=== PATIENT | female | born 1960 | race Caucasian/White ===

== ENCOUNTER 2017-04-25 08:30 | Outpatient (RCR) | payer MEDICARE, SELFPAY | END 2017-05-04 | LOC: PT 08:30 | PROVIDERS: PCP Internal Medicine Adolescent Medicine; Visit Provider Internal Medicine Adolescent Medicine | DX: M54.5 Low back pain (principal); M25.551 Pain in right hip; M25.552 Pain in left hip | CPT/HCPCS: G8978; G8979; G8980; 97010; 97014; 97110; 97163; G0283 ==

== ENCOUNTER → 2018-09-19 15:04 | Outpatient (CLI) | payer MEDICARE, SELFPAY ==
[2018-09-19 18:10] LABS: Alanine Aminotransferase 18 U/L (12-78); Albumin Level 4.1 gm/dL (3.4-5.0); Albumin/Globulin Ratio 1.2 (1.1-1.8); Alkaline Phosphatase 105 U/L (46-116); Anion Gap 14.2 mEq/L (5-15); Aspartate Amino Transferase 15 U/L (15-37); Bilirubin,Total 0.4 mg/dL (0.2-1.0); Blood Urea Nitrogen 10 mg/dL (7-18); Calcium 9.2 mg/dL (8.5-10.1); Carbon Dioxide 32 mmol/L (21.0-32.0); Chloride 101 mmol/L (98-107); Chol/HDL Ratio 3.6 (1-3.5); Cholesterol 171 mg/dL (140-200); Creatinine,Serum 0.82 mg/dL (0.55-1.02); Estimated Glomerular Filt Rate 71 ml/min (>60); GFR (African American) 86 ML/MIN (>60); Globulin 3.4 gm/dl (1.3-3.2); Glucose 85 mg/dL (74-106); HDL Cholesterol 48 mg/dL (29-89); LDL Cholesterol 101 mg/dL (0-130); Potassium 3.2 mmoL/L (3.5-5.1); Sodium 144 mmol/L (136-145); Total Protein,Serum 7.5 gm/dL (6.4-8.2); Triglycerides 109 mg/dL (30-200); VLDL Cholesterol 22 mg/dL (0-40)
[2018-09-21 18:07] LABS: Vitamin D 25 Hydroxy 40.7 ng/mL (30.0-100.0)
== END ==
PROVIDERS: Visit Provider Nurse Practitioner Family
DX: Z00.00 Encounter for general adult medical examination without abnormal findings; E55.9 Vitamin D deficiency, unspecified; I50.30 Unspecified diastolic (congestive) heart failure; Z72.0 Tobacco use
CPT/HCPCS: 36415; 80053; 80061; 82652

== ENCOUNTER → 2019-06-20 17:08 | Outpatient (CLI) | payer MEDICARE, SELFPAY ==
[2019-06-20 17:48] LABS: Basophils % 0.4 % (0.1-2.0); Eosinophils # 0.2 K/mm3 (0.0-0.4); Eosinophils % 1.9 % (0.1-12.0); Hematocrit 48.9 % (37.0-47.0); Hemoglobin 15.6 g/dL (12.2-16.2); Lymphocytes # 3.8 K/mm3 (0.7-4.5); Lymphocytes % 35.9 % (10-50); Mean Corpuscular HGB Conc 31.9 g/dL (31.8-35.4); Mean Corpuscular Hemoglobin 32.3 pg (27.0-31.2); Mean Corpuscular Volume 101.2 fl (81-99); Mean Platelet Volume 7.8 fl (7.4-10.4); Monocytes # 0.5 K/mm3 (0.1-1.0); Monocytes % 4.3 % (1.7-9.3); Neutrophils # 6.2 K/mm3 (1.8-7.8); Neutrophils % 57.5 % (37.0-80.0); Platelet Count 324 K/mm3 (142-424); Red Blood Count 4.83 M/mm3 (4.20-5.40); Red Cell Distribution Width 12.5 % (11.5-17.5); White Blood Count 10.7 K/mm3 (4.8-10.8)
[2019-06-20 18:47] LABS: Alanine Aminotransferase 15 U/L (9-52); Albumin Level 4.1 g/dL (3.4-5.0); Albumin/Globulin Ratio 1.3 (1.1-1.8); Alkaline Phosphatase 147 U/L (46-116); Anion Gap 13.7 mEq/L (5-15); Aspartate Amino Transferase 15 U/L (15-37); Bilirubin,Total 0.4 mg/dL (0.2-1.0); Blood Urea Nitrogen 11 mg/dL (7-18); Calcium 9.1 mg/dL (8.5-10.1); Carbon Dioxide 30 mmol/L (21.0-32.0); Chloride 105 mmol/L (98-107); Creatinine,Serum 0.78 mg/dL (0.55-1.02); Estimated Glomerular Filt Rate 75 ml/min (>60); GFR (African American) 91 ML/MIN (>60); Globulin 3.2 gm/dl (1.3-3.2); Glucose 69 mg/dL (74-106); Magnesium 1.9 mg/dL (1.4-2.2); Potassium 3.7 mmoL/L (3.5-5.1); Sodium 145 mmol/L (137-145); T4 (Thyroxine) 5.8 ug/dl (4.7-13.3); Thyroid Stimulating Hormone 2.34 uIU/ml (0.358-3.740); Total Protein,Serum 7.3 g/dL (6.4-8.2); Triiodothryronine (T3) Uptake 34 % (31-39)
[2019-06-23 20:59] LABS: Vitamin B12 704 pg/mL (232-1245)
[2019-06-23 21:00] LABS: Vitamin D 25 Hydroxy 49.8 ng/mL (30.0-100.0)
[2019-06-27 07:42] LABS: Lamotrigine (Lamictal) 8.8 ug/mL (2.0-20.0)
== END ==
PROVIDERS: Visit Provider Internal Medicine Adolescent Medicine
DX: R56.9 Unspecified convulsions (principal); E55.9 Vitamin D deficiency, unspecified; Z79.899 Other long term (current) drug therapy
CPT/HCPCS: 36415; 80053; 80168; 82607; 82652; 83735; 84436; 84443; 84479; 85025

== ENCOUNTER → 2019-07-17 16:08 | Outpatient (CLI) | payer MEDICARE, SELFPAY ==
--- NOTE | 2019-07-17 16:14 | XR_ITS ---
PROCEDURE: XR CHEST 2V CLINICAL HISTORY: EMPHYSEMA,COUGH,LT SIDED CHEST WALL PAIN COMPARISON: CXR1 CHEST-PORTABLE from 01/07/2013 CXR CHEST(2 VIEWS-NOT PORTABLE) from 08/21/2016 FINDINGS: The cardiomediastinal silhouette and pulmonary vascularity are within normal limits. Minimal atelectatic changes are present in the right lung base laterally. The remaining lungs are clear. No acute bony abnormalities. IMPRESSION: Minimal right basilar atelectasis Dictated by: Anshu Durant MD 07/17/2019 16:27 Electronically signed by Anshu Durant MD in [place] 07/17/2019 16:27
[2019-07-17 16:51] LABS: Basophils # 0.1 K/mm3 (0-0.2); Basophils % 0.4 % (0.1-2.0); Eosinophils # 0.2 K/mm3 (0.0-0.4); Hematocrit 45.3 % (37.0-47.0); Hemoglobin 14.3 g/dL (12.2-16.2); Lymphocytes # 3.9 K/mm3 (0.7-4.5); Lymphocytes % 33.7 % (10-50); Mean Corpuscular HGB Conc 31.6 g/dL (31.8-35.4); Mean Corpuscular Hemoglobin 32.7 pg (27.0-31.2); Mean Corpuscular Volume 103.5 fl (81-99); Mean Platelet Volume 7.8 fl (7.4-10.4); Monocytes # 0.5 K/mm3 (0.1-1.0); Monocytes % 4.3 % (1.7-9.3); Neutrophils # 6.9 K/mm3 (1.8-7.8); Neutrophils % 59.6 % (37.0-80.0); Platelet Count 321 K/mm3 (142-424); Red Blood Count 4.38 M/mm3 (4.20-5.40); Red Cell Distribution Width 12.6 % (11.5-17.5); White Blood Count 11.6 K/mm3 (4.8-10.8)
[2019-07-17 18:05] LABS: Anion Gap 13.2 mEq/L (5-15); Blood Urea Nitrogen 11 mg/dl (7-17); Calcium 9.8 mg/dl (8.4-10.2); Carbon Dioxide 27 mmol/L (22.0-30.0); Chloride 105 mmol/L (98-107); Estimated Glomerular Filt Rate 73 ml/min (>60); GFR (African American) 88 ML/MIN (>60); Glucose 77 mg/dl (74-100); Potassium 4.2 mmoL/L (3.5-5.1); Sodium 141 mmol/L (136-145)
== END ==
PROVIDERS: Visit Provider Nurse Practitioner Family
DX: R05 Cough (principal); R07.89 Other chest pain; J43.1 Panlobular emphysema
CPT/HCPCS: 36415; 71046; 80048; 85025

== ENCOUNTER 2019-11-11 19:46 | Emergency (ER) | payer MEDICARE, SELFPAY ==
[2019-11-11 20:06] VITALS: BP 110/75; PULSE 69; RESP 19; TEMP 36.7; O2SAT 99; BMI 23.4
[2019-11-11 20:19] VITALS: BP 110/75; PULSE 69; RESP 19; TEMP 36.7; O2SAT 99; BMI 23.4
--- NOTE | 2019-11-11 20:38 | HMH.EDUTC ---
[facility] [place] Impression: Oral hang Shingles rash Qualifiers: Herpes zoster complications: without complications Qualified Code(s): B02.9 - Zoster without complications Disposition: Home, Self-Care Condition on Discharge: Good Instructions: DI for Thrush, Thrush-Adult, Shingles, DI for Shingles Additional Instructions: Take medication as prescribed Follow up with family doctor if no improvement or any worsening of symptoms Return if needed Straight to ER if any worsening of symptoms Keep area clean and dry Use Nystatin as prescribed swish and spit Prescriptions: Acyclovir [Acyclovir 800mg tab] 800 mg PO 5XDAY 7 Days #35 tab Prescription Printed Nystatin [Nystatin Susp 500,000 Units/5mL Udc] 4 ml PO QID 10 Days #160 udc Prescription Printed Referrals: Reinier Bai MD [Primary Care Provider] - As needed Time of Disposition: 21:10 Medical Decision Making - Roosevelt Inquiry Pt receiving controlled substance: No Roosevelt was queried for this patient: No Vital Signs: 11/11/19 20:06 11/11/19 20:19 Temperature 98.0 F 98.0 F Temperature Source Oral Oral Pulse Rate [Right Brachial] 69 69 Respiratory Rate 19 19 Blood Pressure [Right Arm] 110/75 110/75 Blood Pressure [Right Radial Artery] 110/75 Blood Pressure Mean [Right Arm] 86 86 Blood Pressure Mean [Right Radial Artery] 86 Blood Pressure Source [Right Arm] Automatic Cuff Automatic Cuff Blood Pressure Source [Right Radial Artery] Automatic Cuff Blood Pressure Position [Right Arm] Sitting Sitting Blood Pressure Position [Right Radial Artery] Sitting 02 Sat by Pulse Oximetry 99 99 Oxygen Delivery Method Room Air Room Air [facility] [place] - General Stated complaint: Rash Time Seen by Provider: 11/11/19 20:38 Mode of Arrival: Ambulatory Source of Information: Patient Limitations: No Limitations Description of Symptoms (Recalled from Triage Doc. by RN): PATIENT C/O RASH TO NECK HEENT Symptoms (Recalled from RN notes): No Resp Symptoms (Recalled from RN notes): No Skin Symptoms (Recalled from RN notes): Yes MS Symptoms (Recalled from RN notes): No Functional Status (Recalled from RN notes): WNL - History of Present Illness Provider Complaint: Patient states that she has a history of shingles States that she has been having a rash on her neck that stared yesterday and it is burning and feeling prickly States that she noticed it looked like it was going up her throat and spreading to her face. States that also she thinks she may have a yeast infection in her mouth - Related Data Previous Rx's Medication Instructions Recorded Acyclovir [Acyclovir 800mg tab] 800 mg PO 5XDAY 7 Days #35 tab 11/11/19 Nystatin [Nystatin Susp 500,000 4 ml PO QID 10 Days #160 udc 11/11/19 Units/5mL Udc] Allergies Allergy/AdvReac Type Severity Reaction Status Date / Time No Known Allergies Allergy Unverified 04/24/17 14:29 - Worker's Comp Is this a Worker's Comp case?: No [facility] History - Hepatitis A Screen Drug use history?: No High risk sexual behaviors?: No History of sexually transmitted infection?: No Currently employed?: No Childcare worker?: No Do you have indoor plumbing?: Yes Do you have electricity?: Yes Attestation statement:: This patient has been screened for Hepatitis A risk factors. I have reviewed the patient's past medical history: Yes Fractures: Yes (RIB) - Social History Alcohol Intake: never Occupational Status: other ROS Obtained: Yes All systems reviewed & no additional complaints, Yes Systems reviewed as appropriate & no additional complaints - Constitutional Constitutional: Reports system reviewed and no additional complaints, except as docu - Eyes Eyes: Reports system reviewed and no additional complaints, except as docu - ENT Ears, Nose, Mouth, and Throat: Reports other (white patches in roof of mouth) - Respiratory Respiratory: Yes system reviewed and no additional complaints, except as docu
[2019-11-11 21:15] VITALS: BP 110/75; PULSE 69; RESP 19; TEMP 36.7; O2SAT 99
== END 2019-11-11 21:20 | disposition home or self-care (01) ==
PROVIDERS: Emergency Provider Nurse Practitioner; PCP Internal Medicine Adolescent Medicine
DX: B02.9 Zoster without complications (principal); B37.0 Candidal stomatitis
CPT/HCPCS: 99201

== ENCOUNTER → 2020-08-18 14:22 | Outpatient (CLI) | payer MEDICARE, SELFPAY ==
--- NOTE | 2020-08-18 14:30 | XR_ITS ---
PROCEDURE: XR SHOULDER LT MIN 2V CLINICAL INDICATION: LT SHOULDER PAIN COMPARISON: No exams were available for comparison FINDINGS: No fracture or dislocation. No lytic or blastic change. There is normal mineralization. There are mild osteoarthritic changes of the glenohumeral joint. No significant subacromial stenosis. A small well-circumscribed cystic areas present in the humeral head and may be due to small geode. This measures approximately 6 mm. Other findings:None. IMPRESSION: Mild osteoarthritic change of the glenohumeral joint Dictated by: Anshu Durant MD 08/18/2020 15:50 Anshu Durant MD in [place] 08/18/2020 15:50
== END ==
PROVIDERS: PCP Internal Medicine Adolescent Medicine; Visit Provider Physician Assistant Medical
DX: M25.512 Pain in left shoulder (principal)
CPT/HCPCS: 73030

== ENCOUNTER → 2020-10-12 12:12 | Outpatient (CLI) | payer MEDICARE, SELFPAY ==
[2020-10-12 13:15] LABS: Basophils # 0.1 K/mm3 (0-0.2); Basophils % 0.7 % (0.1-2.0); Eosinophils # 0.2 K/mm3 (0.0-0.4); Eosinophils % 2.3 % (0.1-12.0); Hematocrit 43.8 % (37.0-47.0); Hemoglobin 14.7 g/dL (12.2-16.2); Lymphocytes # 3.1 K/mm3 (0.7-4.5); Lymphocytes % 36.5 % (10-50); Mean Corpuscular HGB Conc 33.5 g/dL (31.8-35.4); Mean Corpuscular Hemoglobin 33.8 pg (27.0-31.2); Mean Corpuscular Volume 100.8 fl (81-99); Mean Platelet Volume 8.2 fl (7.4-10.4); Monocytes # 0.4 K/mm3 (0.1-1.0); Monocytes % 4.9 % (1.7-9.3); Neutrophils # 4.7 K/mm3 (1.8-7.8); Neutrophils % 55.7 % (37.0-80.0); Platelet Count 302 K/mm3 (142-424); Red Blood Count 4.35 M/mm3 (4.20-5.40); White Blood Count 8.4 K/mm3 (4.8-10.8)
[2020-10-12 14:14] LABS: Carbon Dioxide 34 mmol/L (22.0-30.0); Chloride 101 mmol/L (98-107); Potassium 3.8 mmoL/L (3.5-5.1); Sodium 141 mmol/L (136-145)
[2020-10-12 14:15] LABS: Alanine Aminotransferase 11 U/L (12-78); Albumin Level 4.5 g/dl (3.5-5.0); Albumin/Globulin Ratio 1.8 (1.1-1.8); Alkaline Phosphatase 117 U/L (38-126); Anion Gap 9.8 mEq/L (5-15); Aspartate Amino Transferase 29 U/L (14-36); Bilirubin,Total 0.5 mg/dl (0.2-1.3); Blood Urea Nitrogen 12 mg/dl (7-17); Calcium 9.2 mg/dl (8.4-10.2); Chol/HDL Ratio 3.1 (1-3.5); Cholesterol 155 mg/dl (140-200); Estimated Glomerular Filt Rate 73 ml/min (>60); GFR (African American) 88 ML/MIN (>60); Globulin 2.5 g/dL (1.3-3.2); Glucose 76 mg/dl (74-100); HDL Cholesterol 50 mg/dl (40-60); Triglycerides 102 mg/dl (30-150); VLDL Cholesterol 20 mg/dL (0-40)
[2020-10-12 14:26] LABS: Direct LDL Cholesterol 79.54 mg/dL (100-129)
[2020-10-12 14:32] LABS: 25-OH Vitamin D, Total 43.4 ng/mL (30-100)
[2020-10-12 14:44] LABS: Thyroid Stimulating Hormone 4.73 uIU/mL (0.465-4.68)
[2020-10-12 15:04] LABS: Vitamin B12 539 pg/mL (239-931)
== END ==
PROVIDERS: Visit Provider Nurse Practitioner Family
DX: Z00.00 Encounter for general adult medical examination without abnormal findings (principal); I50.30 Unspecified diastolic (congestive) heart failure; I11.0 Hypertensive heart disease with heart failure; R30.0 Dysuria; R53.83 Other fatigue
CPT/HCPCS: 36415; 80053; 80061; 82306; 82607; 84443; 85025; 87086; 87088; 87186

== ENCOUNTER → 2020-10-12 13:28 | Outpatient (CLI) | payer MEDICARE, SELFPAY | PROVIDERS: Visit Provider Nurse Practitioner Family | DX: R30.0 Dysuria (principal) | CPT/HCPCS: 87086; 87088; 87186 ==

== ENCOUNTER → 2020-10-26 15:03 | Outpatient (CLI) | payer MEDICARE, SELFPAY ==
--- NOTE | 2020-10-26 15:07 | CT_ITS ---
PROCEDURE: CT LUNG SCREENING CLINICAL INDICATION: H/O NICOTINE DEPENDENCE Current smoker 50 pack year smoking history copd Emphysema No prior COMPARISON: No exams were available for comparison TECHNIQUE: The exam was performed on a GE Light Speed [address] scanner using 2.90 mGy CTDI. A low dose helical CT CHEST was performed on a multi-detector scanner. All CT scans at the facility use one or more dose reduction, viz: automated exposure control, ma/kV adjustment per patient size (including targeted exams where dose is matched to indication, i.e. head), or iterative reconstruction technique. The LDCT was performed in a facility that meets the criteria for the screening program. Data regarding this exam was submitted to ACR which is an approved registry. The order for this exam indicates that it came as a result of a lung cancer screening counseling shard decision-making visit that included all the elements required of such a visit including smoking cessation. The radiologist interpreting this exam meets the CMS criteria for the LDCT lung cancer screening program. The exam is reported using the Lung-RADS classification scale and reported to the ACR registry. NOTE: This study was performed for the specific purposes of lung cancer screening and is not an alternative to diagnostic chest CT. RADIATION DOSE: CTDI vol(CT dose Index-volume) = 2.90mG DLP (Dose Length Product) = 102.38 mGcm FINDINGS: COPD with centrilobular emphysema with scattered areas of scarring. There is a spiculated 8x 8 x 10 mm nodule within the right apex medially which is suspicious. This nodule is noncalcified. There is mild bronchial thickening. On image 23 there is a subpleural nodule in the right upper lobe at 3 mm and a 4 mm nodule in the right upper lobe medially there are few small hyperdense nodules suggestive small granulomas. No mediastinal or hilar adenopathy apparent. OTHER FINDINGS: Coronary artery calcifications. The right adrenal gland is enlarged at 2 cm with an average density of -5 Hounsfield units consistent with an adenoma. The left adrenal gland is also enlarged at 2.2 cm with an average density of -17 Hounsfield units consistent with an adenoma. On the most inferior image there is an isodense nodule lying along the left renal vein at 2 [address] in[address] imaged. Abdomen CT without and with IV contrast and oral contrast may provide further evaluation. There are old bilateral rib fractures. IMPRESSION: Lung-RADS Category 4A Suspicious. Spiculated nodule in the right apex. This could represent an area of scarring or early neoplasm. Follow-up: Suggest PET-CT for further evaluation. Bilateral adrenal nodules. Indeterminate 2 cm soft tissue density lies anterior to the left renal vein. This is incompletely imaged. Suggest abdomen CT without and with contrast with 3 phase imaging and with oral contrast Dictated by: Anshu Durant MD 11/02/2020 08:32 Anshu Durant MD in [place] 11/02/2020 08:32
--- NOTE | 2020-10-26 15:07 | MM_ITS ---
PROCEDURE INFORMATION: Exam: Screening 3D Mammography Exam date and time: 10/26/2020 3:07 PM Age: 60 years old Clinical indication: Encounter for screening mammogram for malignant neoplasm of breast TECHNIQUE: Imaging protocol: Screening tomosynthesis and 2D mammography including computer-aided detection (CAD) when performed. Patient difficult to position. Patient kept shaking during the examination. COMPARISON: [facility] DIG MAMM-SCREEN KERRI 03/02/2016 10:13 AM FINDINGS: MAMMOGRAPHY: Breast composition: The breast tissue is composed of scattered areas of fibroglandular density. Mass: None. Architectural distortion: None. Calcifications: No suspicious calcifications. Asymmetric density: None. Skin thickening: None. Axillary adenopathy: None. Other findings: There is limited evaluation of the pectoralis muscles and inframammary folds bilaterally. Patient unable to tolerate the exam. IMPRESSION: Limited exam. No mammographic evidence of malignancy. Annual screening is recommended unless otherwise clinically indicated. ASSESSMENT: BI-RADS Category 1: Negative
== END ==
PROVIDERS: PCP Internal Medicine Adolescent Medicine; Visit Provider Nurse Practitioner Family
DX: Z12.31 Encounter for screening mammogram for malignant neoplasm of breast (principal); Z87.891 Personal history of nicotine dependence; Z12.2 Encounter for screening for malignant neoplasm of respiratory organs
CPT/HCPCS: 71271; 77063; 77067

== ENCOUNTER → 2021-03-14 07:55 | Outpatient (CLI) | payer MEDICARE, SELFPAY ==
--- NOTE | 2021-03-14 08:10 | CT_ITS ---
PROCEDURE: CT CHEST WO CON CLINICAL INDICATION: lung nodule COMPARISON: CT CT LUNG SCREENING from 10/26/2020 TECHNIQUE: Axial images obtained with sagittal and coronal reformats. All CT scans at the facility use one or more dose reduction, viz: automated exposure control, ma/kV adjustment per patient size (including targeted exams where dose is matched to indication, i.e. head), or iterative reconstruction technique. FINDINGS: HEART AND MEDIASTINAL STRUCTURES: Coronary artery calcifications. No mediastinal or hilar mass or adenopathy. There is a small exophytic right thyroid nodule projecting off the anterior medial aspect of the right thyroid gland measuring approximately 1 cm. LUNGS AND PLEURAL SPACES: COPD with centrilobular emphysema. The spiculated right apical nodule is once again noted but appears slightly smaller measuring 5 x 5 mm previously 10 x 8 mm. Small linear opacity in the right apex medially image 19 series 3 with nodular component superiorly at 3 mm is noted not readily apparent previously possibly due to an area of atelectatic change. A new subpleural opacity is present in the left upper lobe laterally image 22 series 3 also somewhat linear in nature and may be due to an area of subpleural atelectatic change. A new 5 mm Patrizia fissural nodule is present in the superior segment of the left lower lobe. 3 mm nodule right upper lobe medially image 25 series 3 unchanged. Subpleural opacity right upper lobe at 3 mm unchanged. New 5 x 2 mm opacity left upper lobe image 17 series 3. No effusions or infiltrates. BONY STRUCTURES: No acute bony abnormalities apparent.Old left-sided rib fractures. UPPER ABDOMEN: Bilateral hypodense adrenal nodules consistent with adenomas. I so density anterior to the left renal vein once again noted and may be related to inferior extension of the left adrenal adenoma. CT abdomen with and without contrast with adrenal washout images may provide further evaluation ADDITIONAL FINDINGS: No other significant abnormalities. IMPRESSION: Spiculated right apical nodule appears slightly smaller. There are other stable nodules present as well as new small subpleural and parenchymal opacities as described above. Differential diagnosis would include inflammatory/infectious etiology versus neoplasm such as metastatic disease. Continued follow-up is suggested. New small right thyroid nodule at approximately 1 cm. Adenomatous involvement of the adrenal glands. Low-density nodule anterior to the left renal vein may represent extension of the left adrenal adenoma and may be confirmed with CT abdomen without and with contrast with adrenal washout images Dictated by: Asnhu Durant MD 03/15/2021 09:57 Anshu Durant MD in [place] 03/15/2021 09:57
== END ==
PROVIDERS: PCP Internal Medicine Adolescent Medicine; Visit Provider Internal Medicine Pulmonary Disease
DX: R91.8 Other nonspecific abnormal finding of lung field (principal)
CPT/HCPCS: 71250

== ENCOUNTER → 2021-04-13 14:23 | Outpatient (CLI) | payer MEDICARE, SELFPAY ==
--- NOTE | 2021-04-13 14:23 | US_ITS ---
PROCEDURE: US THYROID CLINICAL INDICATION: Thyroid nodule COMPARISON: US THY US THYROID from 12/02/[address] CHEST WO CON from 03/14/2021 FINDINGS: Right lobe: 3.4 x 1.5 x 1.3 cm. Diffuse heterogeneous echogenicity. Mostly cystic nodule in the upper pole at 5 mm. Hypoechoic nodule upper pole anteriorly at 2 mm. Left lobe: 3.9 x 1.6 x 1.3 cm. 3 mm hypoechoic nodule upper pole. Diffuse heterogeneous echogenicity. Isthmus: The isthmus has an unremarkable appearance. There was a questionable isthmus nodule on the CT scan which was probably due to partial volume averaging artifact from the right lobe and not a true nodule. Additional findings: IMPRESSION: Bilateral heterogeneous echogenicity of the thyroid gland with benign-appearing nodules. Dictated by: Anshu Durant MD 04/13/2021 16:44 Anshu Durant MD in [place] 04/13/2021 16:44
== END ==
PROVIDERS: PCP Internal Medicine Adolescent Medicine; Visit Provider Internal Medicine Pulmonary Disease
DX: E04.1 Nontoxic single thyroid nodule (principal)
CPT/HCPCS: 76536

== ENCOUNTER → 2021-06-16 14:56 | Outpatient (CLI) | payer MEDICARE, SELFPAY ==
--- NOTE | 2021-06-16 14:56 | CT_ITS ---
FINAL REPORT TECHNIQUE: Axial CT images were performed from the lung apices through the upper abdomen. Coronal reformats were submitted. This study was performed with techniques to keep radiation doses as low as reasonably achievable (ALARA). Individualized dose reduction techniques using automated exposure control or adjustment of mA and/or kV according to the patient's size were employed. CLINICAL HISTORY: 3-month follow-up, nodule COMPARISON: 03/14/2021 FINDINGS: There is no axillary adenopathy. There is no hilar or mediastinal mass or adenopathy. Heart size is normal. There is no pericardial or pleural effusion. There is mild scarring and moderate emphysema. There is a right apical nodule measuring 5 mm, previously measured 5 mm. This is well-seen on image #14. Multiple other smaller nodules are seen bilaterally. These are all stable in size and appearance. There are several calcified granulomas. There is bilateral adrenal gland enlargement, likely adenomas. This is stable since the prior. IMPRESSION: Multiple small nodules, stable since prior. Consider additional follow-up CT in 6-12 months. Reviewed, Interpreted and Dictated by Fab Jhaveri III, MD Transcribed by Consuelo Myers Authenticated by Fab Jhaveri III, MD on 06/16/2021 04:27:[address] [facility]
== END ==
PROVIDERS: PCP Internal Medicine Adolescent Medicine; Visit Provider Internal Medicine Pulmonary Disease
DX: R91.8 Other nonspecific abnormal finding of lung field (principal)
CPT/HCPCS: 71250

== ENCOUNTER → 2021-09-08 11:37 | Outpatient (CLI) | payer MEDICARE, SELFPAY | PROVIDERS: PCP Internal Medicine Adolescent Medicine; Visit Provider Internal Medicine Pulmonary Disease | DX: R06.00 Dyspnea, unspecified (principal) | CPT/HCPCS: 94060; 94618; 94726; 94729 ==

== ENCOUNTER 2023-11-07 14:35 | Outpatient (CLI) | payer MEDICARE, SELFPAY ==
--- NOTE | 2023-11-07 14:47 | XR_ITS ---
FINAL REPORT CLINICAL HISTORY: spondylosis, neck and back pain COMPARISON: None FINDINGS: CERVICAL SPINE 5 views were obtained. There is no acute fracture or malalignment. There is mild and moderate degenerative change of the lower cervical spine. Mild kyphosis is centered at C5. There is mild right C3-4 and left C3-4 and C5-6 neural foraminal narrowing. IMPRESSION: Mild and moderate degenerative changes with levels of mild neural foraminal narrowing as above. LUMBOSACRAL SPINE 6 views of the lumbar spine were obtained including flexion and extension views. There is no acute fracture or malalignment. There is rightward curvature of the lumbar spine. Mild degenerative changes are noted. There are vascular calcifications. No abnormal movement is noted on flexion or extension views. IMPRESSION: Mild degenerative changes. No abnormal movement on flexion or extension. Reviewed, Interpreted and Dictated by Fab Jhaveri III, MD Transcribed by Abeba Mccrary Authenticated and [facility]
== END 2023-11-07 23:59 | disposition home or self-care (01) ==
LOC: RAD 14:39
PROVIDERS: PCP Physician Assistant Medical; Visit Provider Physician Assistant Medical
DX: M47.812 Spondylosis without myelopathy or radiculopathy, cervical region (principal); M47.816 Spondylosis without myelopathy or radiculopathy, lumbar region
CPT/HCPCS: 72084

== ENCOUNTER 2023-12-25 19:07 | Inpatient (IN) | payer MEDICARE, SELFPAY ==
[2023-12-25] VITALS (11 sets, daily range): BP systolic 141–150; BP diastolic 71–89; PULSE 80–129; RESP 20–26; TEMP 36.9–37.1; O2SAT 92–99; BMI 15.7
--- NOTE | 2023-12-25 19:26 | XR_ITS ---
PROCEDURE INFORMATION: Exam: XR Chest Exam date and time: 12/25/2023 7:57 PM Age: 63 years old Clinical indication: Cough and shortness of breath; Additional info: Cough, SOA TECHNIQUE: Imaging protocol: Radiologic exam of the chest. Views: 1 view. COMPARISON: CT CHEST WO CON 06/16/2021 3:05 PM FINDINGS: Lungs: Hyperinflated lungs consistent with emphysema. Mild ill-defined ground-glass opacities at both lung bases. Pleural spaces: Normal. No pleural effusion. No pneumothorax. Heart/Mediastinum: Normal. No cardiomegaly. Vasculature: Atherosclerotic thoracic aorta. Bones/joints: Old left posterior 8th rib fracture. IMPRESSION: 1. Emphysema. 2. Mild ill-defined ground-glass opacities at both lung bases could be due to atypical pneumonia.
--- NOTE | 2023-12-25 19:29 | ED_ITS ---
Discharge Plan Disposition Patient Disposition: Admitted Condition: Critical Clinical Impressions Clinical Impression: Acute on chronic respiratory failure with hypoxia and hypercapnia, Acute respiratory distress, Pneumonia, Acute exacerbation of chronic obstructive pulmonary disease Discharge ED Provider: Marah Live HPI General Chief Complaint: Shortness of Breath/Dyspnea Stated Complaint: Difficulty breathing Time Seen by Provider: 12/25/23 19:17 Mode of Arrival: Wheelchair Source of Information: Patient Limitations: No Limitations Description of Symptoms (Recalled from ER Triage Doc. by RN): Patient presents to ED with SOB and cough that started two days ago. Patient usually wears 2L O2 at bedtime and PRN, past two days patient has been wearing O2 cont. Patient denies N/V/D and fever. Patient is currentyl on 4L O2 with sats 94%. History of Present Illness HPI narrative: This patient is a 63-year-old female with a history of COPD intermittently on home oxygen as needed, tobacco dependence, multiple pulmonary nodules, and unintentional weight loss presenting to the emergency department for evaluation with concern for shortness of breath. Patient states that she developed shortness of breath and cough 2 to 3 days ago and has had very thick sputum that she is having difficulty getting up. She states she feels like she cannot get her breath. She notes pressure in her chest as a result of this. No other acute concerning abnormalities at this time. Related Data Home Medications ?Medication ?Instructions ?Recorded ?Confirmed atorvastatin 40 mg tablet 40 mg PO HS 03/09/21 12/26/23 furosemide 40 mg tablet 40 mg PO BID 03/09/21 12/26/23 lamotrigine 300 mg tablet,extended 300 mg PO DAILY 03/09/21 12/26/23 release 24 hr mirtazapine 30 mg tablet 30 mg PO HS 03/09/21 12/26/23 oxycodone-acetaminophen 7.5 mg-325 1 tab PO BID 03/09/21 12/26/23 mg tablet potassium chloride 20 mEq 20 meq PO DAILY 03/09/21 12/26/23 tablet,extended release(part/cryst) sertraline 100 mg tablet 200 mg PO DAILY 03/09/21 12/26/23 spironolactone 50 mg tablet 50 mg PO BID 03/09/21 12/26/23 trazodone 150 mg tablet 150 mg PO HS 03/09/21 12/26/23 albuterol sulfate 90 mcg/actuation 1 inh inhalation BIDP PRN 12/26/23 12/26/23 aerosol inhaler shortness of breath or wheezing alendronate 70 mg tablet 70 mg PO WEEKLY 12/26/23 12/26/23 aspirin 81 mg tablet,delayed 81 mg PO DAILY 12/26/23 12/26/23 release glycopyrrolate 9 mcg-formoterol 2 puff inhalation BID 12/26/23 12/26/23 4.8 mcg HFA aerosol inhaler (Bevespi Aerosphere) Allergies Allergy/AdvReac Type Severity Reaction Status Date / Time No Known Allergies Allergy Verified 10/05/21 10:03 [facility] Disclaimer: The information contained in this section may have been updated after the patient was seen, as this information can be updated by other users. Medical History Tobacco abuse disorder Tobacco abuse counseling Multiple pulmonary nodules Smoking greater than 30 pack years Dyspnea on exertion Social History Smoking Status: Current every day smoker alcohol intake: never current occupational status: other Travel in the last 8 weeks: None ROS Obtained: Yes All systems reviewed & no additional complaints except as documented Physical Exam General General appearance: alert, in distress and cachectic Comment: In respiratory distress. Appears much older than stated age. Cachectic Head Head exam: atraumatic and normocephalic Eye Eye exam: Present normal appearance, PERRL and EOMI ENT ENT exam: Present normal exam, normal oropharynx, mucous membranes moist and normal external ear exam Neck Neck exam: Present normal inspection, full ROM and trachea midline; Absent tenderness Chest Chest inspection: Present normal inspection and symmetric chest wall rise; Absent tenderness Respiratory Respiratory exam: Present respiratory distress, accessory muscle use, prolonged expiratory phase and other (Respiratory distress with tachypnea, accessory muscle use, prolonged expiratory phase. Significantly diminished breath sounds bilaterally.) Cardiovascular Cardiovascular exam: Present normal rhythm and tachycardia Abdominal Exam Abdominal exam: Present soft; Absent distention, tenderness or guarding Extremities Exam Extremities exam: Present normal inspection, full ROM and normal capillary refill; Absent tenderness or edema Back Exam Back exam: Present normal inspection and full ROM; Absent tenderness Neurological Exam Neurological exam: Present alert, oriented X3, CN II-XII intact and normal gait; Absent motor sensory deficit Psychiatric Psychiatric exam: Present normal affect and normal mood Skin Skin exam: Present warm and dry HEART Score HEART Score HEART Score assessment performed?: Yes History (anamnesis): Slightly suspicious ECG: Non-specific disturbance Age: >65 years Risk factors: 3 or more risk factors Troponin: </= normal limit HEART Score: 5 Critical Care Critical Care Time Critical Care Time: Yes Attestation: On 12/25/23, the high probability of a clinically significant, sudden or life threatening deterioration of the following system(s) required my full and direct attention, intervention and personal management. The time I documented below is in addition to time spent performing reported procedures but includes the following listed in this critical care notation. Total Time Total Critical Care Time: 45 Medical Decision Making Medical Records Medical records reviewed: Yes I reviewed the patient's medical records. [place] Inquiry Pt receiving controlled substance: No Vital Signs Vital Signs: 12/25/23 19:09 12/25/23 19:32 12/25/23 19:32 Temperature 98.4 F Temperature Source Oral Pulse Rate 96 H Pulse Rate [Right Brachial] 104 H Respiratory Rate 20 Blood Pressure Blood Pressure [Right Arm] 150/89 H Blood Pressure Mean [Right Arm] 109 Blood Pressure Source Blood Pressure Source [Right Arm] Automatic Cuff Blood Pressure Position Blood Pressure Position [Right Arm] Supine 02 Sat by Pulse Oximetry 94 L 92 L Oxygen Delivery Method Nasal Cannula Nasal Cannula Oxygen Flow Rate (LPM) 4 4 12/25/23 20:05 12/25/23 20:33 12/25/23 20:58 Temperature Temperature Source Pulse Rate 129 H 116 H Pulse Rate [Right Brachial] Respiratory Rate Blood Pressure Blood Pressure [Right Arm] Blood Pressure Mean [Right Arm] Blood Pressure Source Blood Pressure Source [Right Arm] Blood Pressure Position Blood Pressure Position [Right Arm] 02 Sat by Pulse Oximetry 94 L Oxygen Delivery Method BiPAP Oxygen Flow Rate (LPM) 12/25/23 21:47 Temperature 98.8 F Temperature Source Axillary Pulse Rate 80 Pulse Rate [Right Brachial] Respiratory Rate 20 Blood Pressure 142/82 H Blood Pressure [Right Arm] Blood Pressure Mean [Right Arm] Blood Pressure Source Automatic Cuff Blood Pressure Source [Right Arm] Blood Pressure Position Supine Blood Pressure Position [Right Arm] 02 Sat by Pulse Oximetry Oxygen Delivery Method BiPAP Oxygen Flow Rate (LPM) Lab Data Labs: Lab Results 12/25/23 19:26: VBG pH 7.38, VBG pCO2 50.9, VBG pO2 46.5 H, VBG HCO3 29.3, VBG Total CO2 30.9 H, VBG O2 Saturation 84.3 H, VBG Base Excess 4.1 H, VBG Lactic Acid 1.6 12/25/23 19:30: WBC 9.7, RBC 4.42, Hgb 14.6, Hct 47.5 H, MCV 107.5 H, MCH 33.0 H , MCHC 30.7 L, RDW 13.1, Plt Count 298, MPV 8.0, Neut % (Auto) 81.8 H, Lymph % (Auto) 10.0, [place] % (Auto) 6.4, Eos % (Auto) 0.4, Baso % (Auto) 1.3, Neut # (Auto) 7.9 H, Lymph # (Auto) 1.0, [place] # (Auto) 0.6, Eos # (Auto) 0.0, Baso # (Auto) 0.1, D-Dimer 0.49, Sodium 140, Potassium 3.3 L, Chloride 102, Carbon Dioxide 31 H, Anion Gap 10.3, BUN 14, Creatinine 0.60, Estimated Creat Clear 33, Estimated GFR 100, Est GFR ( Amer) 121, Glucose 123 H, Lactate 1.2, C alcium 10.3 H, Magnesium 1.4 L, Total Bilirubin 0.3, AST 40 H, ALT 25, Alkaline Phosphatase 85, Troponin I < 0.01, C-Reactive Protein 85.7 H, NT-Pro-B Natriuret Pep 186 H 12/25/23 19:30: NT-Pro-B Natriuret Pep 189 H, Total Protein 7.4, Albumin 4.1, G lobulin 3.3 H, Albumin/Globulin Ratio 1.2, Procalcitonin 0.158 12/25/23 19:30: Procalcitonin 0.178 12/25/23 21:15: VBG pH 7.12 L, VBG pCO2 90.2 H, VBG pO2 106.9 H, VBG HCO3 28.6, VBG Total CO2 31.4 H, VBG O2 Saturation 96.5 H, VBG Base Excess -0.8, VBG Lactic Acid 1.5 12/25/23 19:30 12/25/23 19:30 Response Orders (Tests/Meds): ED MEDICATIONS Generic Name Dose Route Start Last Admin Trade Name Freq PRN Reason Stop Dose Admin Albuterol/Ipratropium 3 ml 12/26/23 14:00 Ipratropium/Albuterol 3 Ml [facility] 01/25/24 13:59 Q4RT KOJO Atorvastatin Calcium 40 mg 12/26/23 21:00 Atorvastatin 40mg Tablet PO 01/25/24 20:59 HS KOJO Budesonide 0.5 mg 12/26/23 18:00 Budesonide 0.5mg/2ml [facility] 01/25/24 17:59 BIDRT KOJO Enoxaparin Sodium 30 mg 12/26/23 09:00 12/26/23 08:55 Enoxaparin 30mg/0.3ml Syringe SQ 01/25/24 08:59 30 mg DAILY KOJO Administration Furosemide 40 mg 12/26/23 09:00 12/26/23 08:55 Furosemide 40 Mg Tablet PO 01/25/24 08:59 40 mg DAILY KOJO Administration Azithromycin 500 mg/ Sodium 250 mls @ 250 mls/hr 12/26/23 21:00 Chloride IV 01/05/24 20:59 2100 KOJO Ceftriaxone Sodium 1 gm/ 50 mls @ 100 mls/hr 12/26/23 09:00 12/26/23 08:55 Sodium Chloride IV 01/05/24 08:59 100 mls/hr 0900 KOJO Administration Lamotrigine 150 mg 12/26/23 21:00 Lamotrigine 100mg Tablet PO 01/25/24 20:59 BID KOJO Methylprednisolone Sodium Succinate 40 mg 12/25/23 21:15 12/26/23 06:15 Methylprednisolone Sod Succ 40mg Vial IV 01/24/24 21:14 40 mg Q8H KOJO Administration Mirtazapine 30 mg 12/26/23 21:00 Mirtazapine 15 Mg Tablet PO 01/25/24 20:59 HS KOJO Oxycodone/Acetaminophen 1 each 12/25/23 21:15 Oxycodone 7.5mg W/Apap 325mg Tablet PO 01/24/24 21:14 Q6HP PRN Moderate Pain (4-6) Ropinirole HCl 1 mg 12/26/23 21:00 Ropinirole 1mg Tablet PO 01/25/24 20:59 HS KOJO Sertraline HCl 200 mg 12/27/23 09:00 Sertraline 100mg Tablet PO 01/26/24 08:59 DAILY KOJO Sodium Chloride 3 ml 12/25/23 20:15 12/26/23 11:19 Sodium Chloride 3% 15ml [facility] 01/24/24 20:14 3 ml ONCE PRN Administration [employer] Sodium Chloride 10 ml 12/26/23 11:22 Sodium Chloride 0.9% 10ml Flush Syringe IV 01/25/24 11:21 NEEDED PRN Maintain IV Site Trazodone HCl 100 mg 12/26/23 21:00 Trazodone 50mg Tablet PO 01/25/24 20:59 HS KOJO Discontinued Medications Generic Name Dose Route Start Last Admin Trade Name Freq PRN Reason Stop Dose Admin Albuterol Sulfate 20 mg 12/25/23 20:04 12/25/23 20:33 Albuterol 0.083% 2.5 Mg/3 Ml [facility] 12/25/23 20:05 20 mg ONCE ONE Administration Albuterol/Ipratropium 9 ml 12/25/23 19:26 12/25/23 19:32 Ipratropium/Albuterol 3 Ml [facility] 12/25/23 19:27 9 ml ONCE ONE Administration Albuterol/Ipratropium 3 ml 12/26/23 12:00 12/26/23 11:19 Ipratropium/Albuterol 3 Ml [facility] 01/25/24 11:59 3 ml Q6RT KOJO Administration Magnesium Sulfate 2 gm in 50 mls @ 50 mls/hr 12/25/23 20:01 12/25/23 20:17 Magnesium Sulfate 2gm/50ml Premix IV 12/25/23 21:00 50 mls/hr ONCE ONE Administration Cefepime HCl 2 gm/ Sodium 100 mls @ 200 mls/hr 12/25/23 20:15 12/25/23 20:34 Chloride IV 12/25/23 20:44 200 mls/hr ONCE ONE Administration Azithromycin 500 mg/ Sodium 250 mls @ 250 mls/hr 12/25/23 20:15 12/25/23 20:36 Chloride IV 12/25/23 20:16 250 mls/hr ONCE ONE Administration Vancomycin HCl 1,000 mg/ 250 mls @ 125 mls/hr 12/25/23 20:30 12/25/23 21:37 Sodium Chloride IV 12/25/23 22:29 125 mls/hr ONCE ONE Administration Lactated Ringer's 1,000 mls @ 999 mls/hr 12/25/23 20:35 12/25/23 20:36 Lactated Ringer's 1000 Ml Bag IV 12/25/23 21:35 999 mls/hr .Q1H1M ONE Administration Lactated Ringer's 1,430 mls @ 715 mls/hr 12/25/23 20:56 12/25/23 22:15 Lactated Ringer's 1000 Ml Bag 30 ml/kg infuse over 2 hr (1430 ml) 12/25/23 22:55 715 mls/hr IV Administration .Q2H ONE Magnesium Sulfate 2 gm in 50 mls @ 50 mls/hr 12/26/23 05:39 12/26/23 07:51 Magnesium Sulfate 2gm/50ml Premix IV 12/26/23 06:38 Not Given ONCE ONE Lorazepam 0.5 mg 12/25/23 20:01 12/25/23 20:33 Lorazepam 2mg/Ml Vial IV 12/25/23 20:02 0.5 mg ONCE ONE Administration Lorazepam 0.25 mg 12/26/23 05:39 12/26/23 07:50 Lorazepam 2mg/Ml Vial IV 12/26/23 05:40 Not Given ONCE ONE Lorazepam 0.25 mg 12/26/23 05:40 12/26/23 07:51 Lorazepam 2mg/Ml Vial IV 12/26/23 05:41 Not Given ONCE ONE Methylprednisolone Sodium Succinate 125 mg 12/25/23 19:26 12/25/23 19:35 Methylprednisolone Sod Succ 125mg Vial IV 12/25/23 19:27 125 mg ONCE ONE Administration Miscellaneous 1 each 12/25/23 20:15 12/25/23 20:53 Vancomycin Consult Request NOTAPPLIC 01/24/24 20:14 1 each CONSULT PHARMACY KOJO Administration Sertraline HCl 100 mg 12/26/23 09:00 12/26/23 08:55 Sertraline 100mg Tablet PO 01/25/24 08:59 100 mg DAILY KOJO Administration Sodium Chloride 10 ml 12/25/23 20:01 Sodium Chloride 0.9% 10ml Vial IV 01/24/24 20:00 NEEDED PRN to Dilute Lorazepam inj Sodium Chloride 10 ml 12/26/23 05:39 Sodium Chloride 0.9% 10ml Vial IV 01/25/24 05:38 NEEDED PRN to Dilute Lorazepam inj ORDERS Category Date Time Status CXR --portable [XR chest portable] Stat Exams 12/25/23 19:26 Completed BNP [NT Pro Brain Natriuretic Pep.] Stat Lab 12/25/23 19:30 Completed BNP [NT Pro Brain Natriuretic Pep.] Stat Lab 12/25/23 19:30 Completed CRP [C-Reactive Protein] Stat Lab 12/25/23 19:30 Completed Complete Blood Count Auto Diff Stat Lab 12/25/23 19:30 Completed Comprehensive Metabolic Panel Stat Lab 12/25/23 19:30 Completed D-Dimer Stat Lab 12/25/23 19:30 Completed Full Resp Panel w/COVID ([facility]) Routine Lab 12/25/23 21:20 Ordered Lactic Acid Stat Lab 12/25/23 19:30 Completed MAG [Magnesium] Stat Lab 12/25/23 19:30 Completed Procalcitonin Stat Lab 12/25/23 19:30 Completed Procalcitonin Stat Lab 12/25/23 19:30 Completed Trop I [Troponin I] Stat Lab 12/25/23 19:30 Completed Troponin I Q3H Lab 12/25/23 22:30 Completed Troponin I Q3H Lab 12/26/23 01:30 Ordered Blood Culture Stat Micro 12/25/23 19:35 Received Sputum Culture & Gram Stain Stat Micro 12/25/23 20:15 Ordered VBG [Venous Blood Gas] Stat RT 12/25/23 19:26 Completed VBG [Venous Blood Gas] Stat RT 12/25/23 21:15 Completed ECG Data Tracing #1: Attestation: I reviewed this ECG and interpreted as documented below: ECG Narrative: Significant motion artifact which degrades study. Sinus tachycardia with a ventricular rate of 107 bpm. No obvious acute ST elevations concerning for ischemia. ECG initial impression date: 12/25/23 ECG initial impression time: 19:41 MDM Narrative Medical Decision Narrative: In summary, this patient is a 63-year-old female presenting to the Emergency Department for evaluation of 2 to 3 days of cough and shortness of breath. Differential diagnoses considered include but are not limited to COPD exacerbation, acute on chronic respiratory failure, pneumonia, viral syndrome, PE, malignancy, ACS, dysrhythmia. Ruling out the most morbid conditions drove assessment. It should be noted patient's history includes COPD with chronic respiratory failure which is not at goal therapy. This complicates all aspects of care by increasing patient's risk for morbidity. I reviewed patient's past medical records and noted previous evaluations by pulmonology in the past for other breathing issues. On exam, the patient is in acute respiratory distress with tachypnea, retractions, significantly diminished breath sounds. She is very cachectic and appears much older than stated age. workup included CBC, CMP, troponin, BNP, VBG, D-dimer, viral swab, chest x-ray, EKG. She was given DuoNebs x 3 as well as IV methylprednisolone. On close reassessment after administration of nebs, patient had increased breath sounds from prior diminished exam. She has diffuse inspiratory and expiratory wheezing with continued severe respiratory distress. She had what I suspect to be as V/Q mismatch after nebs, and she desaturated to the 80's. For her work of breathing, she was then placed on bipap and given continuous albuterol. She became very anxious, so she was given 0.25 mg of IV ativan to help calm her. I did have shared decision making with patient and family, telling her I was concerned she is very sick. She notes she is a full code and would want to be intubated if need be. She had improvement of work of breathing on BiPAP with continuous neb, and she remains alert and conversational. I independently interpreted XR prior to the radiologist read and noted concern for patchy pneumonia. Please see their read for final interpretation. Given how ill- appearing she is, she was started on vancomycin, cefepime, azithromycin and given a sepsis bolus. She was also given IV magnesium. Labs were obtained that demonstrated a surprisingly compensated respiratory acidosis, mild hypokalemia, hypomagnesemia. lactic and CBC normal, but she does have elevated CRP. Ultimately it was felt the patient had been stabilized on BiPAP and deemed to be appropriate for admission. I had an interactive discussion with the hospitalist who admitted the patient for continued monitoring of acute on chronic respiratory failure and pneumonia.
[2023-12-25] MEDS: IPRATROPIUM/ALBUTEROL 3 ML NEB 9 ML IH (19:32)
[2023-12-25] MEDS: METHYLPREDNISOLONE SOD SUCC 125MG VIAL 125 MG IV (19:35)
[2023-12-25 19:38] LABS: Lactate Venous 1.6 mmol/L (0.4-2.0); VBG Base Excess 4.1 mmol/L (-2.4-2.3); VBG HCO3 29.3 mmol/L (23-30); VBG Oxygen Saturation 84.3 % (50-70); VBG PH 7.38 mmol/L (7.31-7.41); VBG PO2 46.5 mmol/L (28-40); VBG Total CO2 30.9 mmol/L (23-27)
--- NOTE | 2023-12-25 19:40 | ECG_ITS ---
APPROVED REPORT Exam: Resting ECG HR:107 bpm ECG Measurements Heart Rate 107 AXES ID 147 P 85 QRSd 94 QRS 132 QT 337 T 77 QTc 400 Conclusion SINUS TACHYCARDIA RIGHT ATRIAL ENLARGEMENT [0.3mV P-WAVE] POSSIBLE LEFT ATRIAL ENLARGEMENT [-0.1mV P-WAVE IN V1/V2] MARKED ST ELEVATION, CONSIDER INFERIOR INJURY [MARKED ST ELEVATION W/O NORMALLY INFLECTED T-WAVE IN II/aVF] Significant gerardter, EKG nondiagnostic Electronically signed by : DAO CHANG, 12/28/2023 23:29:40
[2023-12-25 19:41] LABS: VBG PCO2 50.9 mmol/L (35-51)
--- NOTE | 2023-12-25 19:41 | PC.NURSE ---
critical VBG reuslts read to Michael. reported to Dr. Live
--- NOTE | 2023-12-25 19:44 | PC.NURSE ---
rad in room for chest x-ray
[2023-12-25 19:56] LABS: Basophils # 0.1 K/mm3 (0-0.2); Basophils % 1.3 % (0.1-2.0); Eosinophils % 0.4 % (0.1-12.0); Hematocrit 47.5 % (37.0-47.0); Hemoglobin 14.6 g/dL (12.2-16.2); Mean Corpuscular HGB Conc 30.7 g/dL (31.8-35.4); Mean Corpuscular Volume 107.5 fl (81-99); Monocytes # 0.6 K/mm3 (0.1-1.0); Monocytes % 6.4 % (1.7-9.3); Neutrophils # 7.9 K/mm3 (1.8-7.8); Neutrophils % 81.8 % (37.0-80.0); Platelet Count 298 K/mm3 (142-424); Red Blood Count 4.42 M/mm3 (4.20-5.40); Red Cell Distribution Width 13.1 % (11.5-17.5); White Blood Count 9.7 K/mm3 (4.8-10.8)
[2023-12-25 20:07] LABS: Alanine Aminotransferase 25 U/L (12-78); Albumin Level 4.1 g/dl (3.5-5.0); Albumin/Globulin Ratio 1.2 (1.1-1.8); Alkaline Phosphatase 85 U/L (38-126); Anion Gap 10.3 mEq/L (5-15); Aspartate Amino Transferase 40 U/L (14-36); Bilirubin,Total 0.3 mg/dl (0.2-1.3); Blood Urea Nitrogen 14 mg/dl (7-17); Calcium 10.3 mg/dl (8.4-10.2); Carbon Dioxide 31 mmol/L (22.0-30.0); Chloride 102 mmol/L (98-107); Creatinine Clearance Estimated 33 mL/min (50-200); Estimated Glomerular Filt Rate 100 ml/min (>60); GFR (African American) 121 ML/MIN (>60); Globulin 3.3 g/dL (1.3-3.2); Glucose 123 mg/dl (74-100); Potassium 3.3 mmoL/L (3.5-5.1); Sodium 140 mmol/L (136-145); Total Protein,Serum 7.4 g/dl (6.3-8.2)
[2023-12-25 20:12] LABS: C-Reactive Protein 85.7 mg/L (0-4)
[2023-12-25 20:13] LABS: D-Dimer 0.49 ug/mL (0.0-0.5)
[2023-12-25] MEDS: MAGNESIUM SULFATE IN WATER 2 GM/50 ML PIGGYBACK IV (20:17)
[2023-12-25 20:19] LABS: NT Pro Brain Natriuretic Pep. 186 pg/mL (0-125)
[2023-12-25 20:23] LABS: Lactic Acid 1.2 mmol/L (0.7-2.1); Magnesium 1.4 mg/dl (1.6-2.3); Procalcitonin 0.158 ng/mL (0.0-2.0)
[2023-12-25 20:30] LABS: Troponin I < 0.01 ng/ml (0.00-0.034)
[2023-12-25] MEDS: ALBUTEROL 0.083% 2.5 MG/3 ML NEB 20 MG IH (20:33)
[2023-12-25] MEDS: LORazepam 2MG/ML VIAL 0.5 MG IV (20:33)
[2023-12-25] MEDS: CEFEPIME HCL 2 GM in 0.9 % SODIUM CHLORIDE 100 ML IV (20:34)
[2023-12-25] MEDS: AZITHROMYCIN 500 MG in 0.9 % SODIUM CHLORIDE 250 ML 250 MG IV (20:36)
[2023-12-25] MEDS: LACTATED RINGERS 1000ML 1,000 ML 999 ML IV (20:36)
[2023-12-25] MEDS: VANCOMYCIN CONSULT REQUEST 1 EACH NOTAPPLIC (20:53)
[2023-12-25] MEDS: VANCOMYCIN HCL 1,000 MG in 0.9 % SODIUM CHLORIDE 250 ML 125 MG IV (21:37)
--- NOTE | 2023-12-25 21:39 | PC.NURSE ---
Attempted to give report, Nurse on second floor JIMBO Arteaga will call back.
--- NOTE | 2023-12-25 21:40 | P.HP_ITS ---
History of Present Illness *Admission Date: 12/25/23 *Reason for visit:: Acute respiratory failure *History of present illness: This is a 63-year-old very frail female with a past medical history of tobacco abuse, COPD, chronic respiratory failure on 3 L nasal cannula who presents to the emergency department in respiratory distress. Per ER providers report, she was very ill on arrival. States that she was not moving much air. She did undergo hour-long breathing treatment with improvement in air moving but did end up with hypoxia with oxygen saturations of 80% on 4 L requiring BiPAP. is at the bedside but is unable to provide much detailed history as he is hard of hearing and states that he does not deal with her day-to-day medical care. States that she is very stubborn and takes care of herself. He does state that she has had a rattly cough for several days. States that one of their grandkids had a viral illness this week. Further review of systems unable to be obtained. Patient is awake on BiPAP but appears somewhat tired. Will respond to questions but only endorses shortness of breath and cough Emergency department workup notable for compensated respiratory failure with a page of 7.38 and a pCO2 of 50. Elevated inflammatory markers with a CRP of 85. BNP of 186. Mag of 1.4. She is requiring BiPAP for maintenance of her respiratory drive. Per ED provider, she is now much improved than she was at baseline. Chest x-ray with groundglass opacities consistent with atypical pneumonia. She was covered with vancomycin, cefepime, azithromycin. Received hour-long DuoNeb, mag and Solu-Medrol and admitted to the hospitalist service. [facility] Disclaimer: The information contained in this section may have been updated after the patient was seen, as this information can be updated by other users. Medical History Tobacco abuse disorder Tobacco abuse counseling Multiple pulmonary nodules Smoking greater than 30 pack years Dyspnea on exertion Social History Smoking Status: Current every day smoker alcohol intake: never current occupational status: other Travel in the last 8 weeks: None Review of Systems Review of Systems Review of systems (narrative): Negative except for HPI Meds Home Medications and Allergies Home Medications ?Medication ?Instructions ?Recorded ?Confirmed ?Type atorvastatin 40 mg tablet 40 mg PO HS 03/09/21 12/26/23 History furosemide 40 mg tablet 40 mg PO BID 03/09/21 12/26/23 History lamotrigine 300 mg tablet,extended 300 mg PO DAILY 03/09/21 12/26/23 History release 24 hr mirtazapine 30 mg tablet 30 mg PO HS 03/09/21 12/26/23 History oxycodone-acetaminophen 7.5 mg-325 1 tab PO BID 03/09/21 12/26/23 History mg tablet potassium chloride 20 mEq 20 meq PO DAILY 03/09/21 12/26/23 History tablet,extended release(part/cryst) sertraline 100 mg tablet 200 mg PO DAILY 03/09/21 12/26/23 History spironolactone 50 mg tablet 50 mg PO BID 03/09/21 12/26/23 History trazodone 150 mg tablet 150 mg PO HS 03/09/21 12/26/23 History albuterol sulfate 90 mcg/actuation 1 inh inhalation BIDP PRN 12/26/23 12/26/23 History aerosol inhaler shortness of breath or wheezing alendronate 70 mg tablet 70 mg PO WEEKLY 12/26/23 12/26/23 History aspirin 81 mg tablet,delayed 81 mg PO DAILY 12/26/23 12/26/23 History release glycopyrrolate 9 mcg-formoterol 2 puff inhalation BID 12/26/23 12/26/23 History 4.8 mcg HFA aerosol inhaler ([employer]pi [employer]) New Prescriptions to Start Prescriptions: Allergies Allergy/AdvReac Type Severity Reaction Status Date / Time No Known Allergies Allergy Verified 10/05/21 10:03 Exam Data for Last 24 hours Vital signs and Labs for Last 24 Hours: Temp Pulse Resp BP Pulse Ox O2 Del Method O2 Flow Rate 98.4 F 116 H 20 150/89 H 94 L BiPAP 4 12/25/23 19:09 12/25/23 20:33 12/25/23 19:09 12/25/23 19:09 12/25/23 20:58 12/25/23 20:58 12/25/23 19:32 FiO2 40 12/25/23 20:58 Laboratory Results - last 24 hr 12/25/23 19:26: VBG pH 7.38, VBG pCO2 50.9, VBG pO2 46.5 H, VBG HCO3 29.3, VBG Total CO2 30.9 H, VBG O2 Saturation 84.3 H, VBG Base Excess 4.1 H, VBG Lactic Acid 1.6 12/25/23 19:30: WBC 9.7, RBC 4.42, Hgb 14.6, Hct 47.5 H, MCV 107.5 H, MCH 33.0 H , MCHC 30.7 L, RDW 13.1, Plt Count 298, MPV 8.0, Neut % (Auto) 81.8 H, Lymph % (Auto) 10.0, [place] % (Auto) 6.4, Eos % (Auto) 0.4, Baso % (Auto) 1.3, Neut # (Auto) 7.9 H, Lymph # (Auto) 1.0, [place] # (Auto) 0.6, Eos # (Auto) 0.0, Baso # (Auto) 0.1, D-Dimer 0.49, Sodium 140, Potassium 3.3 L, Chloride 102, Carbon Dioxide 31 H, Anion Gap 10.3, BUN 14, Creatinine 0.60, Estimated Creat Clear 33, Estimated GFR 100, Est GFR ( Amer) 121, Glucose 123 H, Lactate 1.2, Calcium 10.3 H, Magnesium 1.4 L, Total Bilirubin 0.3, AST 40 H, ALT 25, Alkaline Phosphatase 85, Troponin I < 0.01, C-Reactive Protein 85.7 H, NT-Pro-B Natriuret Pep 186 H, Total Protein 7.4, Albumin 4.1, Globulin 3.3 H, Albumin/Globulin Ratio 1.2, Procalcitonin 0.158 I & O for Last 24 hours: Intake & Output 12/22/23 12/23/23 12/24/23 12/25/23 23:59 23:59 23:59 23:59 Weight 37.648 kg Constitutional Constitutional: no acute distress *Routine HEENT Exam Head: Present normocephalic Eye: Present EOMI and PERRL ENT: Present mucous membranes moist *Routine Neck Exam Neck: Present supple; Absent lymphadenopathy *Routine Respiratory Exam Respiratory: Present prolonged expiratory phase, wheezes, crackles and able to speak in complete sentences *Routine Cardiovascular Exam Cardiovascular: Present RRR *Routine Abdominal Exam Abdominal: Present soft and normoactive bowel sounds; Absent tenderness *Routine Rectal Exam Rectal:: deferred *Routine Genitalia Exam Genitalia:: deferred *Routine Extremities Exam Extremities: Absent cyanosis, clubbing or edema *Routine Skin Exam Skin: Present warm; Absent rash *Routine Neurological Exam Neurological: Present alert and oriented X3 Assessment and Plan *Assessment and plan (1) Acute exacerbation of chronic obstructive pulmonary disease: Status: Acute Category: Medical Code(s): J44.1 - Chronic obstructive pulmonary disease with (acute) exacerbation (2) Pneumonia: Status: Acute Category: Medical Code(s): J18.9 - Pneumonia, unspecified organism (3) Acute on chronic respiratory failure with hypoxia and hypercapnia: Status: Acute Category: Medical Code(s): J96.21 - Acute and chronic respiratory failure with hypoxia; J96.22 - Acute and chronic respiratory failure with hypercapnia (4) Tobacco abuse disorder: Status: Chronic Category: Medical Code(s): Z72.0 - Tobacco use (5) Sepsis: Status: Acute Category: Medical Code(s): A41.9 - Sepsis, unspecified organism Plan #SEPSIS Meets Criteria for tachypnea and tachycardia Likely secondary to COPD exacerbation although pneumonia noted on chest x-ray Received 30ml/kg fluid administration Lactic acid negative Continue broad spectrum abx with azithromycin and Rocephin. Patient initially was given vancomycin and cefepime, will scale back to Rocephin and azithromycin. Procalcitonin pending Monitor inflammatory markers elevated #Acute respiratory failure with hypoxia and hypercapnia #COPD exacerbation Continue BiPAP for respiratory management at this time VBG shows compensated respiratory effort Does not have a history of following with a lung specialist. Will consult Dr. Scanlon this admission Continue bronchodilators Continue steroids 40 mg IV twice daily reports 60 pound weight loss over the course of the last 2 years. Does have known pulmonary nodules on imaging. #Tobacco use disorder Complicating respiratory system at this time Nicotine patch #Cachexia #Severe protein calorie malnutrition Has been reports approximately 60 pound weight loss over the last couple years Initiate high-protein diet with boost supplementation DVT PPx Lovenox, reduced dose given cachexia
[2023-12-25 21:42] LABS: NT Pro Brain Natriuretic Pep. 189 pg/mL (0-125)
[2023-12-25] MEDS: IPRATROPIUM/ALBUTEROL 3 ML NEB IH (22:05)
[2023-12-25] MEDS: LACTATED RINGERS 1000ML 1,430 ML 715 ML IV (22:15)
[2023-12-25] MEDS: METHYLPREDNISOLONE SOD SUCC 40MG VIAL 40 MG IV (22:15)
[2023-12-26] VITALS (27 sets, daily range): BP systolic 87–142; BP diastolic 54–93; PULSE 76–128; RESP 20–28; TEMP 36.6–37.6; O2SAT 91–100; BMI 15.6
[2023-12-26] MEDS: IPRATROPIUM/ALBUTEROL 3 ML NEB IH ×6 (01:35→22:41)
[2023-12-26 03:34] LABS: Troponin I < 0.01 ng/ml (0.00-0.034)
--- NOTE | 2023-12-26 04:00 | XR_ITS ---
PROCEDURE INFORMATION: Exam: XR Chest Exam date and time: 12/26/2023 4:18 AM Age: 63 years old Clinical indication: Shortness of breath; Additional info: Increased SOB TECHNIQUE: Imaging protocol: Radiologic exam of the chest. Views: 1 view. COMPARISON: No relevant prior studies available. FINDINGS: Lungs: Chronic interstitial changes and hyperinflation. No focal infiltrates identified. Pleural spaces: Unremarkable. No pleural effusion. No pneumothorax. Heart/Mediastinum: Unremarkable. No cardiomegaly. Bones/joints: Unremarkable. IMPRESSION: No acute process noted. Underlying COPD.
[2023-12-26 04:23] LABS: Procalcitonin 0.178 ng/mL (0.0-2.0)
--- NOTE | 2023-12-26 05:12 | EXP.EVENT.NO ---
Let this note serve as an update since admission given EHR downtime. At the time of admission patient had worsening ABG result from admission. Patient initially had stable pH with CO2 of 50. Upon admission she was noted to have a CO2 of 90 with a pH of 7.12. Adjustments made on BiPAP with improvement of ABG with reduction of CO2 to 70 and then 65. Pt did have episode this am of severe anxiety causing distress with self removal of Bipap. She was able to be calmed with IV ativan and placed back on Bipap with imrpovement in respiratory effort. Have spoken at length with the and the sister. Sister seems to have a firm grasp on the significance of her respiratory illness and COPD but has been having a difficult time with education and understanding from the . He has asked many questions regarding how long the BiPAP will be on, if she is going to be on it forever and what the prognosis is. I did speak with him at length about her work of breathing and her ability to her carbon oxide at a reasonable level. I was at the bedside most of the evening addressing questions and reassuring family that her numbers were improving and that we will be speaking with pulmonology this morning about further recommendations. I have addressed questions and answered them as best as I can to help the family understand course of treatment. They have decided for the patient to be DNR but are still speaking whether she would want ventilator. Sister does state that the patient is terrified to feel like she cannot breathe and would likely agree to anything in the moment if she was in distress. Currently at this time this morning she is resting on BiPAP with improvement in respiratory effort. Awaiting morning ABG.
--- NOTE | 2023-12-26 05:53 | PC.NURSE ---
Event at 0400: Patient awoke in distress and began pulling her BiPAP mask off stating she couldn't breathe. STUNNER ANIMAL and DIRECTOR ADVANCED to bedside with documenting RN. Patient placed on 3L/NC. Breathing tx started by DIRECTOR ADVANCED. Verbal roders for 0.25mg IVP Ativan q5 PRN x2 doses, 2g Magnesium IV over 1 hour, STAT CXR. Interventions completed and patient began to rest for comfortably by 0430 and by 0500 patient back asleep with her BiPAP on and tolerating well.
--- NOTE | 2023-12-26 06:04 | PC.NURSE ---
End of shift summary: After admission patient's spouse and GLASS VIAL FILLER has had several conversations at bedside regarding the plan of care of his spouse. At current time, GLASS VIAL FILLER is at bedside speaking to spouse and family. Patient had an episode of anxiety and began removing her BiPAP-- see previous event note and verbal orders carried out. Patient has been resting comfortably since that event. She remains on the BiPAP 18/8, RR 26, FiO2 35%.
[2023-12-26] MEDS: METHYLPREDNISOLONE SOD SUCC 40MG VIAL 40 MG IV ×3 (06:15→22:29)
[2023-12-26 06:32] LABS: Allen's Test ACCEPTABLE; Oxygen 40% %; Source L RADIAL; Tidal Volume 18/8
[2023-12-26 06:33] LABS: ABG PCO2 62.6 mmhg (35.0-45.0); ABG PH 7.28 mmol/L (7.35-7.45); ABG PO2 117.8 mmhg (80-100)
[2023-12-26 06:34] LABS: ABG Base Excess 2.2 mmol/L (-2.4-2.3); ABG HCO3 28.9 mmhg (22.0-26.0); ABG Oxygen Saturation 98 % (90-100); ABG TCO2 30.8 mmhg (23-27)
[2023-12-26 07:02] LABS: VBG PH 7.12 mmol/L (7.31-7.41)
[2023-12-26 07:03] LABS: Lactate Venous 1.5 mmol/L (0.4-2.0); VBG Base Excess -0.8 mmol/L (-2.4-2.3); VBG HCO3 28.6 mmol/L (23-30); VBG Oxygen Saturation 96.5 % (50-70); VBG PCO2 90.2 mmol/L (35-51); VBG PO2 106.9 mmol/L (28-40); VBG Total CO2 31.4 mmol/L (23-27)
[2023-12-26 07:08] LABS: ABG PCO2 75.5 mmhg (35.0-45.0); ABG PH 7.17 mmol/L (7.35-7.45)
[2023-12-26 07:09] LABS: ABG Base Excess -1.5 mmol/L (-2.4-2.3); ABG Oxygen Saturation 98 % (90-100); ABG PO2 121.9 mmhg (80-100); ABG TCO2 29.3 mmhg (23-27)
[2023-12-26 07:10] LABS: Oxygen 40 %
[2023-12-26 07:11] LABS: Allen's Test ACCEPTABLE; Source L RADIAL; Tidal Volume 18/8; Vent Rate 24
[2023-12-26 07:15] LABS: Lactate Venous 1.4 mmol/L (0.4-2.0); VBG Base Excess 0.5 mmol/L (-2.4-2.3); VBG HCO3 27.9 mmol/L (23-30); VBG PH 7.24 mmol/L (7.31-7.41); VBG PO2 46.8 mmol/L (28-40)
[2023-12-26] MEDS: FUROSEMIDE 40 MG TABLET PO (08:55)
[2023-12-26] MEDS: CEFTRIAXONE SODIUM 1 GM in 0.9 % SODIUM CHLORIDE 50 ML IV (08:55)
[2023-12-26] MEDS: SERTRALINE 100MG TABLET 100 MG PO (08:55)
[2023-12-26] MEDS: ENOXAPARIN 30MG/0.3ML SYRINGE 30 MG SQ (08:55)
--- NOTE | 2023-12-26 09:33 | P.CONS_ITS ---
History of Present Illness History of present illness: Ms. Mccrary is a 63-year-old female current smoker greater than [id number] smoking history last seen in pulmonary clinic in October 2021, very severe COPD FEV1 at 26% predicted with significant reversibility, multiple pulmonary nodules presented to ER with worsening respiratory distress admitted for COPD exacerbation hypercarbic respiratory failure needing noninvasive ventilator therapy and pulmonary was called for further evaluation and management. [facility] Disclaimer: The information contained in this section may have been updated after the patient was seen, as this information can be updated by other users. Medical History Tobacco abuse disorder Tobacco abuse counseling Multiple pulmonary nodules Smoking greater than 30 pack years Dyspnea on exertion Social History Smoking Status: Current every day smoker alcohol intake: never current occupational status: other Travel in the last 8 weeks: None Review of Systems Review of Systems Review of systems:: unable to obtain Review of systems (narrative): Patient obtunded only responding to painful stimuli Pulmonology Exam Inpatient Vital signs and Labs for Last 24 Hours: Temp Pulse Resp BP Pulse Ox O2 Del Method O2 Flow Rate 99.7 F H 104 H 24 100/65 L 98 Room Air 3 12/26/23 08:00 12/26/23 08:00 12/26/23 08:00 12/26/23 08:00 12/26/23 08:00 12/26/23 08:09 12/26/23 04:00 FiO2 40 12/26/23 06:22 Laboratory Results - last 24 hr 12/25/23 19:26: VBG pH 7.38, VBG pCO2 50.9, VBG pO2 46.5 H, VBG HCO3 29.3, VBG Total CO2 30.9 H, VBG O2 Saturation 84.3 H, VBG Base Excess 4.1 H, VBG Lactic Acid 1.6 12/25/23 19:30: WBC 9.7, RBC 4.42, Hgb 14.6, Hct 47.5 H, MCV 107.5 H, MCH 33.0 H , MCHC 30.7 L, RDW 13.1, Plt Count 298, MPV 8.0, Neut % (Auto) 81.8 H, Lymph % (Auto) 10.0, [place] % (Auto) 6.4, Eos % (Auto) 0.4, Baso % (Auto) 1.3, Neut # (Auto) 7.9 H, Lymph # (Auto) 1.0, [place] # (Auto) 0.6, Eos # (Auto) 0.0, Baso # (Auto) 0.1, D-Dimer 0.49, Sodium 140, Potassium 3.3 L, Chloride 102, Carbon Dioxide 31 H, Anion Gap 10.3, BUN 14, Creatinine 0.60, Estimated Creat Clear 33, Estimated GFR 100, Est GFR ( Amer) 121, Glucose 123 H, Lactate 1.2, C alcium 10.3 H, Magnesium 1.4 L, Total Bilirubin 0.3, AST 40 H, ALT 25, Alkaline Phosphatase 85, Troponin I < 0.01, C-Reactive Protein 85.7 H, NT-Pro-B Natriuret Pep 186 H 12/25/23 19:30: NT-Pro-B Natriuret Pep 189 H, Total Protein 7.4, Albumin 4.1, G lobulin 3.3 H, Albumin/Globulin Ratio 1.2, Procalcitonin 0.158 12/25/23 19:30: Procalcitonin 0.178 12/25/23 21:15: VBG pH 7.12 L, VBG pCO2 90.2 H, VBG pO2 106.9 H, VBG HCO3 28.6, VBG Total CO2 31.4 H, VBG O2 Saturation 96.5 H, VBG Base Excess -0.8, VBG Lactic Acid 1.5 12/25/23 22:30: Troponin I < 0.01 12/25/23 23:00: Specimen Source L radial, O2 % 40, ABG pH 7.17 L*, ABG pCO2 75.5 H, ABG pO2 121.9 H, ABG HCO3 27.0 H, ABG Total CO2 29.3 H, ABG O2 Saturation 98, ABG Base Excess -1.5, Anshu Test Acceptable, Vent Rate 24, Tidal Volume 18/8 12/26/23 01:00: VBG pH 7.24 L, VBG pCO2 67.0 H, VBG pO2 46.8 H, VBG HCO3 27.9, V BG Total CO2 30.0 H, VBG O2 Saturation 82.0 H, VBG Base Excess 0.5, VBG Lactic Acid 1.4 12/26/23 06:27: Specimen Source L radial, O2 % 40%, ABG pH 7.28 L, ABG pCO2 62.6 H, ABG pO2 117.8 H, ABG HCO3 28.9 H, ABG Total CO2 30.8 H, ABG O2 Saturation 98, ABG Base Excess 2.2, Anshu Test Acceptable, Tidal Volume 18/8 I & O for Labs for Last 24 Hours: Intake & Output 12/23/23 12/24/23 12/25/23 12/26/23 23:59 23:59 23:59 23:59 Intake Total 3080 / 3080 Output Total 200 / 200 Balance 2880 / 2880 Weight 83 lb 82 lb 15.994 oz Constitutional: Present severe distress Head: Present normocephalic and atraumatic ENT: Present normal exam, normal oropharynx and mucous membranes moist Neck: Present normal inspection and full ROM Respiratory: Present respiratory distress, wheezes and diminished air movement; Absent able to speak in complete sentences Cardiac: Present S1/S2, Tachycardia and radial pulses present GI: Present soft and distention; Absent tenderness or guarding Rectal (female): Present deferred (female): Present deferred Skin: Present intact; Absent cyanosis or jaundice Neuro: Absent alert, awake or oriented x 3 Extremities: Present normal inspection; Absent clubbing or cyanosis Meds Home Medications and Allergies Home Medications ?Medication ?Instructions ?Recorded ?Confirmed ?Type atorvastatin 40 mg tablet 40 mg PO HS 03/09/21 12/26/23 History furosemide 40 mg tablet 40 mg PO BID 03/09/21 12/26/23 History lamotrigine 300 mg tablet,extended 300 mg PO DAILY 03/09/21 12/26/23 History release 24 hr mirtazapine 30 mg tablet 30 mg PO HS 03/09/21 12/26/23 History oxycodone-acetaminophen 7.5 mg-325 1 tab PO BID 03/09/21 12/26/23 History mg tablet potassium chloride 20 mEq 20 meq PO DAILY 03/09/21 12/26/23 History tablet,extended release(part/cryst) sertraline 100 mg tablet 200 mg PO DAILY 03/09/21 12/26/23 History spironolactone 50 mg tablet 50 mg PO BID 03/09/21 12/26/23 History trazodone 150 mg tablet 150 mg PO HS 03/09/21 12/26/23 History albuterol sulfate 90 mcg/actuation 1 inh inhalation BIDP PRN 12/26/23 12/26/23 History aerosol inhaler shortness of breath or wheezing alendronate 70 mg tablet 70 mg PO WEEKLY 12/26/23 12/26/23 History aspirin 81 mg tablet,delayed 81 mg PO DAILY 12/26/23 12/26/23 History release glycopyrrolate 9 mcg-formoterol 2 puff inhalation BID 12/26/23 12/26/23 History 4.8 mcg HFA aerosol inhaler ([employer]) New Prescriptions to Start Prescriptions: Allergies Allergy/AdvReac Type Severity Reaction Status Date / Time No Known Allergies Allergy Verified 10/05/21 10:03 Results Laboratory Findings 12/25/23 19:30 12/25/23 19:30 ABG ABG pH 7.28 mmol/L (7.35-7.45) L 12/26/23 06:27 ABG pCO2 62.6 mmhg (35.0-45.0) H 12/26/23 06:27 ABG pO2 117.8 mmhg (80-100) H 12/26/23 06:27 ABG O2 Saturation 98 % (90-100) 12/26/23 06:27 PT/INR, D-dimer D-Dimer 0.49 ug/mL (0.0-0.5) 12/25/23 19:30 Abnormal lab findings: Abnormal Labs 12/25/23 12/25/23 12/25/23 19:26 19:30 19:30 Hct 47.5 H MCV 107.5 H MCH 33.0 H MCHC 30.7 L Neut % (Auto) 81.8 H Neut # (Auto) 7.9 H ABG pH ABG pCO2 ABG pO2 ABG HCO3 ABG Total CO2 VBG pH VBG pCO2 VBG pO2 46.5 H VBG Total CO2 30.9 H VBG O2 Saturation 84.3 H VBG Base Excess 4.1 H Potassium 3.3 L Carbon Dioxide 31 H Glucose 123 H Calcium 10.3 H Magnesium 1.4 L AST 40 H C-Reactive Protein 85.7 H NT-Pro-B Natriuret Pep 186 H 189 H Globulin 3.3 H 12/25/23 12/25/23 12/26/23 21:15 23:00 01:00 Hct MCV MCH MCHC Neut % (Auto) Neut # (Auto) ABG pH 7.17 L* ABG pCO2 75.5 H ABG pO2 121.9 H ABG HCO3 27.0 H ABG Total CO2 29.3 H VBG pH 7.12 L 7.24 L VBG pCO2 90.2 H 67.0 H VBG pO2 106.9 H 46.8 H VBG Total CO2 31.4 H 30.0 H VBG O2 Saturation 96.5 H 82.0 H VBG Base Excess Potassium Carbon Dioxide Glucose Calcium Magnesium AST C-Reactive Protein NT-Pro-B Natriuret Pep Globulin 12/26/23 06:27 Hct MCV MCH MCHC Neut % (Auto) Neut # (Auto) ABG pH 7.28 L ABG pCO2 62.6 H ABG pO2 117.8 H ABG HCO3 28.9 H ABG Total CO2 30.8 H VBG pH VBG pCO2 VBG pO2 VBG Total CO2 VBG O2 Saturation VBG Base Excess Potassium Carbon Dioxide Glucose Calcium Magnesium AST C-Reactive Protein NT-Pro-B Natriuret Pep Globulin Assessment and Plan *Assessment and plan (1) Acute exacerbation of chronic obstructive pulmonary disease: Status: Acute Category: Medical Code(s): J44.1 - Chronic obstructive pulmonary disease with (acute) exacerbation (2) Sepsis: Status: Acute Category: Medical Code(s): A41.9 - Sepsis, unspecified organism (3) Acute on chronic respiratory failure with hypoxia and hypercapnia: Status: Acute Category: Medical Code(s): J96.21 - Acute and chronic respiratory failure with hypoxia; J96.22 - Acute and chronic respiratory failure with hypercapnia (4) Pneumonia: Status: Acute Category: Medical Code(s): J18.9 - Pneumonia, unspecified organism Plan Ms. Mccrary is a 63-year-old female current smoker greater than [id number] smoking history last seen in pulmonary clinic in October 2021, very severe COPD FEV1 at 26% predicted with significant reversibility, multiple pulmonary nodules presented to ER with worsening respiratory distress admitted for COPD exacerbation hypercarbic respiratory failure needing noninvasive ventilator therapy and pulmonary was called for further evaluation and management. Patient also due for 9-month follow-up CT chest on her last clinic visit, lost to follow-up. Labs on admission reviewed, no evidence of significant leukocytosis. Hypercarbic respiratory failure with a pH of 7.17 with a pCO2 of 75.5. Slightly improved from this morning at a pH of 7.27 with a pCO2 of 62.6. Chest x-ray from this morning no acute airspace disease/consolidation is noted. Hyperinflated lungs noted. No acute change compared to chest x-ray from admission. Currently receiving nebulization therapies azithromycin and methylprednisolone. On examination patient obtunded responding to painful stimuli. As per the family, patient continued to smoke. Using inhalers. Do not have access to nebulization therapies. Continued worsening respiratory status for the last 3 to 4 weeks progressively getting worse. Plan: Continue current BiPAP therapy, on 12/22 with a rate of 22 and FiO2 of 30%. Will follow with VBG in 1 hour. Continue ceftriaxone azithromycin pending culture results. DuoNebs every 4 hours along with Pulmicort Q12 scheduled. Continue methylprednisolone 40 every 8 hours Respiratory viral PCR panel Echocardiogram. # Thank you for involving pulmonary in this patient care. Will continue to follow.
--- NOTE | 2023-12-26 10:08 | HMH.PHAINT1 ---
Pharmacy Intervention Comments: home medication list verifed using list from outpatient pharmacy due to lack of pts ability to recall
[2023-12-26] MEDS: SODIUM CHLORIDE 3% 15ML NEB 3 ML IH (11:19)
--- NOTE | 2023-12-26 11:20 | CA_ITS ---
APPROVED REPORT EXAM: Comprehensive 2D, Doppler, and color-flow Echocardiogram [employer]: Karol Gardner CRT Ht: 5 ft 1 in Wt: 82lbs BSA: 1.29 BP: 100/65 mmHg Indications: COPD, Shortness of Breath, smoker, home o2, pt on bipap TDE due to body habitus. Limited windows, pt up in bed 2D Dimensions Left Atrium 2.24 cm LA Volume 9.70 mL LVOT 1.85 cm (M/F) 1.5-2.5 LA Volume Index 7.50 mL/m2 (M/F) 16-34 EF AP4 65.00 % GL Strain -20.4 % M-Mode Dimensions RVDd 2.12 cm (0.9-2.6) LVDd 2.75 cm (3.5-5.7) Ao Diam 3.76 cm (2.0-3.7) LVDs 2.00 cm (3.5-5.7) IVSd 1.16 cm (0.6-1.1) PWd 1.01 cm (0.6-1.1) EF (Teich) 55.10% FS 27.30% EDV (Teich) 28.30 mL TAPSE 0.99 (<1.7) ESV (Teich) 12.70 mL LV Diastology E Decel Time 92 (160-240 msec) E/A Ratio 0.96 MED E' 4.7 (>= 7 cm/sec) MED A' 8.10 cm/s E'/MED E' Ratio 13.21 (<= 14) LAT E' 5.2 (>= 10 cm/sec) LAT A' 10.20 cm/s E/LAT E' Ratio 11.94 (<= 14) Aortic Valve AoV Peak Ryan. 121.0 (50-130 cm/s) AO Peak GR. 5.90 mmHg Mitral Valve MV E Max Ryan. 62.0 (40-130 cm/s) MV A Velocity 65.0 (40-130 cm/s) E/A Ratio 0.96 MV Decel. Time 92 (160-240 ms) Tricuspid Valve TR P. Velocity 200.00 cm/s RAP Estimate 10.00 mmHg RVSP 26.00 mmHg Left Ventricle The left ventricle is normal size. The left ventricular systolic function is normal. The left ventricular ejection fraction is within the normal range. There is increaed LV wall thickness. There is normal LV segmental wall motion. Transmitral Doppler flow pattern suggests impaired LV relaxation. LVEF is 55%. Right Ventricle Right ventricle is moderately dilated. Right ventricle is mildly to moderately hypokinetic. Atria Left atrium is mildly dilated. Right atrium is mildly dilated. There is no Doppler evidence of interatrial shunt. Aortic Valve The aortic valve is mildly thickened. There is no aortic valvular stenosis. Trace aortic regurgitation. Mitral Valve The mitral valve is normal in structure. No evidence of mitral valve stenosis. Trace mitral regurgitation. Tricuspid Valve The tricuspid valve leaflets are thin and pliable. Trace tricuspid regurgitation. There is insufficient TR jet to estimate RVSP. Pulmonic Valve The pulmonary valve is normal in structure. Trace pulmonic regurgitation. Great Vessels The aortic root is normal in size. The ascending aorta is normal in size. IVC is normal in size and collapses >50% with inspiration. Pericardium Small, anterior pericardial effusion. Largest pocket measures 0.5 cm in diastole. No echo indications of tamponade. Other Information Study Quality: Fair Conclusion Normal LV systolic function. Moderate RV dilation with mild to moderate reduction in RV function. Mild biatrial dilation. No significant valvular stenosis or regurgitation. Small, anterior pericardial effusion. Largest pocket measures 0.5 cm in diastole. No echo indications of tamponade. Electronically signed by : Lisa Alvarenga MD 12/27/2023 16:23:12
[2023-12-26 11:43] LABS: Lactate Venous 1.2 mmol/L (0.4-2.0); VBG Base Excess 3.6 mmol/L (-2.4-2.3); VBG HCO3 29.2 mmol/L (23-30); VBG Oxygen Saturation 99.1 % (50-70); VBG PH 7.35 mmol/L (7.31-7.41); VBG PO2 158.5 mmol/L (28-40); VBG Total CO2 30.8 mmol/L (23-27)
[2023-12-26 11:44] LABS: VBG PCO2 53.6 mmol/L (35-51)
[2023-12-26 14:39] LABS: Troponin I 0.04 ng/ml (0.00-0.034)
--- NOTE | 2023-12-26 15:58 | PC.NURSE ---
PT IS RESTING IN BED WITH FAMILY AT BEDSIDE. ALERT AND ORIENTED X3. PT HAS ONLY BEEN ABLE TO TOLERATE BIPAP BEING REMOVED FOR ORAL CARE AND A FEW SIPS OF WATER. PT DESATS WITHIN SECONDS AND BECOMES VERY ANXIOUS. LUNG SOUNDS DIMINISHED WITH SCATTERED RHONCHI. ABDOMEN SOFT/NON TENDER WITH ACTIVE BOWEL SOUNDS. TURNED AND REPOSITIONED IN BED. WILL CONTINUE TO MONITOR.
[2023-12-26 18:19] LABS: Adenovirus,PCR Not Detected (NotDetected); Bordetella Pertussis Not Detected (NotDetected); Chlamydophila Pneumoniae, PCR Not Detected (NotDetected); Coronavirus 19, PCR Not Detected (NotDetected); Coronavirus 229E Not Detected (NotDetected); Coronavirus NL63 Not Detected (NotDetected); Coronavirus OC43 Not Detected (NotDetected); Coronovirus HKU1,PCR Not Detected (NotDetected); Human Metapneumovirus Not Detected (NotDetected); Influenza A, PCR Not Detected (NotDetected); Influenza AH1, 2009 Not Detected (NotDetected); Influenza AH1, PCR Not Detected (NotDetected); Influenza AH3,PCR Not Detected (NotDetected); Influenza B, PCR Not Detected (NotDetected); Mycoplasma Pneumoniae, PCR Not Detected (NotDetected); Parainfluenza 1, PCR Not Detected (NotDetected); Parainfluenza 2, PCR Not Detected (NotDetected); Parainfluenza 3, PCR Not Detected (NotDetected); Respiratory Syncytial Virus Not Detected (NotDetected); Rhinovirus/Enterovirus Not Detected (NotDetected)
[2023-12-26] MEDS: BUDESONIDE 0.5MG/2ML NEB 0.5 MG IH (18:37)
--- NOTE | 2023-12-26 18:39 | P.PN_ITS ---
Subjective *Date: 12/26/23 *Time: 18:39 Interval history: Patient still on BiPAP. Spoke with patient, patient's and family today at bedside. No fevers or chills overnight. Medical Exam Vital signs and Labs for Last 24 Hours: Vital Signs Temp Pulse Pulse Resp BP BP Pulse Ox 12/26/23 17:55 12/26/23 17:00 12/26/23 16:00 98 F 12/26/23 16:00 12/26/23 16:00 80 12/26/23 16:00 78 24 98/61 L 98 12/26/23 15:00 12/26/23 14:00 12/26/23 14:00 95 H 26 H 97/66 L 97 12/26/23 13:49 85 12/26/23 13:49 87 12/26/23 13:00 12/26/23 12:00 100 H 12/26/23 12:00 103 H 24 113/71 98 12/26/23 12:00 98.4 F 12/26/23 11:19 80 22 12/26/23 11:19 84 12/26/23 11:19 84 12/26/23 11:19 12/26/23 10:57 12/26/23 10:00 12/26/23 10:00 91 H 24 87/60 L 98 12/26/23 09:30 12/26/23 08:09 12/26/23 08:00 110 H 12/26/23 08:00 12/26/23 08:00 99.7 F H 104 H 24 100/65 L 98 12/26/23 06:22 79 12/26/23 06:22 80 12/26/23 06:22 12/26/23 06:00 106 H 23 108/73 L 98 12/26/23 05:10 112 H 23 111/80 99 12/26/23 04:09 128 H 26 H 141/93 H 97 12/26/23 04:05 116 H 12/26/23 04:05 120 H 12/26/23 04:00 98 F 116 H 21 135/78 93 L 12/26/23 04:00 99.7 F H 12/26/23 04:00 114 H 12/26/23 03:56 112 H 26 H 130/84 96 12/26/23 03:54 114 H 20 142/83 H 96 12/26/23 02:00 102 H 20 91/62 L 95 12/26/23 01:35 100 H 12/26/23 01:35 103 H 12/26/23 01:35 12/26/23 00:00 98 H 22 113/54 L 96 12/26/23 00:00 105 H 12/25/23 23:15 12/25/23 23:00 105 H 22 141/71 H 99 12/25/23 22:21 115 H 12/25/23 22:05 116 H 12/25/23 22:05 120 H 12/25/23 22:00 12/25/23 21:47 98.8 F 80 20 142/82 H 12/25/23 20:58 94 L 12/25/23 20:33 116 H 12/25/23 20:10 12/25/23 20:05 129 H 12/25/23 19:32 96 H 12/25/23 19:32 92 L 12/25/23 19:09 98.4 F 104 H 20 150/89 H 94 L O2 Del Method O2 Flow Rate FiO2 12/26/23 17:55 30 12/26/23 17:00 BiPAP 12/26/23 16:00 12/26/23 16:00 BiPAP 12/26/23 16:00 12/26/23 16:00 BiPAP 30 12/26/23 15:00 BiPAP 12/26/23 14:00 30 12/26/23 14:00 BiPAP 30 12/26/23 13:49 12/26/23 13:49 12/26/23 13:00 BiPAP 12/26/23 12:00 12/26/23 12:00 BiPAP 12/26/23 12:00 12/26/23 11:19 12/26/23 11:19 12/26/23 11:19 12/26/23 11:19 30 12/26/23 10:57 BiPAP 30 12/26/23 10:00 30 12/26/23 10:00 BiPAP 12/26/23 09:30 30 12/26/23 08:09 Room Air 12/26/23 08:00 12/26/23 08:00 BiPAP 12/26/23 08:00 BiPAP 12/26/23 06:22 12/26/23 06:22 12/26/23 06:22 40 12/26/23 06:00 BiPAP 12/26/23 05:10 BiPAP 12/26/23 04:09 BiPAP 12/26/23 04:05 12/26/23 04:05 12/26/23 04:00 Nasal Cannula 3 12/26/23 04:00 12/26/23 04:00 12/26/23 03:56 BiPAP 12/26/23 03:54 BiPAP 12/26/23 02:00 BiPAP 12/26/23 01:35 12/26/23 01:35 12/26/23 01:35 40 12/26/23 00:00 BiPAP 12/26/23 00:00 12/25/23 23:15 35 12/25/23 23:00 BiPAP 12/25/23 22:21 12/25/23 22:05 12/25/23 22:05 12/25/23 22:00 40 12/25/23 21:47 BiPAP 12/25/23 20:58 BiPAP 40 12/25/23 20:33 12/25/23 20:10 40 12/25/23 20:05 12/25/23 19:32 12/25/23 19:32 Nasal Cannula 4 12/25/23 19:09 Nasal Cannula 4 Intake and Output 12/26/23 12/26/23 12/26/23 07:59 15:59 23:59 Intake Total 3080 / 3130 50 / 3130 Output Total 200 / 200 0 / 200 Balance 2880 / 2930 50 / 2930 0 / 2930 Intake: Intake, Oral Amount 0 / 0 Intake, Total IV Amount 3080 / 3130 50 / 3130 Azithromycin 500 mg In 0.9 % 250 / 250 Sodium Chloride 250 ml @ 250 mls/hr IV ONCE ONE Rx#:[id number] Cefepime HCl 2 gm In 0.9 % 100 / 100 Sodium Chloride 100 ml @ 200 mls/hr IV ONCE ONE Rx#:[id number] Ceftriaxone Sodium 1 gm In 0.9 50 / 50 % Sodium Chloride 50 ml @ 100 mls/hr IV 0900 KOJO Rx#:[id number] Lactated Ringers 1000ML 1,000 1000 / 1000 ml @ 999 mls/hr IV .Q1H1M ONE Rx#:[id number] Lactated Ringers 1000ML 1,430 1430 / 1430 ml @ 715 mls/hr IV .Q2H ONE Rx# :[id number] Magnesium Sulfate in Water 2 gm 50 / 50 In 50 ml @ 50 mls/hr IV ONCE ONE Rx#:[id number] Vancomycin HCl 1,000 mg In 0.9 250 / 250 % Sodium Chloride 250 ml @ 125 mls/hr IV ONCE ONE Rx#:[id number] Output: Output, Urine Amount 200 / 200 0 / 200 Other: Number of Unmeasured Voids 1 Weight 37.648 kg 37.64 kg Patient Weight 12/26/23 23:59 Weight 37.64 kg Laboratory Results - last 24 hr 12/25/23 19:26: VBG pH 7.38, VBG pCO2 50.9, VBG pO2 46.5 H, VBG HCO3 29.3, VBG Total CO2 30.9 H, VBG O2 Saturation 84.3 H, VBG Base Excess 4.1 H, VBG Lactic Acid 1.6 12/25/23 19:30: WBC 9.7, RBC 4.42, Hgb 14.6, Hct 47.5 H, MCV 107.5 H, MCH 33.0 H , MCHC 30.7 L, RDW 13.1, Plt Count 298, MPV 8.0, Neut % (Auto) 81.8 H, Lymph % (Auto) 10.0, [place] % (Auto) 6.4, Eos % (Auto) 0.4, Baso % (Auto) 1.3, Neut # (Auto) 7.9 H, Lymph # (Auto) 1.0, [place] # (Auto) 0.6, Eos # (Auto) 0.0, Baso # (Auto) 0.1, D-Dimer 0.49, Sodium 140, Potassium 3.3 L, Chloride 102, Carbon Dioxide 31 H, Anion Gap 10.3, BUN 14, Creatinine 0.60, Estimated Creat Clear 33, Estimated GFR 100, Est GFR ( Amer) 121, Glucose 123 H, Lactate 1.2, Calcium 10.3 H, Magnesium 1.4 L, Total Bilirubin 0.3, AST 40 H, ALT 25, Alkaline Phosphatase 85, Troponin I < 0.01, C-Reactive Protein 85.7 H, NT-Pro-B Natriuret Pep 186 H 12/25/23 19:30: NT-Pro-B Natriuret Pep 189 H, Total Protein 7.4, Albumin 4.1, Globulin 3.3 H, Albumin/Globulin Ratio 1.2, Procalcitonin 0.158 12/25/23 19:30: Procalcitonin 0.178 12/25/23 21:15: VBG pH 7.12 L, VBG pCO2 90.2 H, VBG pO2 106.9 H, VBG HCO3 28.6, VBG Total CO2 31.4 H, VBG O2 Saturation 96.5 H, VBG Base Excess -0.8, VBG Lactic Acid 1.5 12/25/23 22:30: Troponin I < 0.01 12/25/23 23:00: Specimen Source L radial, O2 % 40, ABG pH 7.17 L*, ABG pCO2 75.5 H, ABG pO2 121.9 H, ABG HCO3 27.0 H, ABG Total CO2 29.3 H, ABG O2 Saturation 98, ABG Base Excess -1.5, Anshu Test Acceptable, Vent Rate 24, Tidal Volume 22/1212/26/23 01:00: VBG pH 7.24 L, VBG pCO2 67.0 H, VBG pO2 46.8 H, VBG HCO3 27.9, VBG Total CO2 30.0 H, VBG O2 Saturation 82.0 H, VBG Base Excess 0.5, VBG Lactic Acid 1.4 12/26/23 06:27: Specimen Source L radial, O2 % 40%, ABG pH 7.28 L, ABG pCO2 62.6 H, ABG pO2 117.8 H, ABG HCO3 28.9 H, ABG Total CO2 30.8 H, ABG O2 Saturation 98, ABG Base Excess 2.2, Anshu Test Acceptable, Tidal Volume 1812/26/23 11:30: VBG pH 7.35, VBG pCO2 53.6 H, VBG pO2 158.5 H, VBG HCO3 29.2, VBG Total CO2 30.8 H, VBG O2 Saturation 99.1 H, VBG Base Excess 3.6 H, VBG Lactic Acid 1.2 12/26/23 11:36: Troponin I 0.04 H I & O for Labs for Last 24 Hours: Intake & Output 08/18/24 08/19/24 08/20/24 08/21/24 23:59 23:59 23:59 23:59 Intake Total 3130 / 3130 Output Total 200 / 200 Balance 2930 / 2930 Weight 37.648 kg 37.64 kg Head: Present normocephalic ENT: Present normal exam Neck: Present normal inspection and full ROM Respiratory: Present prolonged expiratory phase and diminished air movement Cardiac: Present Irregularly Regular and Tachycardia GI: Present soft and normal bowel sounds Extremities: Present normal inspection and full ROM Skin: Present intact Assessment and Plan *Assessment and plan (1) Sepsis: Status: Acute Category: Medical Code(s): A41.9 - Sepsis, unspecified organism (2) Acute exacerbation of chronic obstructive pulmonary disease: Status: Acute Category: Medical Code(s): J44.1 - Chronic obstructive pulmonary disease with (acute) exacerbation (3) Pneumonia: Status: Acute Category: Medical Code(s): J18.9 - Pneumonia, unspecified organism (4) Acute respiratory distress: Status: Acute Category: Medical Code(s): R06.03 - Acute respiratory distress (5) Tobacco abuse disorder: Status: Chronic Category: Medical Code(s): Z72.0 - Tobacco use Plan 63-year-old COPD patient who still smokes who presented with respiratory failure. Patient currently being treated for respiratory distress secondary to sepsis causing COPD exacerbation. Patient also suffers from chronic weight loss. #SEPSIS worsening COPD exacerbation Meets Criteria for tachypnea and tachycardia Likely secondary to COPD exacerbation although pneumonia noted on chest x-ray Received 30ml/kg fluid administration Lactic acid negative Continue broad spectrum abx with azithromycin and Rocephin. Patient initially was given vancomycin and cefepime, will scale back to Rocephin and azithromycin. Procalcitonin pending Monitor inflammatory markers elevated #Acute respiratory failure with hypoxia and hypercapnia ?12/25 continue nebulization treatments, glucocorticoids, wean from BiPAP as tolerated, appreciate pulmonology assistance! Continue antibiotics. Spent over 15 minutes at bedside explaining to both patient and patient's that patient should stop smoking. #Tobacco use disorder Complicating respiratory system at this time Nicotine patch #Cachexia #Severe protein calorie malnutrition ?12/25 would recommend GI outpatient follow-up for chronic weight loss issue. Has been reports approximately 60 pound weight loss over the last couple years Initiate high-protein diet with boost supplementation DVT PPx Lovenox, reduced dose given cachexia Disposition: ? Patient will remain in stepdown until weaned from BiPAP. Patient currently not appropriate for hospital disposition. 35 minutes of critical care time spent with patient by Dr. Ash 12/26/2023
--- NOTE | 2023-12-26 19:10 | PC.NURSE ---
Upon entry to room for bedside report patient was sitting up in bed in tripod position, tachypneic in 40's, tachycardic around 130's, with O2 sats maintaining around 88-90%. Patient appears to be gasping for air, unable to catch breath. Lungs diminished to auscultation bilaterally. Shayy Don APRN notified of patient condition, and new orders received. See 1929 After medication administration, patient appears to be recovering well with respirations at 24, heart rate one teens, and o2 sats >92%. Patient appears to be resting with eyes closed, without complaint at this time. Family at bedside for support.
[2023-12-26] MEDS: LORazepam 2MG/ML VIAL 0.25 MG IV (19:15)
[2023-12-26 19:56] LABS: Parainfluenza 4, PCR Detected (NotDetected)
[2023-12-26] MEDS: AZITHROMYCIN 500 MG in 0.9 % SODIUM CHLORIDE 250 ML 250 MG IV (22:26)
[2023-12-26] MEDS: MIRTAZAPINE 15 MG TABLET 30 MG PO (22:29)
[2023-12-26] MEDS: TRAZODONE 50MG TABLET 100 MG PO (22:29)
[2023-12-26] MEDS: ATORVASTATIN 40MG TABLET 40 MG PO (22:29)
[2023-12-26] MEDS: ROPINIROLE 1MG TABLET 1 MG PO (22:29)
[2023-12-26] MEDS: lamoTRIgine 100MG TABLET 150 MG PO (22:29)
[2023-12-27] VITALS (19 sets, daily range): BP systolic 103–155; BP diastolic 53–90; PULSE 60–120; RESP 18–28; TEMP 36.4–37.2; O2SAT 90–100; BMI 16.4
[2023-12-27] MEDS: IPRATROPIUM/ALBUTEROL 3 ML NEB IH ×4 (01:42→15:07)
[2023-12-27] MEDS: METHYLPREDNISOLONE SOD SUCC 40MG VIAL 40 MG IV ×3 (06:08→22:44)
[2023-12-27] MEDS: BUDESONIDE 0.5MG/2ML NEB 0.5 MG IH ×2 (06:11→18:53)
[2023-12-27 06:33] LABS: Basophils % 0.2 % (0.1-2.0); Hematocrit 40.3 % (37.0-47.0); Hemoglobin 12.3 g/dL (12.2-16.2); Lymphocytes # 0.8 K/mm3 (0.7-4.5); Mean Corpuscular HGB Conc 30.6 g/dL (31.8-35.4); Mean Corpuscular Hemoglobin 33.7 pg (27.0-31.2); Mean Corpuscular Volume 110.2 fl (81-99); Mean Platelet Volume 7.8 fl (7.4-10.4); Monocytes # 0.3 K/mm3 (0.1-1.0); Monocytes % 5.1 % (1.7-9.3); Neutrophils % 81.7 % (37.0-80.0); Platelet Count 258 K/mm3 (142-424); Red Blood Count 3.66 M/mm3 (4.20-5.40); Red Cell Distribution Width 13.1 % (11.5-17.5); White Blood Count 6.1 K/mm3 (4.8-10.8)
[2023-12-27 06:39] LABS: Chloride 108 mmol/L (98-107)
[2023-12-27 06:40] LABS: Potassium 3.1 mmoL/L (3.5-5.1); Sodium 145 mmol/L (136-145)
[2023-12-27 06:42] LABS: Blood Urea Nitrogen 23 mg/dl (7-17); Creatinine Clearance Estimated 35 mL/min (50-200); Estimated Glomerular Filt Rate 84 ml/min (>60); GFR (African American) 102 ML/MIN (>60)
[2023-12-27 06:43] LABS: Anion Gap 4.1 mEq/L (5-15); Calcium 8.8 mg/dl (8.4-10.2); Carbon Dioxide 36 mmol/L (22.0-30.0); Glucose 101 mg/dl (74-100); Magnesium 2.2 mg/dl (1.6-2.3)
[2023-12-27 06:48] LABS: C-Reactive Protein 56.6 mg/L (0-4)
[2023-12-27 08:08] LABS: Procalcitonin 0.648 ng/mL (0.0-2.0)
[2023-12-27] MEDS: CEFTRIAXONE SODIUM 1 GM in 0.9 % SODIUM CHLORIDE 50 ML IV (08:31)
[2023-12-27] MEDS: ENOXAPARIN 30MG/0.3ML SYRINGE 30 MG SQ (08:31)
[2023-12-27] MEDS: SERTRALINE 100MG TABLET 200 MG PO (08:32)
[2023-12-27] MEDS: lamoTRIgine 100MG TABLET 150 MG PO ×2 (08:32→20:23)
[2023-12-27] MEDS: FUROSEMIDE 40 MG TABLET PO (08:32)
--- NOTE | 2023-12-27 09:54 | P.PN_ITS ---
Subjective *Date: 12/27/23 *Time: 11:26 Interval history: No acute respiratory vents overnight. Weaned to nasal cannula. Patient admits improving respiratory distress. Intermittent panic attacks. Pulmonology Exam Inpatient Vital signs and Labs for Last 24 Hours: Temp Pulse Resp BP Pulse Ox O2 Del Method O2 Flow Rate 97.8 F 64 18 133/68 94 L BiPAP 30 12/27/23 08:00 12/27/23 08:00 12/27/23 08:00 12/27/23 08:00 12/27/23 08:00 12/27/23 08:00 12/26/23 10:57 FiO2 30 12/27/23 06:11 Laboratory Results - last 24 hr 12/26/23 11:30: VBG pH 7.35, VBG pCO2 53.6 H, VBG pO2 158.5 H, VBG HCO3 29.2, VBG Total CO2 30.8 H, VBG O2 Saturation 99.1 H, VBG Base Excess 3.6 H, VBG Lactic Acid 1.2 12/26/23 11:36: Troponin I 0.04 H 12/26/23 18:00: Chlamy pneumoniae PCR Not detected, Adenovirus (PCR) Not detected, B. pertussis DNA (PCR) Not detected, Coronavirus OC43 (PCR) Not detected, Coronavirus HKU1 (PCR) Not detected, Coronavirus 229E (PCR) Not detected, SARS-CoV-2 (PCR) Not detected, Coronavirus NL63 (PCR) Not detected, Human Metapneumovir PCR Not detected, Influenza A (H1) PCR Not detected, Influ A (H1N1/09) PCR Not detected, Influenza A (H3) PCR Not detected, Influenza Type A (PCR) Not detected, Influenza Type B (PCR) Not detected, M. pneumoniae (PCR) Not detected, Parainfluenza 1 (PCR) Not detected, Parainfluenza 2 (PCR) Not detected, Parainfluenza 3 (PCR) Not detected, Parainfluenza 4 (PCR) Detected A, RSV (PCR) Not detected, Entero/Rhino (PCR) Not detected 12/27/23 05:35: WBC 6.1 D, RBC 3.66 L, Hgb 12.3, Hct 40.3, MCV 110.2 H, MCH 33.7 H, MCHC 30.6 L, RDW 13.1, Plt Count 258, MPV 7.8, Neut % (Auto) 81.7 H, Lymph % (Auto) 13.0, [place] % (Auto) 5.1, Eos % (Auto) 0.0 L, Baso % (Auto) 0.2, Neut # (Auto) 5.0, Lymph # (Auto) 0.8, [place] # (Auto) 0.3, Eos # (Auto) 0.0, Baso # (Auto) 0.0, Sodium 145, Potassium 3.1 L, Chloride 108 H, Carbon Dioxide 36 H, Anion Gap 4.1 L, BUN 23 H D, Creatinine 0.70, Estimated Creat Clear 35, Estimated GFR 84, Est GFR ( Amer) 102, Glucose 101 H, Calcium 8.8, Magnesium 2.2 D, C-Reactive Protein 56.6 H D, Procalcitonin 0.648 Temp Pulse Resp BP Pulse Ox O2 Del Method O2 Flow Rate 99.7 F H 104 H 24 100/65 L 98 Room Air 3 12/26/23 08:00 12/26/23 08:00 12/26/23 08:00 12/26/23 08:00 12/26/23 08:00 12/26/23 08:09 12/26/23 04:00 FiO2 40 12/26/23 06:22 Laboratory Results - last 24 hr 12/25/23 19:26: VBG pH 7.38, VBG pCO2 50.9, VBG pO2 46.5 H, VBG HCO3 29.3, VBG Total CO2 30.9 H, VBG O2 Saturation 84.3 H, VBG Base Excess 4.1 H, VBG Lactic Acid 1.6 12/25/23 19:30: WBC 9.7, RBC 4.42, Hgb 14.6, Hct 47.5 H, MCV 107.5 H, MCH 33.0 H , MCHC 30.7 L, RDW 13.1, Plt Count 298, MPV 8.0, Neut % (Auto) 81.8 H, Lymph % (Auto) 10.0, [place] % (Auto) 6.4, Eos % (Auto) 0.4, Baso % (Auto) 1.3, Neut # (Auto) 7.9 H, Lymph # (Auto) 1.0, [place] # (Auto) 0.6, Eos # (Auto) 0.0, Baso # (Auto) 0.1, D-Dimer 0.49, Sodium 140, Potassium 3.3 L, Chloride 102, Carbon Dioxide 31 H, Anion Gap 10.3, BUN 14, Creatinine 0.60, Estimated Creat Clear 33, Estimated GFR 100, Est GFR ( Amer) 121, Glucose 123 H, Lactate 1.2, Calcium 10.3 H, Magnesium 1.4 L, Total Bilirubin 0.3, AST 40 H, ALT 25, Alkaline Phosphatase 85, Troponin I < 0.01, C-Reactive Protein 85.7 H, NT-Pro-B Natriuret Pep 186 H 12/25/23 19:30: NT-Pro-B Natriuret Pep 189 H, Total Protein 7.4, Albumin 4.1, Globulin 3.3 H, Albumin/Globulin Ratio 1.2, Procalcitonin 0.158 12/25/23 19:30: Procalcitonin 0.178 12/25/23 21:15: VBG pH 7.12 L, VBG pCO2 90.2 H, VBG pO2 106.9 H, VBG HCO3 28.6, VBG Total CO2 31.4 H, VBG O2 Saturation 96.5 H, VBG Base Excess -0.8, VBG Lactic Acid 1.5 12/25/23 22:30: Troponin I < 0.01 12/25/23 23:00: Specimen Source L radial, O2 % 40, ABG pH 7.17 L*, ABG pCO2 75.5 H, ABG pO2 121.9 H, ABG HCO3 27.0 H, ABG Total CO2 29.3 H, ABG O2 Saturation 98, ABG Base Excess -1.5, Anshu Test Acceptable, Vent Rate 24, Tidal Volume 18/8 12/26/23 01:00: VBG pH 7.24 L, VBG pCO2 67.0 H, VBG pO2 46.8 H, VBG HCO3 27.9, VBG Total CO2 30.0 H, VBG O2 Saturation 82.0 H, VBG Base Excess 0.5, VBG Lactic Acid 1.4 12/26/23 06:27: Specimen Source L radial, O2 % 40%, ABG pH 7.28 L, ABG pCO2 62.6 H, ABG pO2 117.8 H, ABG HCO3 28.9 H, ABG Total CO2 30.8 H, ABG O2 Saturation 98, ABG Base Excess 2.2, Anshu Test Acceptable, Tidal Volume 18/8 I & O for Labs for Last 24 Hours: Intake & Output 12/24/23 12/25/23 12/26/23 12/27/23 23:59 23:59 23:59 23:59 Intake Total 3130 / 3380 730 / 730 Output Total 200 / 300 500 / 500 Balance 2930 / 3080 230 / 230 Weight 83 lb 82 lb 15.712 oz 86 lb 14.4 oz Intake & Output 12/23/23 12/24/23 12/25/23 12/26/23 23:59 23:59 23:59 23:59 Intake Total 3080 / 3080 Output Total 200 / 200 Balance 2880 / 2880 Weight 83 lb 82 lb 15.994 oz Microbiology Reports for the Last 24 Hours: Microbiology 12/25/23 19:35 Blood Blood Culture - Preliminary NO GROWTH AFTER 24 HOURS 12/25/23 19:30 Blood Blood Culture - Preliminary NO GROWTH AFTER 24 HOURS Constitutional: Present severe distress Head: Present normocephalic and atraumatic ENT: Present normal exam, normal oropharynx and mucous membranes moist Neck: Present normal inspection and full ROM Respiratory: Present respiratory distress and diminished air movement; Absent wheezes or able to speak in complete sentences Cardiac: Present S1/S2, Tachycardia and radial pulses present GI: Present soft and distention; Absent tenderness or guarding Rectal (female): Present deferred (female): Present deferred Skin: Present intact; Absent cyanosis or jaundice Neuro: Present alert, awake and oriented x 3 Extremities: Present normal inspection; Absent clubbing or cyanosis Psychiatric: Present anxious Assessment and Plan *Assessment and plan (1) Acute exacerbation of chronic obstructive pulmonary disease: Status: Acute Category: Medical Code(s): J44.1 - Chronic obstructive pulmonary disease with (acute) exacerbation (2) Sepsis: Status: Acute Category: Medical Code(s): A41.9 - Sepsis, unspecified organism (3) Acute on chronic respiratory failure with hypoxia and hypercapnia: Status: Acute Category: Medical Code(s): J96.21 - Acute and chronic respiratory failure with hypoxia; J96.22 - Acute and chronic respiratory failure with hypercapnia (4) Pneumonia: Status: Acute Category: Medical Code(s): J18.9 - Pneumonia, unspecified organism Plan Ms. Mccrary is a 63-year-old female current smoker greater than [id number] smoking history last seen in pulmonary clinic in October 2021, very severe COPD FEV1 at 26% predicted with significant reversibility, multiple pulmonary nodules presented to ER with worsening respiratory distress admitted for COPD exacerbation hypercarbic respiratory failure needing noninvasive ventilator therapy and pulmonary was called for further evaluation and management. Patient also due for 9-month follow-up CT chest on her last clinic visit, lost to follow-up. Labs on admission reviewed, no evidence of significant leukocytosis. Hypercarbic respiratory failure with a pH of 7.17 with a pCO2 of 75.5. Slightly improved from this morning at a pH of 7.27 with a pCO2 of 62.6. Chest x-ray from this morning no acute airspace disease/consolidation is noted. Hyperinflated lungs noted. No acute change compared to chest x-ray from adm ission. Currently receiving nebulization therapies azithromycin and methylprednisolone. On initial examination patient obtunded responding to painful stimuli. As per the family, patient continued to smoke. Using inhalers. Do not have access to nebulization therapies. Continued worsening respiratory status for the last 3 to 4 weeks progressively getting worse. Interval update: Weaned off BiPAP. Alert and oriented x 3. Cannula well. Continue to receive DuoNebs along with methylprednisolone. Plan: Nasal cannula oxygen supplementation to maintain O2 saturation goal of 89 to 95%. Currently on 2 to 3 L nasal cannula. Continue ceftriaxone azithromycin pending culture results. DuoNebs every 4 hours along with Pulmicort Q12 scheduled. Continue methylprednisolone 40 every 8 hours Lasix 40 mg IV once F/U Echocardiogram report # Thank you for involving pulmonary in this patient care. Will continue to follow.
--- NOTE | 2023-12-27 10:24 | XR_ITS ---
FINAL REPORT CLINICAL HISTORY: pneumonia/copd COMPARISON: 12/26/2023 FINDINGS: SINGLE-VIEW CHEST The heart size is normal. The mediastinum is normal. There is chronic interstitial opacity at the bases, probably chronic. There is no pneumothorax. IMPRESSION: No acute cardiopulmonary process. Reviewed, Interpreted and Dictated by Ben Lacy MD Transcribed by Consuelo Myers Authenticated and [facility]
[2023-12-27] MEDS: LORazepam 0.5MG TABLET 0.25 MG PO (11:07)
[2023-12-27] MEDS: POTASSIUM CHLORIDE 20MEQ TAB 20 MEQ PO ×2 (11:37)
[2023-12-27] MEDS: FUROSEMIDE 40MG/4ML VIAL 40 MG IV (11:38)
--- NOTE | 2023-12-27 12:09 | P.PN_ITS ---
Subjective *Date: 12/27/23 *Time: 12:21 Interval history: Patient weaned off BiPAP overnight. Patient breathing more comfortably during exam by Dr. Ash today. States that she will stop smoking. Denies fevers, chills overnight. Patient has suffered from intermittent anxiety issues over past 24 hours and required as needed Ativan. Medical Exam Vital signs and Labs for Last 24 Hours: Vital Signs Temp Pulse Pulse Resp BP Pulse Ox O2 Del Method 12/27/23 11:00 Nasal Cannula 12/27/23 10:04 84 12/27/23 10:04 84 12/27/23 10:04 97 Nasal Cannula 12/27/23 10:00 85 24 146/90 H 95 Nasal Cannula 12/27/23 08:00 60 12/27/23 08:00 BiPAP 12/27/23 08:00 97.8 F 12/27/23 08:00 64 18 133/68 94 L BiPAP 12/27/23 07:43 BiPAP 12/27/23 07:00 BiPAP 12/27/23 06:11 69 12/27/23 06:11 70 12/27/23 06:11 12/27/23 06:00 73 19 126/76 93 L BiPAP 12/27/23 05:00 BiPAP 12/27/23 04:00 80 12/27/23 04:00 97.6 F 75 20 103/53 L 93 L BiPAP 12/27/23 03:00 BiPAP 12/27/23 02:00 94 H 25 H 118/68 92 L BiPAP 12/27/23 01:42 91 H 12/27/23 01:42 93 H 12/27/23 01:42 12/27/23 01:00 BiPAP 12/27/23 00:00 92 H 12/27/23 00:00 97.7 F 90 28 H 126/80 90 L BiPAP 12/26/23 23:00 BiPAP 12/26/23 22:41 76 12/26/23 22:41 80 12/26/23 22:30 12/26/23 22:00 81 25 H 106/66 L 91 L BiPAP 12/26/23 20:00 100 H 12/26/23 20:00 98.7 F 12/26/23 18:40 BiPAP 12/26/23 18:38 82 12/26/23 18:38 84 08/21/24 18:35 12/26/23 18:00 81 24 122/73 100 BiPAP 12/26/23 17:55 12/26/23 17:00 BiPAP 12/26/23 16:00 98 F 12/26/23 16:00 BiPAP 12/26/23 16:00 80 12/26/23 16:00 78 24 98/61 L 98 BiPAP 12/26/23 15:00 BiPAP 12/26/23 14:00 12/26/23 14:00 95 H 26 H 97/66 L 97 BiPAP 12/26/23 13:49 85 12/26/23 13:49 87 12/26/23 13:00 BiPAP O2 Flow Rate FiO2 12/27/23 11:00 3 12/27/23 10:04 12/27/23 10:04 12/27/23 10:04 3 12/27/23 10:00 3 12/27/23 08:00 12/27/23 08:00 12/27/23 08:00 12/27/23 08:00 12/27/23 07:43 12/27/23 07:00 12/27/23 06:11 12/27/23 06:11 12/27/23 06:11 30 12/27/23 06:00 30 12/27/23 05:00 12/27/23 04:00 12/27/23 04:00 30 12/27/23 03:00 12/27/23 02:00 30 12/27/23 01:42 12/27/23 01:42 12/27/23 01:42 30 12/27/23 01:00 12/27/23 00:00 12/27/23 00:00 30 12/26/23 23:00 12/26/23 22:41 12/26/23 22:41 12/26/23 22:30 30 12/26/23 22:00 30 12/26/23 20:00 12/26/23 20:00 30 12/26/23 18:40 12/26/23 18:38 12/26/23 18:38 12/26/23 18:35 30 12/26/23 18:00 30 12/26/23 17:55 30 12/26/23 17:00 12/26/23 16:00 08/21/24 16:00 12/26/23 16:00 12/26/23 16:00 30 12/26/23 15:00 12/26/23 14:00 30 12/26/23 14:00 30 12/26/23 13:49 12/26/23 13:49 12/26/23 13:00 Intake and Output 12/26/23 12/27/23 12/27/23 23:59 07:59 15:59 Intake Total 250 / 730 480 / 730 Output Total 0 / 300 500 / 1450 950 / 1450 Balance 0 / 3080 -250 / -720 -470 / -720 Intake: Intake, Oral Amount 480 / 480 Intake, Total IV Amount 250 / 250 Azithromycin 500 mg In 0.9 % 250 / 250 Sodium Chloride 250 ml @ 250 mls/hr IV 2100 [facility] Rx#:[id number] Output: Output, Urine Amount 0 / 300 500 / 1450 950 / 1450 Other: Number of Unmeasured Voids 1 0 0 Weight 39.417 kg Patient Weight 12/27/23 23:59 Weight 39.417 kg Laboratory Results - last 24 hr 12/26/23 11:36: Troponin I 0.04 H 12/26/23 18:00: Chlamy pneumoniae PCR Not detected, Adenovirus (PCR) Not detected, B. pertussis DNA (PCR) Not detected, Coronavirus OC43 (PCR) Not detected, Coronavirus HKU1 (PCR) Not detected, Coronavirus 229E (PCR) Not detected, SARS-CoV-2 (PCR) Not detected, Coronavirus NL63 (PCR) Not detected, Human Metapneumovir PCR Not detected, Influenza A (H1) PCR Not detected, Influ A (H1N1/09) PCR Not detected, Influenza A (H3) PCR Not detected, Influenza Type A (PCR) Not detected, Influenza Type B (PCR) Not detected, M. pneumoniae (PCR) Not detected, Parainfluenza 1 (PCR) Not detected, Parainfluenza 2 (PCR) Not detected, Parainfluenza 3 (PCR) Not detected, Parainfluenza 4 (PCR) Detected A, RSV (PCR) Not detected, Entero/Rhino (PCR) Not detected 12/27/23 05:35: WBC 6.1 D, RBC 3.66 L, Hgb 12.3, Hct 40.3, MCV 110.2 H, MCH 33.7 H, MCHC 30.6 L, RDW 13.1, Plt Count 258, MPV 7.8, Neut % (Auto) 81.7 H, Lymph % (Auto) 13.0, [place] % (Auto) 5.1, Eos % (Auto) 0.0 L, Baso % (Auto) 0.2, Neut # (Auto) 5.0, Lymph # (Auto) 0.8, [place] # (Auto) 0.3, Eos # (Auto) 0.0, Baso # (Auto) 0.0, Sodium 145, Potassium 3.1 L, Chloride 108 H, Carbon Dioxide 36 H, Anion Gap 4.1 L, BUN 23 H D, Creatinine 0.70, Estimated Creat Clear 35, Estimated GFR 84, Est GFR ( Amer) 102, Glucose 101 H, Calcium 8.8, Magnesium 2.2 D, C-Reactive Protein 56.6 H D, Procalcitonin 0.648 I & O for Labs for Last 24 Hours: Intake & Output 12/24/23 12/25/23 12/26/23 12/27/23 23:59 23:59 23:59 23:59 Intake Total 3130 / 3380 730 / 730 Output Total 200 / 300 1450 / 1450 Balance 2930 / 3080 -720 / -720 Weight 37.648 kg 37.64 kg 39.417 kg Microbiology Reports for the Last 24 Hours: Microbiology 12/25/23 19:35 Blood Blood Culture - Preliminary NO GROWTH AFTER 24 HOURS 12/25/23 19:30 Blood Blood Culture - Preliminary NO GROWTH AFTER 24 HOURS Head: Present normocephalic ENT: Present normal exam and normal oropharynx Neck: Present normal inspection Respiratory: Present decreased breath sounds, prolonged expiratory phase and diminished air movement Cardiac: Present Reg Rate and Rhythm, Regular Rate and Regular Rhythm GI: Present soft and normal bowel sounds Rectal (female): Present deferred (female): Present deferred Extremities: Present normal inspection and full ROM Skin: Present intact and dry Assessment and Plan *Assessment and plan (1) Sepsis: Status: Acute Category: Medical Code(s): A41.9 - Sepsis, unspecified organism (2) Acute exacerbation of chronic obstructive pulmonary disease: Status: Acute Category: Medical Code(s): J44.1 - Chronic obstructive pulmonary disease with (acute) exacerbation (3) Pneumonia: Status: Acute Category: Medical Code(s): J18.9 - Pneumonia, unspecified organism (4) Acute respiratory distress: Status: Acute Category: Medical Code(s): R06.03 - Acute respiratory distress (5) Acute on chronic respiratory failure with hypoxia and hypercapnia: Status: Acute Category: Medical Code(s): J96.21 - Acute and chronic respiratory failure with hypoxia; J96.22 - Acute and chronic respiratory failure with hypercapnia (6) Tobacco abuse disorder: Status: Chronic Category: Medical Code(s): Z72.0 - Tobacco use (7) Smoking greater than 30 pack years: Status: Chronic Category: Social Hx Code(s): F17.210 - Nicotine dependence, cigarettes, uncomplicated Plan 63-year-old COPD patient who still smokes who presented with respiratory failure. Patient currently being treated for respiratory distress secondary to sepsis causing COPD exacerbation. Patient also suffers from chronic weight loss secondary to severe protein caloric malnutrition. # COPD exacerbation secondary to parainfluenza and possibly bacterial sepsis: ?12/26 increase Solu-Medrol to 40 IV every 6. Patient weaned from BiPAP overnight. Continue nebulization treatments, supplemental oxygen and wean as tolerated. Patient has agreed to stop smoking. ?12/26 continue current management. Patient improving on antibiotic therapy. Procalcitonin trending upwards while CRP trending downwards. Patient currently without leukocytosis or fever. - 12/25 Continue broad spectrum abx with azithromycin and Rocephin. Patient initially was given vancomycin and cefepime, will scale back to Rocephin and azithromycin. Monitor inflammatory markers elevated #Acute respiratory failure with hypoxia and hypercapnia -12/25 resp panel positive for parainfluenza. ?12/25 continue nebulization treatments, glucocorticoids, wean from BiPAP as tolerated, appreciate pulmonology assistance! Continue antibiotics. Spent over 15 minutes at bedside explaining to both patient and patient's that patient should stop smoking. ?Lactic acid negative but fluid sepsis bolus given in emergency room. #Tobacco use disorder ?12/26 patient has agreed to quit smoking. Continue nicotine patches. Complicating respiratory system at this time #Cachexia #Severe protein calorie malnutrition ?12/25 would recommend GI outpatient follow-up for chronic weight loss issue. Has been reports approximately 60 pound weight loss over the last couple years Initiate high-protein diet with boost supplementation DVT PPx Lovenox, reduced dose given cachexia FEN: 12/25 on clears, advance to regular diet 12/26 once patient weaned off BiPAP CODE STATUS: Full Disposition: ?12/26 keep patient in stepdown since patient just weaned from BiPAP yesterday. Will likely downgrade patient from stepdown to MedSurg within next 24 hours if patient continues clinical improvement.
[2023-12-27] MEDS: OXYCODONE 7.5MG W/APAP 325MG TABLET 1 EACH PO (14:46)
--- NOTE | 2023-12-27 17:07 | PC.NURSE ---
PT IS SITTING UP IN CHAIR. ALERT AND ORIENTED X4. BIPAP WAS REMOVED THIS MORNING TO TAKE PO MEDS. PT WAS PUT ON 3 L NC. PT TOLERATED TAKING MEDS WITH APPLESAUCE AND DRINKING A FULL GLASS OF WATER. O2 SATURATION HAS MAINTAINED 93-98% ON 3 L NC. LUNG SOUNDS DIMINISHED WITH SCATTERED RHONCHI. ABDOMEN SOFT/NON TENDER WITH ACTIVE BOWEL SOUNDS. APPETITE HAS BEEN POOR HOWEVER PT HAS BEEN SIPPING ON ENSURE. PT HAS BECAME INCREASINGLY ANXIOUS RIGHT AFTER DUONEB TREATMENTS. PT'S HR WILL INCREASE TO THE 120'S AND RESP 30-40/MIN. IT TAKES SOME TIME FOR PT TO RECOVER. THIS MORNING PT HAD A ONE TIME DOSE OF 0.25 ATIVAN PO. WHEN PT HAD THE SAME EPISODE AFTER TREATMENT THIS AFTERNOON WAS NOTIFIED AND SWITCHED TREATMENTS TO XOPENEX. AT THIS TIME PT'S BP 125/82, HR 108. RESP 24 AND O2 SATURATION 99% ON 3 L NC. ORDERED FOR PT TO NOT WEAR BIPAP THIS EVENING AND TO ORDER VBG FOR IN THE MORNING. WILL CONTINUE TO MONITOR.
[2023-12-27] MEDS: LEVALBUTEROL 0.63MG/3ML NEB 0.63 MG IH ×2 (18:53→21:59)
[2023-12-27] MEDS: IPRATROPIUM BROMIDE 0.5 MG/2.5ML SOLUTION IH ×2 (18:53→21:59)
[2023-12-27] MEDS: ATORVASTATIN 40MG TABLET 40 MG PO (20:22)
[2023-12-27] MEDS: AZITHROMYCIN 500 MG in 0.9 % SODIUM CHLORIDE 250 ML 250 MG IV (20:22)
[2023-12-27] MEDS: MIRTAZAPINE 15 MG TABLET 30 MG PO (20:24)
[2023-12-27] MEDS: TRAZODONE 50MG TABLET 100 MG PO (20:24)
[2023-12-27] MEDS: ROPINIROLE 1MG TABLET 1 MG PO (20:24)
[2023-12-28] VITALS (17 sets, daily range): BP systolic 87–148; BP diastolic 61–76; PULSE 70–130; RESP 16–31; TEMP 35.8–37.1; O2SAT 95–100; BMI 16.4
[2023-12-28] MEDS: ONDANSETRON 4MG/2ML VIAL 4 MG IV (00:28)
--- NOTE | 2023-12-28 04:05 | PC.NURSE ---
TRN and tech in room to provide latha care to patient when TRN noticed during assessment that patient was obtunded, extremely lethargic, and slow to respond. SENIOR COMMISSIONS ANALYST notified and new orders to obtain VBG and place patient back on bipap. SENIOR COMMISSIONS ANALYST, charge nurse, respiratory and dye house supervisor at bedside. VBG drawn. Patient repositioned to comfort and placed in high fowlers. Patient oxygen saturations dropped to 78% to which FIO2 was increased to 100% for approx 5 min for respiratory recovery. 0445 VS currently 113/70, 119 HR, 31 RR, and 94% on bipap decreased FIO2 to 40% at this time. Patient resting with eyes closed, but opens eyes and responds to voice. Following commands, along with shaking head yes and no when asked questions.
[2023-12-28 04:41] LABS: Lactate Venous 1.9 mmol/L (0.4-2.0); VBG Base Excess 4.3 mmol/L (-2.4-2.3); VBG HCO3 32.2 mmol/L (23-30); VBG Oxygen Saturation 94.8 % (50-70); VBG PH 7.21 mmol/L (7.31-7.41); VBG PO2 75.6 mmol/L (28-40); VBG Total CO2 34.8 mmol/L (23-27)
[2023-12-28 04:47] LABS: VBG PCO2 83.2 mmol/L (35-51)
[2023-12-28] MEDS: METHYLPREDNISOLONE SOD SUCC 40MG VIAL 40 MG IV ×4 (05:05→22:21)
[2023-12-28] MEDS: BUDESONIDE 0.5MG/2ML NEB 0.5 MG IH ×2 (05:35→18:10)
[2023-12-28] MEDS: IPRATROPIUM BROMIDE 0.5 MG/2.5ML SOLUTION IH ×5 (05:35→21:39)
[2023-12-28] MEDS: LEVALBUTEROL 0.63MG/3ML NEB 0.63 MG IH ×5 (05:35→21:40)
[2023-12-28 05:48] LABS: Basophils # 0.1 K/mm3 (0-0.2); Basophils % 0.4 % (0.1-2.0); Eosinophils # 0.1 K/mm3 (0.0-0.4); Eosinophils % 0.5 % (0.1-12.0); Hematocrit 50.4 % (37.0-47.0); Lymphocytes # 0.6 K/mm3 (0.7-4.5); Lymphocytes % 3.9 % (10-50); Mean Corpuscular HGB Conc 29.2 g/dL (31.8-35.4); Mean Corpuscular Hemoglobin 33.2 pg (27.0-31.2); Mean Corpuscular Volume 113.9 fl (81-99); Mean Platelet Volume 8.2 fl (7.4-10.4); Monocytes # 0.8 K/mm3 (0.1-1.0); Monocytes % 4.9 % (1.7-9.3); Neutrophils # 13.8 K/mm3 (1.8-7.8); Neutrophils % 90.2 % (37.0-80.0); Platelet Count 334 K/mm3 (142-424); Red Blood Count 4.43 M/mm3 (4.20-5.40); Red Cell Distribution Width 13.1 % (11.5-17.5); White Blood Count 15.3 K/mm3 (4.8-10.8)
[2023-12-28 05:53] LABS: MANUAL DIFFERENTIAL MANUAL DIFFERENTIAL (MANUAL DIFF)
[2023-12-28 05:56] LABS: Chloride 107 mmol/L (98-107); Hemoglobin 14.8 g/dL (12.2-16.2); Sodium 149 mmol/L (136-145)
[2023-12-28 05:57] LABS: Potassium 3.5 mmoL/L (3.5-5.1)
[2023-12-28 05:59] LABS: Anion Gap 10.5 mEq/L (5-15); Blood Urea Nitrogen 36 mg/dl (7-17); Carbon Dioxide 35 mmol/L (22.0-30.0); Creatinine Clearance Estimated 35 mL/min (50-200); Estimated Glomerular Filt Rate 72 ml/min (>60); GFR (African American) 87 ML/MIN (>60)
[2023-12-28 06:00] LABS: Glucose 185 mg/dl (74-100); Magnesium 2.4 mg/dl (1.6-2.3)
[2023-12-28 06:05] LABS: C-Reactive Protein 40.3 mg/L (0-4)
[2023-12-28 06:12] LABS: Lymphocytes % 6 % (10-50); Neutrophils % 94 % (42-76); Nucleated Red Blood Cells 1; RBC Morphology Normal; Stomatocytes 1+; Total Cells Counted 100
[2023-12-28 06:48] LABS: Procalcitonin 0.641 ng/mL (0.0-2.0)
[2023-12-28] MEDS: FUROSEMIDE 40 MG TABLET PO (08:27)
[2023-12-28] MEDS: lamoTRIgine 100MG TABLET 150 MG PO ×2 (08:27→21:01)
[2023-12-28] MEDS: POTASSIUM CHLORIDE 20MEQ TAB 20 MEQ PO (08:27)
[2023-12-28] MEDS: CEFTRIAXONE SODIUM 1 GM in 0.9 % SODIUM CHLORIDE 50 ML IV (08:27)
[2023-12-28] MEDS: ENOXAPARIN 40MG/0.4ML SYRINGE 40 MG SQ (08:27)
[2023-12-28] MEDS: SERTRALINE 100MG TABLET 200 MG PO (08:28)
--- NOTE | 2023-12-28 09:46 | EXP.PULM.PN ---
Subjective *Date: 12/28/23 *Time: 12:28 Interval history: Worsening respiratory distress overnight with worsening hypercarbia needing BiPAP therapy Pulmonology Exam Inpatient Vital signs and Labs for Last 24 Hours: Temp Pulse Resp BP Pulse Ox O2 Del Method O2 Flow Rate 97.0 F L 116 H 30 H 107/69 L 95 BiPAP 3 12/28/23 08:00 12/28/23 08:45 12/28/23 08:45 12/28/23 08:45 12/28/23 08:45 12/28/23 08:45 12/28/23 04:00 FiO2 60 12/28/23 06:02 Laboratory Results - last 24 hr 12/28/23 04:40: VBG pH 7.21 L, VBG pCO2 83.2 H, VBG pO2 75.6 H, VBG HCO3 32.2 H, VBG Total CO2 34.8 H, VBG O2 Saturation 94.8 H, VBG Base Excess 4.3 H, VBG Lactic Acid 1.9 12/28/23 05:25: WBC 15.3 H D, RBC 4.43, Hgb 14.8 D, Hct 50.4 H, MCV 113.9 H, MCH 33.2 H, MCHC 29.2 L, RDW 13.1, Plt Count 334 D, MPV 8.2, Neut % (Auto) 90.2 H, Lymph % (Auto) 3.9 L, [place] % (Auto) 4.9, Eos % (Auto) 0.5, Baso % (Auto) 0.4, Neut # (Auto) 13.8 H, Lymph # (Auto) 0.6 L, [place] # (Auto) 0.8, Eos # (Auto) 0.1, Baso # (Auto) 0.1, Total Counted 100, Neutrophils % (Manual) 94 H, Lymphocytes % (Manual) 6 L, Nucleated RBCs 1, Platelet Estimate Not Reportable, RBC Morphology Normal, Stomatocytes 1+, Sodium 149 H, Potassium 3.5, Chloride 107, Carbon Dioxide 35 H, Anion Gap 10.5, BUN 36 H D, Creatinine 0.80, Estimated Creat Clear 35, Estimated GFR 72, Est GFR ( Amer) 87, Glucose 185 H D, Calcium 9.0, Magnesium 2.4 H, C-Reactive Protein 40.3 H D, Procalcitonin 0.641 Temp Pulse Resp BP Pulse Ox O2 Del Method O2 Flow Rate 99.7 F H 104 H 24 100/65 L 98 Room Air 3 12/26/23 08:00 12/26/23 08:00 12/26/23 08:00 12/26/23 08:00 12/26/23 08:00 12/26/23 08:09 12/26/23 04:00 FiO2 40 12/26/23 06:22 Laboratory Results - last 24 hr 12/25/23 19:26: VBG pH 7.38, VBG pCO2 50.9, VBG pO2 46.5 H, VBG HCO3 29.3, VBG Total CO2 30.9 H, VBG O2 Saturation 84.3 H, VBG Base Excess 4.1 H, VBG Lactic Acid 1.6 12/25/23 19:30: WBC 9.7, RBC 4.42, Hgb 14.6, Hct 47.5 H, MCV 107.5 H, MCH 33.0 H, MCHC 30.7 L, RDW 13.1, Plt Count 298, MPV 8.0, Neut % (Auto) 81.8 H, Lymph % (Auto) 10.0, [place] % (Auto) 6.4, Eos % (Auto) 0.4, Baso % (Auto) 1.3, Neut # (Auto) 7.9 H, Lymph # (Auto) 1.0, [place] # (Auto) 0.6, Eos # (Auto) 0.0, Baso # (Auto) 0.1, D-Dimer 0.49, Sodium 140, Potassium 3.3 L, Chloride 102, Carbon Dioxide 31 H, Anion Gap 10.3, BUN 14, Creatinine 0.60, Estimated Creat Clear 33, Estimated GFR 100, Est GFR ( Amer) 121, Glucose 123 H, Lactate 1.2, Calcium 10.3 H, Magnesium 1.4 L, Total Bilirubin 0.3, AST 40 H, ALT 25, Alkaline Phosphatase 85, Troponin I < 0.01, C-Reactive Protein 85.7 H, NT-Pro-B Natriuret Pep 186 H 12/25/23 19:30: NT-Pro-B Natriuret Pep 189 H, Total Protein 7.4, Albumin 4.1, Globulin 3.3 H, Albumin/Globulin Ratio 1.2, Procalcitonin 0.158 12/25/23 19:30: Procalcitonin 0.178 12/25/23 21:15: VBG pH 7.12 L, VBG pCO2 90.2 H, VBG pO2 106.9 H, VBG HCO3 28.6, VBG Total CO2 31.4 H, VBG O2 Saturation 96.5 H, VBG Base Excess -0.8, VBG Lactic Acid 1.5 12/25/23 22:30: Troponin I < 0.01 12/25/23 23:00: Specimen Source L radial, O2 % 40, ABG pH 7.17 L*, ABG pCO2 75.5 H, ABG pO2 121.9 H, ABG HCO3 27.0 H, ABG Total CO2 29.3 H, ABG O2 Saturation 98, ABG Base Excess -1.5, Anshu Test Acceptable, Vent Rate 24, Tidal Volume 18/8 12/26/23 01:00: VBG pH 7.24 L, VBG pCO2 67.0 H, VBG pO2 46.8 H, VBG HCO3 27.9, VBG Total CO2 30.0 H, VBG O2 Saturation 82.0 H, VBG Base Excess 0.5, VBG Lactic Acid 1.4 12/26/23 06:27: Specimen Source L radial, O2 % 40%, ABG pH 7.28 L, ABG pCO2 62.6 H, ABG pO2 117.8 H, ABG HCO3 28.9 H, ABG Total CO2 30.8 H, ABG O2 Saturation 98, ABG Base Excess 2.2, Anshu Test Acceptable, Tidal Volume 18/8 I & O for Labs for Last 24 Hours: Intake & Output 12/25/23 12/26/23 12/27/23 12/28/23 23:59 23:59 23:59 23:59 Intake Total 3130 / 3380 1270 / 1645 375 / 375 Output Total 200 / 300 2150 / 2300 150 / 150 Balance 2930 / 3080 -880 / -655 225 / 225 Weight 83 lb 82 lb 15.712 oz 86 lb 14.4 oz 86 lb 14.394 oz Intake & Output 12/23/23 12/24/23 12/25/23 12/26/23 23:59 23:59 23:59 23:59 Intake Total 3080 / 3080 Output Total 200 / 200 Balance 2880 / 2880 Weight 83 lb 82 lb 15.994 oz Microbiology Reports for the Last 24 Hours: Microbiology 12/25/23 19:35 Blood Blood Culture - Preliminary NO GROWTH AFTER 48 HOURS 12/25/23 19:30 Blood Blood Culture - Preliminary NO GROWTH AFTER 48 HOURS Constitutional: Present severe distress Head: Present normocephalic and atraumatic ENT: Present normal exam, normal oropharynx and mucous membranes moist Neck: Present normal inspection and full ROM Respiratory: Present respiratory distress and diminished air movement; Absent wheezes or able to speak in complete sentences Cardiac: Present S1/S2, Tachycardia and radial pulses present GI: Present soft and distention; Absent tenderness or guarding Rectal (female): Present deferred (female): Present deferred Skin: Present intact; Absent cyanosis or jaundice Neuro: Absent alert, awake or oriented x 3 Extremities: Present normal inspection; Absent clubbing or cyanosis Psychiatric: Present anxious Assessment and Plan *Assessment and plan (1) Acute exacerbation of chronic obstructive pulmonary disease: Status: Acute Category: Medical Code(s): J44.1 - Chronic obstructive pulmonary disease with (acute) exacerbation (2) Sepsis: Status: Acute Category: Medical Code(s): A41.9 - Sepsis, unspecified organism (3) Acute on chronic respiratory failure with hypoxia and hypercapnia: Status: Acute Category: Medical Code(s): J96.21 - Acute and chronic respiratory failure with hypoxia; J96.22 - Acute and chronic respiratory failure with hypercapnia (4) Pneumonia: Status: Acute Category: Medical Code(s): J18.9 - Pneumonia, unspecified organism Plan Ms. Mccrary is a 63-year-old female current smoker greater than 22-vrot-obee smoking history last seen in pulmonary clinic in October 2021, very severe COPD FEV1 at 26% predicted with significant reversibility, multiple pulmonary nodules presented to ER with worsening respiratory distress admitted for COPD exacerbation hypercarbic respiratory failure needing noninvasive ventilator therapy and pulmonary was called for further evaluation and management. Patient also due for 9-month follow-up CT chest on her last clinic visit, lost to follow-up. Labs on admission reviewed, no evidence of significant leukocytosis. Hypercarbic respiratory failure with a pH of 7.17 with a pCO2 of 75.5. Slightly improved from this morning at a pH of 7.27 with a pCO2 of 62.6. Chest x-ray from this morning no acute airspace disease/consolidation is noted. Hyperinflated lungs noted. No acute change compared to chest x-ray from admission. Currently receiving nebulization therapies azithromycin and methylprednisolone. On initial examination patient obtunded responding to painful stimuli. As per the family, patient continued to smoke. Using inhalers. Do not have access to nebulization therapies. Continued worsening respiratory status for the last 3 to 4 weeks progressively getting worse. Interval update: Could not tolerate off BiPAP overnight. Significant worsening hypercarbic respiratory failure, placed on BiPAP again. She likely to be discharged home on BiPAP therapy for chronic hypercarbic respiratory failure. Echo normal EF at 55%. Diastolic dysfunction. RV moderately dilated. Along with mild to moderate hypokinesis noted. No intra or atrial shunt noted. Inadequate TR to measure RVSP. Small Pericardial effusion noted. Plan: Continue BiPAP therapy, 10/18 with a respiratory rate of 16 and FiO2 40%. Follow with repeat venous blood gas. Patient would like continued BiPAP therapy upon discharge given her recurrent hypercarbic respiratory failure and severe COPD. Hypercarbic respiratory failure more likely from COPD. Patient less likely to have sleep apnea. Continue ceftriaxone azithromycin pending culture results. Xopenex and ipratropium every 6 hours along with Pulmicort Q12 scheduled. Continue methylprednisolone 40 every 8 hours # Thank you for involving pulmonary in this patient care. Will continue to follow.
[2023-12-28 13:20] LABS: Lactate Venous 1.3 mmol/L (0.4-2.0); VBG Base Excess 3.9 mmol/L (-2.4-2.3); VBG HCO3 28.9 mmol/L (23-30); VBG Oxygen Saturation 98.6 % (50-70); VBG PCO2 49.6 mmol/L (35-51); VBG PH 7.38 mmol/L (7.31-7.41); VBG PO2 107.2 mmol/L (28-40); VBG Total CO2 30.5 mmol/L (23-27)
--- NOTE | 2023-12-28 15:51 | P.PN_ITS ---
Subjective *Date: 12/28/23 *Time: 15:55 Interval history: Patient suffered from some respiratory distress this morning. Patient placed back on BiPAP. present in room at time evaluation by Dr. 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 Medical Exam Vital signs and Labs for Last 24 Hours: Vital Signs Temp Pulse Pulse Resp BP Pulse Ox O2 Del Method 12/28/23 14:00 112 H 28 H 103/68 L 98 BiPAP 12/28/23 13:00 BiPAP 12/28/23 12:00 120 H 12/28/23 12:00 98.7 F 12/28/23 11:00 Room Air 12/28/23 10:30 130 H 12/28/23 10:30 129 H 12/28/23 10:30 12/28/23 10:00 70 28 H 96/64 L 97 BiPAP 12/28/23 09:05 BiPAP 12/28/23 08:45 116 H 30 H 107/69 L 95 BiPAP 12/28/23 08:15 BiPAP 12/28/23 08:00 119 H 28 H 87/63 L 99 BiPAP 12/28/23 08:00 120 H 12/28/23 08:00 97.0 F L 12/28/23 07:00 BiPAP 12/28/23 06:02 12/28/23 06:00 96.8 F L 120 H 24 105/76 L 99 BiPAP 12/28/23 05:00 BiPAP 12/28/23 04:00 BiPAP 12/28/23 04:00 120 H 12/28/23 04:00 96.4 F L 119 H 27 H 113/70 96 Nasal Cannula 12/28/23 03:00 Nasal Cannula 12/28/23 02:00 125 H 31 H 108/76 L 98 Nasal Cannula 12/28/23 01:00 Nasal Cannula 12/28/23 00:00 120 H 12/28/23 00:00 123 H 30 H 148/68 H 100 Nasal Cannula 12/27/23 23:00 Nasal Cannula 12/27/23 22:01 112 H 12/27/23 22:01 114 H 12/27/23 22:01 100 Room Air 12/27/23 22:00 98.9 F 112 H 21 108/73 L 100 Nasal Cannula, Simple Mask 12/27/23 21:00 Nasal Cannula 12/27/23 20:00 120 H 12/27/23 20:00 98.9 F 12/27/23 18:58 114 H 12/27/23 18:58 113 H 12/27/23 18:58 92 L Nasal Cannula 12/27/23 18:26 Nasal Cannula 12/27/23 18:00 106 H 24 119/79 100 Nasal Cannula 12/27/23 16:58 Nasal Cannula 12/27/23 16:00 Nasal Cannula 12/27/23 16:00 120 H 12/27/23 16:00 98.3 F 118 H 26 H 125/82 100 Nasal Cannula O2 Flow Rate FiO2 12/28/23 14:00 12/28/23 13:00 12/28/23 12:00 12/28/23 12:00 12/28/23 11:00 12/28/23 10:30 12/28/23 10:30 12/28/23 10:30 60 12/28/23 10:00 12/28/23 09:05 12/28/23 08:45 12/28/23 08:15 12/28/23 08:00 12/28/23 08:00 12/28/23 08:00 12/28/23 07:00 12/28/23 06:02 60 12/28/23 06:00 80 12/28/23 05:00 12/28/23 04:00 12/28/23 04:00 12/28/23 04:00 3 12/28/23 03:00 3 12/28/23 02:00 3 12/28/23 01:00 3 12/28/23 00:00 12/28/23 00:00 3 12/27/23 23:00 3 12/27/23 22:01 12/27/23 22:01 12/27/23 22:01 3 12/27/23 22:00 3 12/27/23 21:00 3 12/27/23 20:00 12/27/23 20:00 12/27/23 18:58 12/27/23 18:58 12/27/23 18:58 3 12/27/23 18:26 3 12/27/23 18:00 3 12/27/23 16:58 3 12/27/23 16:00 3 12/27/23 16:00 12/27/23 16:00 3 Intake and Output 12/27/23 12/28/23 12/28/23 23:59 07:59 15:59 Intake Total 360 / 1645 375 / 425 50 / 425 Output Total 150 / 150 Balance 360 / -655 225 / 275 50 / 275 Intake: Intake, Oral Amount 360 / 1145 125 / 125 Intake, Total IV Amount 250 / 300 50 / 300 Azithromycin 500 mg In 0.9 % 250 / 250 Sodium Chloride 250 ml @ 250 mls/hr IV 2100 [facility] Rx#:[id number] Ceftriaxone Sodium 1 gm In 0.9 50 / 50 % Sodium Chloride 50 ml @ 100 mls/hr IV 0900 [facility] Rx#:[id number] Output: Output, Urine Amount 150 / 150 Other: Number of Unmeasured Voids 1 Weight 39.417 kg Patient Weight 12/28/23 23:59 Weight 39.417 kg Laboratory Results - last 24 hr 12/28/23 04:40: VBG pH 7.21 L, VBG pCO2 83.2 H, VBG pO2 75.6 H, VBG HCO3 32.2 H, VBG Total CO2 34.8 H, VBG O2 Saturation 94.8 H, VBG Base Excess 4.3 H, VBG Lactic Acid 1.9 12/28/23 05:25: WBC 15.3 H D, RBC 4.43, Hgb 14.8 D, Hct 50.4 H, MCV 113.9 H, MCH 33.2 H, MCHC 29.2 L, RDW 13.1, Plt Count 334 D, MPV 8.2, Neut % (Auto) 90.2 H, Lymph % (Auto) 3.9 L, Mercer % (Auto) 4.9, Eos % (Auto) 0.5, Baso % (Auto) 0.4, Neut # (Auto) 13.8 H, Lymph # (Auto) 0.6 L, Mercer # (Auto) 0.8, Eos # (Auto) 0.1, Baso # (Auto) 0.1, Total Counted 100, Neutrophils % (Manual) 94 H, Lymphocytes % (Manual) 6 L, Nucleated RBCs 1, Platelet Estimate Not Reportable, RBC Morphology Normal, Stomatocytes 1+, Sodium 149 H, Potassium 3.5, Chloride 107, Carbon Dioxide 35 H, Anion Gap 10.5, BUN 36 H D, Creatinine 0.80, Estimated Creat Clear 35, Estimated GFR 72, Est GFR ( Amer) 87, Glucose 185 H D, Calcium 9.0, Magnesium 2.4 H, C-Reactive Protein 40.3 H D, Procalcitonin 0.641 12/28/23 12:00: VBG pH 7.38, VBG pCO2 49.6, VBG pO2 107.2 H, VBG HCO3 28.9, VBG Total CO2 30.5 H, VBG O2 Saturation 98.6 H, VBG Base Excess 3.9 H, VBG Lactic Acid 1.3 I & O for Labs for Last 24 Hours: Intake & Output 12/25/23 12/26/23 12/27/23 12/28/23 23:59 23:59 23:59 23:59 Intake Total 3130 / 3380 1270 / 1645 425 / 425 Output Total 200 / 300 2150 / 2300 150 / 150 Balance 2930 / 3080 -880 / -655 275 / 275 Weight 37.648 kg 37.64 kg 39.417 kg 39.417 kg Microbiology Reports for the Last 24 Hours: Microbiology 12/25/23 19:35 Blood Blood Culture - Preliminary NO GROWTH AFTER 48 HOURS 12/25/23 19:30 Blood Blood Culture - Preliminary NO GROWTH AFTER 48 HOURS 12/28/2023 portable chest x-ray: Done with radiology read pending Ordering Physician: Cruz Ash MD Date of Service: 12/26/23 Procedure(s): XR chest portable Accession Number(s): [id number] cc: Myke De La Cruz MD; Provider,Referral ~ PROCEDURE INFORMATION: Exam: XR Chest Exam date and time: 12/26/2023 4:18 AM Age: 63 years old Clinical indication: Shortness of breath; Additional info: Increased SOB TECHNIQUE: Imaging protocol: Radiologic exam of the chest. Views: 1 view. COMPARISON: No relevant prior studies available. FINDINGS: Lungs: Chronic interstitial changes and hyperinflation. No focal infiltrates identified. Pleural spaces: Unremarkable. No pleural effusion. No pneumothorax. Heart/Mediastinum: Unremarkable. No cardiomegaly. Bones/joints: Unremarkable. IMPRESSION: No acute process noted. Underlying COPD. ENT: Present normal exam and normal oropharynx Neck: Present normal inspection and full ROM Respiratory: Present distant breath sounds and diminished air movement Cardiac: Present Reg Rate and Rhythm and Regular Rate GI: Present soft and normal bowel sounds Extremities: Present normal inspection and normal capillary refill Skin: Present intact and dry Assessment and Plan *Assessment and plan (1) Sepsis: Status: Acute Category: Medical Code(s): A41.9 - Sepsis, unspecified organism (2) Acute exacerbation of chronic obstructive pulmonary disease: Status: Acute Category: Medical Code(s): J44.1 - Chronic obstructive pulmonary disease with (acute) exacerbation (3) Pneumonia: Status: Acute Category: Medical Code(s): J18.9 - Pneumonia, unspecified organism (4) Acute respiratory distress: Status: Acute Category: Medical Code(s): R06.03 - Acute respiratory distress (5) Acute on chronic respiratory failure with hypoxia and hypercapnia: Status: Acute Category: Medical Code(s): J96.21 - Acute and chronic respiratory failure with hypoxia; J96.22 - Acute and chronic respiratory failure with hypercapnia Plan 63-year-old COPD patient who still smokes who presented with respiratory failure. Patient currently being treated for respiratory distress secondary to sepsis causing COPD exacerbation. Patient also suffers from chronic weight loss secondary to severe protein caloric malnutrition. # COPD exacerbation secondary to parainfluenza and possibly bacterial sepsis: ?12/27 patient had renewed respiratory distress and placed back on BiPAP today. Patient will likely require BiPAP nightly after hospital discharge. Appreciate pulmonology assistance! continue current care. ?12/26 increase Solu-Medrol to 40 IV every 6. Patient weaned from BiPAP overnight. Continue nebulization treatments, supplemental oxygen and wean as tolerated. Patient has agreed to stop smoking. ?12/26 continue current management. Patient improving on antibiotic therapy. Procalcitonin trending upwards while CRP trending downwards. Patient currently without leukocytosis or fever. - 12/25 Continue broad spectrum abx with azithromycin and Rocephin. Patient initially was given vancomycin and cefepime, will scale back to Rocephin and azithromycin. Monitor inflammatory markers elevated #Acute respiratory failure with hypoxia and hypercapnia -12/25 resp panel positive for parainfluenza. ?12/25 continue nebulization treatments, glucocorticoids, wean from BiPAP as tolerated, appreciate pulmonology assistance! Continue antibiotics. Spent over 15 minutes at bedside explaining to both patient and patient's that patient should stop smoking. ?Lactic acid negative but fluid sepsis bolus given in emergency room. #Tobacco use disorder ?12/26 patient has agreed to quit smoking. Continue nicotine patches. Complicating respiratory system at this time #Cachexia #Severe protein calorie malnutrition ?12/25 would recommend GI outpatient follow-up for chronic weight loss issue. Has been reports approximately 60 pound weight loss over the last couple years Initiate high-protein diet with boost supplementation DVT PPx Lovenox, reduced dose given cachexia FEN: 12/25 on clears, advance to regular diet 12/26 once patient weaned off BiPAP CODE STATUS: Full Disposition: ?12/27 patient replaced on BiPAP this a.m. due to respiratory distress. Will maintain patient in stepdown status for now. ?12/26 keep patient in stepdown since patient just weaned from BiPAP yesterday. Will likely downgrade patient from stepdown to MedSurg within next 24 hours if patient continues clinical improvement. 35 minutes of critical care time spent on patient by Dr. Ash 12/28/2023
[2023-12-28] MEDS: LORazepam 0.5MG TABLET 0.5 MG PO (17:13)
[2023-12-28] MEDS: AZITHROMYCIN 500 MG in 0.9 % SODIUM CHLORIDE 250 ML 250 MG IV (20:59)
[2023-12-28] MEDS: TRAZODONE 50MG TABLET 100 MG PO (21:00)
[2023-12-28] MEDS: MIRTAZAPINE 15 MG TABLET 30 MG PO (21:01)
[2023-12-28] MEDS: ATORVASTATIN 40MG TABLET 40 MG PO (21:01)
[2023-12-28] MEDS: ROPINIROLE 1MG TABLET 1 MG PO (21:02)
[2023-12-29] VITALS (19 sets, daily range): BP systolic 86–123; BP diastolic 57–82; PULSE 90–120; RESP 16–28; TEMP 36.3; O2SAT 91–100; BMI 15.0
[2023-12-29] MEDS: IPRATROPIUM BROMIDE 0.5 MG/2.5ML SOLUTION IH ×5 (01:57→18:30)
[2023-12-29] MEDS: LEVALBUTEROL 0.63MG/3ML NEB 0.63 MG IH ×5 (01:58→18:30)
[2023-12-29] MEDS: OXYCODONE 7.5MG W/APAP 325MG TABLET 1 EACH PO ×2 (03:04→14:43)
--- NOTE | 2023-12-29 04:57 | PC.NURSE ---
patient is alert and oriented, tolerating bipap with o2 sat >95%, patient complained of pain 10/14 and was medicated per jul with favorable result, bipap only removed to give patient PO meds, o2 sats remained >95% on 4L NC but patient's breathing quickly became labored without bipap, patient has been turned q2hrs, no other concerns voiced, is at bedside, call button is in reach, bed is in lowest position with wheels locked, bed alarm on and functioning for safety
[2023-12-29] MEDS: METHYLPREDNISOLONE SOD SUCC 40MG VIAL 40 MG IV ×4 (05:17→23:10)
[2023-12-29] MEDS: BUDESONIDE 0.5MG/2ML NEB 0.5 MG IH ×2 (06:11→18:30)
[2023-12-29] MEDS: SODIUM CHLORIDE 0.9% 500ML BAG 500 ML IV (06:58)
[2023-12-29 07:19] LABS: Basophils % 0.3 % (0.1-2.0); Hematocrit 44.2 % (37.0-47.0); Hemoglobin 13.1 g/dL (12.2-16.2); Lymphocytes % 10.8 % (10-50); Mean Corpuscular HGB Conc 29.7 g/dL (31.8-35.4); Mean Corpuscular Hemoglobin 32.9 pg (27.0-31.2); Mean Corpuscular Volume 110.7 fl (81-99); Mean Platelet Volume 8.6 fl (7.4-10.4); Monocytes # 0.6 K/mm3 (0.1-1.0); Monocytes % 6.8 % (1.7-9.3); Neutrophils # 7.4 K/mm3 (1.8-7.8); Platelet Count 282 K/mm3 (142-424); Red Blood Count 3.99 M/mm3 (4.20-5.40)
[2023-12-29 07:27] LABS: Blood Urea Nitrogen 36 mg/dl (7-17); Calcium 9.3 mg/dl (8.4-10.2); Chloride 109 mmol/L (98-107); Creatinine Clearance Estimated 32 mL/min (50-200); Estimated Glomerular Filt Rate 84 ml/min (>60); GFR (African American) 102 ML/MIN (>60); Glucose 153 mg/dl (74-100); Magnesium 2.6 mg/dl (1.6-2.3); Potassium 3.4 mmoL/L (3.5-5.1)
[2023-12-29 07:32] LABS: C-Reactive Protein 74.5 mg/L (0-4)
[2023-12-29 07:34] LABS: Anion Gap 7.4 mEq/L (5-15); Carbon Dioxide 37 mmol/L (22.0-30.0)
[2023-12-29 07:41] LABS: Sodium 150 mmol/L (136-145)
--- NOTE | 2023-12-29 07:42 | PC.NURSE ---
attempted to call hospitalist to report critical sodium 150, no answer. Will call again
--- NOTE | 2023-12-29 08:48 | PC.NURSE ---
Dr. kerr notified of sodium 150 as well as bp 94/71 and need for bolus overnight due to low blood pressures and patient not eating or drinking fluids. Dr. Kerr still wants po lasix given this am
[2023-12-29] MEDS: CEFTRIAXONE SODIUM 1 GM in 0.9 % SODIUM CHLORIDE 50 ML IV (09:05)
[2023-12-29] MEDS: FUROSEMIDE 40 MG TABLET PO (09:09)
[2023-12-29] MEDS: lamoTRIgine 100MG TABLET 150 MG PO ×2 (09:09→20:40)
[2023-12-29] MEDS: ENOXAPARIN 40MG/0.4ML SYRINGE 40 MG SQ (09:09)
[2023-12-29] MEDS: POTASSIUM CHLORIDE 20MEQ TAB 20 MEQ PO (09:09)
[2023-12-29] MEDS: SERTRALINE 100MG TABLET 200 MG PO (09:09)
--- NOTE | 2023-12-29 09:39 | P.PN_ITS ---
Subjective *Date: 12/29/23 *Time: 09:39 Medical Exam Vital signs and Labs for Last 24 Hours: Vital Signs Temp Pulse Pulse Resp BP Pulse Ox O2 Del Method 12/29/23 08:00 97.3 F L 12/29/23 06:38 BiPAP 12/29/23 06:12 98 H 12/29/23 06:12 95 H 12/29/23 06:12 93 L BiPAP 12/29/23 06:12 12/29/23 06:00 96 H 17 87/61 L 99 BiPAP 12/29/23 05:00 BiPAP 12/29/23 04:00 100 H 12/29/23 04:00 97 BiPAP 12/29/23 04:00 92 H 16 88/61 L 97 BiPAP 12/29/23 03:00 BiPAP 12/29/23 02:00 106 H 25 H 105/72 L 98 BiPAP 12/29/23 01:58 114 H 12/29/23 01:58 112 H 12/29/23 01:58 100 BiPAP 12/29/23 01:58 12/29/23 01:00 BiPAP 12/29/23 00:00 109 H 24 92/64 L 96 BiPAP 12/29/23 00:00 110 H 12/28/23 23:00 BiPAP 12/28/23 22:00 117 H 25 H 90/64 L 98 BiPAP 12/28/23 21:40 114 H 12/28/23 21:40 114 H 12/28/23 21:40 99 BiPAP 12/28/23 21:40 12/28/23 21:00 BiPAP 12/28/23 20:00 97.5 F L 117 H 28 H 91/61 L 96 BiPAP 12/28/23 20:00 98 BiPAP 12/28/23 20:00 120 H 12/28/23 19:15 BiPAP 12/28/23 18:00 108 H 12/28/23 18:00 106 H 12/28/23 18:00 95 BiPAP 12/28/23 18:00 12/28/23 17:05 Nasal Cannula 12/28/23 16:00 97.6 F 12/28/23 16:00 110 H 12/28/23 16:00 103 H 30 H 99/67 L 98 BiPAP 12/28/23 15:00 BiPAP 12/28/23 14:00 112 H 28 H 103/68 L 98 BiPAP 12/28/23 13:35 12/28/23 13:00 BiPAP 12/28/23 12:00 120 H 12/28/23 12:00 98.7 F 12/28/23 11:00 Room Air 12/28/23 10:30 130 H 12/28/23 10:30 129 H 12/28/23 10:30 12/28/23 10:00 70 28 H 96/64 L 97 BiPAP O2 Flow Rate FiO2 12/29/23 08:00 12/29/23 06:38 12/29/23 06:12 12/29/23 06:12 12/29/23 06:12 40 12/29/23 06:12 40 12/29/23 06:00 12/29/23 05:00 12/29/23 04:00 12/29/23 04:00 12/29/23 04:00 12/29/23 03:00 12/29/23 02:00 12/29/23 01:58 12/29/23 01:58 12/29/23 01:58 12/29/23 01:58 40 12/29/23 01:00 12/29/23 00:00 12/29/23 00:00 12/28/23 23:00 12/28/23 22:00 12/28/23 21:40 12/28/23 21:40 12/28/23 21:40 40 12/28/23 21:40 40 12/28/23 21:00 12/28/23 20:00 12/28/23 20:00 12/28/23 20:00 12/28/23 19:15 12/28/23 18:00 12/28/23 18:00 12/28/23 18:00 40 12/28/23 18:00 40 12/28/23 17:05 4 12/28/23 16:00 12/28/23 16:00 12/28/23 16:00 12/28/23 15:00 12/28/23 14:00 12/28/23 13:35 40 12/28/23 13:00 12/28/23 12:00 12/28/23 12:00 12/28/23 11:00 12/28/23 10:30 12/28/23 10:30 12/28/23 10:30 60 12/28/23 10:00 Intake and Output 12/28/23 12/29/23 12/29/23 23:59 07:59 15:59 Intake Total 370 / 370 Output Total 0 / 150 200 / 200 Balance 0 / 645 170 / 170 Intake: Intake, Oral Amount 120 / 120 Intake, Total IV Amount 250 / 250 Azithromycin 500 mg In 0.9 % 250 / 250 Sodium Chloride 250 ml @ 250 mls/hr IV 2100 [facility] Rx#:[id number] Output: Output, Urine Amount 0 / 150 200 / 200 Other: Number of Unmeasured Voids 1 0 Weight 36.287 kg Patient Weight 12/29/23 23:59 Weight 36.287 kg Laboratory Results - last 24 hr 12/28/23 12:00: VBG pH 7.38, VBG pCO2 49.6, VBG pO2 107.2 H, VBG HCO3 28.9, VBG Total CO2 30.5 H, VBG O2 Saturation 98.6 H, VBG Base Excess 3.9 H, VBG Lactic Acid 1.3 12/29/23 06:20: WBC 9.0 D, RBC 3.99 L, Hgb 13.1, Hct 44.2, MCV 110.7 H, MCH 32.9 H, MCHC 29.7 L, RDW 13.0, Plt Count 282, MPV 8.6, Neut % (Auto) 82.0 H, Lymph % (Auto) 10.8, Harlan % (Auto) 6.8, Eos % (Auto) 0.0 L, Baso % (Auto) 0.3, Neut # (Auto) 7.4, Lymph # (Auto) 1.0, Harlan # (Auto) 0.6, Eos # (Auto) 0.0, Baso # (Auto) 0.0, Sodium 150 H, Potassium 3.4 L, Chloride 109 H, Carbon Dioxide 37 H , Anion Gap 7.4, BUN 36 H, Creatinine 0.70, Estimated Creat Clear 32, Estimated GFR 84, Est GFR ( Amer) 102, Glucose 153 H, Calcium 9.3, Magnesium 2.6 H, C-Reactive Protein 74.5 H D, Procalcitonin 0.390 I & O for Labs for Last 24 Hours: Intake & Output 12/26/23 12/27/23 12/28/23 12/29/23 23:59 23:59 23:59 23:59 Intake Total 3130 / 3380 1270 / 1645 425 / 795 370 / 370 Output Total 200 / 300 2150 / 2300 150 / 150 200 / 200 Balance 2930 / 3080 -880 / -655 275 / 645 170 / 170 Weight 37.64 kg 39.417 kg 39.417 kg 36.287 kg The patient's infection will respond to the chosen ABx?: Yes (empiric therapy) Is the patient receiving the right drug, dose, and route?: Yes Could a more targeted ABx be ordered?: No (cultures show no growth)
--- NOTE | 2023-12-29 16:02 | P.PN_ITS ---
Subjective *Date: 12/29/23 *Time: 16:02 Interval history: seen at bedside, no complains of chest pain, no acute events overnight, seem comofrtable in bed Exam Data for Last 24 hours Vital signs and Labs for Last 24 Hours: Temp Pulse Resp BP Pulse Ox O2 Del Method O2 Flow Rate 97.3 F L 107 H 26 H 111/74 93 L Nasal Cannula 4 12/29/23 08:00 12/29/23 14:02 12/29/23 14:00 12/29/23 14:00 12/29/23 14:02 12/29/23 15:53 12/29/23 15:53 FiO2 40 12/29/23 10:45 Laboratory Results - last 24 hr 12/29/23 06:20: WBC 9.0 D, RBC 3.99 L, Hgb 13.1, Hct 44.2, MCV 110.7 H, MCH 32.9 H, MCHC 29.7 L, RDW 13.0, Plt Count 282, MPV 8.6, Neut % (Auto) 82.0 H, Lymph % (Auto) 10.8, Morgan % (Auto) 6.8, Eos % (Auto) 0.0 L, Baso % (Auto) 0.3, Neut # (Auto) 7.4, Lymph # (Auto) 1.0, Morgan # (Auto) 0.6, Eos # (Auto) 0.0, Baso # (Auto) 0.0, Sodium 150 H, Potassium 3.4 L, Chloride 109 H, Carbon Dioxide 37 H , Anion Gap 7.4, BUN 36 H, Creatinine 0.70, Estimated Creat Clear 32, Estimated GFR 84, Est GFR ( Amer) 102, Glucose 153 H, Calcium 9.3, Magnesium 2.6 H, C-Reactive Protein 74.5 H D, Procalcitonin 0.390 I & O for Last 24 hours: Intake & Output 12/26/23 12/27/23 12/28/23 12/29/23 23:59 23:59 23:59 23:59 Intake Total 3130 / 3380 1270 / 1645 425 / 795 470 / 470 Output Total 200 / 300 2150 / 2300 150 / 150 200 / 200 Balance 2930 / 3080 -880 / -655 275 / 645 270 / 270 Weight 37.64 kg 39.417 kg 39.417 kg 36.287 kg Constitutional Constitutional: no acute distress *Routine HEENT Exam Head: Present normocephalic Eye: Present EOMI and PERRL ENT: Present mucous membranes moist *Routine Neck Exam Neck: Present supple; Absent lymphadenopathy *Routine Respiratory Exam Respiratory: Present distant breath sounds *Routine Cardiovascular Exam Cardiovascular: Present RRR *Routine Abdominal Exam Abdominal: Present soft and normoactive bowel sounds; Absent tenderness *Routine Extremities Exam Extremities: Absent cyanosis, clubbing or edema *Routine Skin Exam Skin: Present warm; Absent rash *Routine Neurological Exam Neurological: Present alert and oriented X3 Assessment and Plan *Assessment and plan (1) Sepsis: Status: Acute Category: Medical Code(s): A41.9 - Sepsis, unspecified organism (2) Acute exacerbation of chronic obstructive pulmonary disease: Status: Acute Category: Medical Code(s): J44.1 - Chronic obstructive pulmonary disease with (acute) exacerbation (3) Pneumonia: Status: Acute Category: Medical Code(s): J18.9 - Pneumonia, unspecified organism (4) Acute respiratory distress: Status: Acute Category: Medical Code(s): R06.03 - Acute respiratory distress (5) Acute on chronic respiratory failure with hypoxia and hypercapnia: Status: Acute Category: Medical Code(s): J96.21 - Acute and chronic respiratory failure with hypoxia; J96.22 - Acute and chronic respiratory failure with hypercapnia Plan 63-year-old COPD patient who still smokes who presented with respiratory failure. Patient currently being treated for respiratory distress secondary to sepsis causing COPD exacerbation. Patient also suffers from chronic weight loss secondary to severe protein caloric malnutrition. # COPD exacerbation secondary to parainfluenza and possibly bacterial sepsis: ?continue breathing treatments azithromycin o2 as needed on BIPAP continue lasix pulmonary is following #Tobacco use disorder ?12/26 patient has agreed to quit smoking. Continue nicotine patches. Complicating respiratory system at this time #Cachexia #Severe protein calorie malnutrition ?12/25 would recommend GI outpatient follow-up for chronic weight loss issue. Has been reports approximately 60 pound weight loss over the last couple years Initiate high-protein diet with boost supplementation DVT PPx Lovenox, reduced dose given cachexia FEN: 12/25 on clears, advance to regular diet 12/26 once patient weaned off BiPAP CODE STATUS: Full Disposition: still on BIPAP, discussed with family at bedside, continue to monitor in step down
--- NOTE | 2023-12-29 16:22 | PC.NURSE ---
VS stable. Patient able to tolerate 4LNC but still labored with breathing. Patient stated she was in generalized pain, restless. PRN pain medication and relief noted. Patient able to rest comfortably during the evening.
[2023-12-29] MEDS: ROPINIROLE 1MG TABLET 1 MG PO (20:41)
[2023-12-29] MEDS: ATORVASTATIN 40MG TABLET 40 MG PO (20:41)
[2023-12-29] MEDS: TRAZODONE 50MG TABLET 100 MG PO (20:41)
[2023-12-29] MEDS: AZITHROMYCIN 250MG TABLET 500 MG PO (20:41)
[2023-12-29] MEDS: MIRTAZAPINE 15 MG TABLET 30 MG PO (20:41)
[2023-12-29 22:57] LABS: ABG Base Excess 12.7 mmol/L (-2.4-2.3); ABG HCO3 36.6 mmhg (22.0-26.0); ABG Oxygen Saturation 99 % (90-100); ABG PH 7.45 mmol/L (7.35-7.45); ABG PO2 134.3 mmhg (80-100); ABG TCO2 38.2 mmhg (23-27)
[2023-12-29 22:58] LABS: Oxygen 40 %
[2023-12-29 22:59] LABS: Allen's Test Y; Source Right Radial; Vent Rate 16
[2023-12-29 23:00] LABS: ABG PCO2 53.5 mmhg (35.0-45.0)
[2023-12-29] MEDS: LORazepam 2MG/ML VIAL 0.5 MG IV (23:09)
[2023-12-30] VITALS (18 sets, daily range): BP systolic 91–141; BP diastolic 41–85; PULSE 102–127; RESP 16–30; TEMP 36.3–37.5; O2SAT 90–96; BMI 15.0
[2023-12-30] MEDS: OXYCODONE 7.5MG W/APAP 325MG TABLET 1 EACH PO (01:04)
[2023-12-30] MEDS: IPRATROPIUM BROMIDE 0.5 MG/2.5ML SOLUTION IH ×2 (01:40→05:58)
[2023-12-30] MEDS: LEVALBUTEROL 0.63MG/3ML NEB 0.63 MG IH ×2 (01:40→05:58)
[2023-12-30] MEDS: METHYLPREDNISOLONE SOD SUCC 40MG VIAL 40 MG IV ×4 (05:24→22:32)
--- NOTE | 2023-12-30 05:45 | PC.NURSE ---
this patient has not had a good shift. The patient has been extremely restless and unable to catch her breath. Provider was notified early in shift of this and an ABG was ordered, see results, patient was then medicated per jul. That medication helped for about an hour and then the patient became restless again, we got patient up to the chair and that seemed to help for a couple hours as the patient rested better. Then patient awoken and became restless again and was moved back to bed for a short time, before becoming restless again and wanting to go back to the chair. During movement to the chair the patient o2 saturations did drop quite significantly, patient did rebound but took her some time to do so. the patient was medicated per jul for pain. family has remained at bedside through the night.
[2023-12-30] MEDS: BUDESONIDE 0.5MG/2ML NEB 0.5 MG IH (05:58)
[2023-12-30] MEDS: LORazepam 2MG/ML VIAL 0.5 MG IV ×3 (06:38→21:51)
--- NOTE | 2023-12-30 06:51 | XR_ITS ---
PROCEDURE INFORMATION: Exam: XR Chest Exam date and time: 12/30/2023 6:57 AM Age: 63 years old Clinical indication: Shortness of breath; Additional info: SOB TECHNIQUE: Imaging protocol: Radiologic exam of the chest. Views: 1 view. COMPARISON: CR XR CHEST PORTABLE 12/27/2023 10:32 AM FINDINGS: Lungs: Hyperinflated lungs. No infiltrate or pleural effusion Pleural spaces: See Lungs finding. Heart/Mediastinum: Unremarkable. No cardiomegaly. Bones/joints: Unremarkable. IMPRESSION: Hyperinflated lungs. No acute process
[2023-12-30 07:23] LABS: Basophils % 0.4 % (0.1-2.0); Eosinophils % 0.1 % (0.1-12.0); Hematocrit 47.6 % (37.0-47.0); Hemoglobin 14.5 g/dL (12.2-16.2); Lymphocytes # 1.5 K/mm3 (0.7-4.5); Lymphocytes % 12.8 % (10-50); Mean Corpuscular HGB Conc 30.4 g/dL (31.8-35.4); Mean Corpuscular Hemoglobin 33.9 pg (27.0-31.2); Mean Corpuscular Volume 111.4 fl (81-99); Mean Platelet Volume 9.4 fl (7.4-10.4); Monocytes # 0.7 K/mm3 (0.1-1.0); Monocytes % 6.1 % (1.7-9.3); Neutrophils # 9.2 K/mm3 (1.8-7.8); Neutrophils % 80.6 % (37.0-80.0); Platelet Count 344 K/mm3 (142-424); Red Blood Count 4.28 M/mm3 (4.20-5.40); White Blood Count 11.5 K/mm3 (4.8-10.8)
[2023-12-30 07:31] LABS: Chloride 110 mmol/L (98-107); Potassium 3.8 mmoL/L (3.5-5.1)
[2023-12-30 07:34] LABS: Blood Urea Nitrogen 40 mg/dl (7-17); Calcium 9.4 mg/dl (8.4-10.2); Creatinine Clearance Estimated 32 mL/min (50-200); Estimated Glomerular Filt Rate 100 ml/min (>60); GFR (African American) 121 ML/MIN (>60); Glucose 147 mg/dl (74-100)
[2023-12-30 07:35] LABS: Magnesium 2.7 mg/dl (1.6-2.3)
[2023-12-30 07:39] LABS: C-Reactive Protein 98.7 mg/L (0-4)
[2023-12-30 07:42] LABS: Anion Gap 11.8 mEq/L (5-15); Carbon Dioxide 37 mmol/L (22.0-30.0)
[2023-12-30 07:49] LABS: Sodium 155 mmol/L (136-145)
--- NOTE | 2023-12-30 07:50 | PC.NURSE ---
attempted to call critical sodium level to hospitalist, no answer. Will call again
[2023-12-30 08:14] LABS: Procalcitonin 0.319 ng/mL (0.0-2.0)
[2023-12-30] MEDS: CEFTRIAXONE SODIUM 1 GM in 0.9 % SODIUM CHLORIDE 50 ML IV (09:57)
[2023-12-30] MEDS: ENOXAPARIN 30MG/0.3ML SYRINGE 30 MG SQ (09:58)
[2023-12-30] MEDS: MORPHINE 2MG/ML SYRINGE 0.5 MG IV ×2 (10:39→17:17)
[2023-12-30 11:06] LABS: ABG Base Excess 14.3 mmol/L (-2.4-2.3); ABG HCO3 39.4 mmhg (22.0-26.0); ABG Oxygen Saturation 97 % (90-100); ABG PH 7.38 mmol/L (7.35-7.45); ABG TCO2 41.5 mmhg (23-27)
[2023-12-30 11:07] LABS: Vent Rate 16
[2023-12-30 11:08] LABS: Allen's Test Patient Unable; Oxygen 40% Bipap 14/6 %; Source Right Radial
[2023-12-30 11:09] LABS: ABG PCO2 67.7 mmhg (35.0-45.0)
--- NOTE | 2023-12-30 15:27 | PC.NURSE ---
Patient up to chair during shift.Ativan given for restlessness and morphine given for pain and relief noted. Patient able to rest. Lung sounds diminished. Patient confused and unable to answer orientation questions but able to follow commands. VS stable.
--- NOTE | 2023-12-30 16:53 | P.PN_ITS ---
Subjective *Date: 12/30/23 *Time: 16:53 Interval history: seen at bedside, she was unresponsive in the morning likely due to narcotics, patient appears to be BIPAP dependent, she is alert awake Exam Data for Last 24 hours Vital signs and Labs for Last 24 Hours: Temp Pulse Resp BP Pulse Ox O2 Del Method O2 Flow Rate 97.5 F L 120 H 28 H 114/83 96 BiPAP 4 12/30/23 16:00 12/30/23 16:00 12/30/23 14:00 12/30/23 16:00 12/30/23 16:00 12/30/23 16:00 12/29/23 18:49 FiO2 40 12/30/23 13:11 Laboratory Results - last 24 hr 12/29/23 22:36: Specimen Source Right radial, O2 % 40, ABG pH 7.45, ABG pCO2 53.5 H, ABG pO2 134.3 H, ABG HCO3 36.6 H, ABG Total CO2 38.2 H, ABG O2 Saturation 99, ABG Base Excess 12.7 H, Anshu Test Y, Vent Rate 16 12/30/23 06:40: WBC 11.5 H D, RBC 4.28, Hgb 14.5, Hct 47.6 H, MCV 111.4 H, MCH 33.9 H, MCHC 30.4 L, RDW 13.0, Plt Count 344, MPV 9.4, Neut % (Auto) 80.6 H, Lymph % (Auto) 12.8, [place] % (Auto) 6.1, Eos % (Auto) 0.1, Baso % (Auto) 0.4, Neut # (Auto) 9.2 H, Lymph # (Auto) 1.5, [place] # (Auto) 0.7, Eos # (Auto) 0.0, Baso # (Auto) 0.0, Sodium 155 H*, Potassium 3.8, Chloride 110 H, Carbon Dioxide 37 H, Anion Gap 11.8, BUN 40 H, Creatinine 0.60, Estimated Creat Clear 32, Estimated GFR 100, Est GFR ( Amer) 121, Glucose 147 H, Calcium 9.4, Magnesium 2.7 H, C-Reactive Protein 98.7 H D, Procalcitonin 0.319 12/30/23 11:03: Specimen Source Right radial, O2 % 40% bipap 14/6, ABG pH 7.38, ABG pCO2 67.7 H, ABG pO2 96.0, ABG HCO3 39.4 H, ABG Total CO2 41.5 H, ABG O2 Saturation 97, ABG Base Excess 14.3 H, Anshu Test Patient unable, Vent Rate 16 I & O for Last 24 hours: Intake & Output 12/27/23 12/28/23 12/29/23 12/30/23 23:59 23:59 23:59 23:59 Intake Total 1270 / 1645 425 / 795 470 / 520 100 / 100 Output Total 2150 / 2300 150 / 150 450 / 450 0 / 0 Balance -880 / -655 275 / 645 20 / 70 100 / 100 Weight 39.417 kg 39.417 kg 36.287 kg 36.287 kg Microbiology Reports for the Last 24 Hours: Microbiology 12/25/23 19:35 Blood Blood Culture - Preliminary NO GROWTH AFTER 4 DAYS 12/25/23 19:30 Blood Blood Culture - Preliminary NO GROWTH AFTER 4 DAYS Constitutional Constitutional: no acute distress *Routine HEENT Exam Head: Present normocephalic Eye: Present EOMI and PERRL ENT: Present mucous membranes moist *Routine Neck Exam Neck: Present supple; Absent lymphadenopathy *Routine Respiratory Exam Respiratory: Present decreased breath sounds and distant breath sounds *Routine Cardiovascular Exam Cardiovascular: Present RRR *Routine Abdominal Exam Abdominal: Present soft and normoactive bowel sounds; Absent tenderness *Routine Extremities Exam Extremities: Absent cyanosis, clubbing or edema *Routine Skin Exam Skin: Present warm; Absent rash *Routine Neurological Exam Neurological: Present alert and oriented X3 Assessment and Plan *Assessment and plan (1) Sepsis: Status: Acute Category: Medical Code(s): A41.9 - Sepsis, unspecified organism (2) Acute exacerbation of chronic obstructive pulmonary disease: Status: Acute Category: Medical Code(s): J44.1 - Chronic obstructive pulmonary disease with (acute) exacerbation (3) Pneumonia: Status: Acute Category: Medical Code(s): J18.9 - Pneumonia, unspecified organism (4) Acute respiratory distress: Status: Acute Category: Medical Code(s): R06.03 - Acute respiratory distress (5) Acute on chronic respiratory failure with hypoxia and hypercapnia: Status: Acute Category: Medical Code(s): J96.21 - Acute and chronic respiratory failure with hypoxia; J96.22 - Acute and chronic respiratory failure with hypercapnia Plan 63-year-old COPD patient who still smokes who presented with respiratory failure. Patient currently being treated for respiratory distress secondary to sepsis causing COPD exacerbation. Patient also suffers from chronic weight loss secondary to severe protein caloric malnutrition. # COPD exacerbation secondary to parainfluenza and suspected PNA ?continue breathing treatments azithromycin, rocephin o2 as needed on BIPAP continue lasix pulmonary is following #Tobacco use disorder ?12/26 patient has agreed to quit smoking. Continue nicotine patches. Complicating respiratory system at this time #Cachexia #Severe protein calorie malnutrition ?12/25 would recommend GI outpatient follow-up for chronic weight loss issue. Has been reports approximately 60 pound weight loss over the last couple years Initiate high-protein diet with boost supplementation DVT PPx Lovenox, reduced dose given cachexia FEN: 12/25 on clears, advance to regular diet 12/26 once patient weaned off BiPAP CODE STATUS: Full Disposition: still on BIPAP discussed with family at bedside - patient is DNR and DNI per family continue to monitor in step down Poor prognosis, recommend comfort care approach
[2023-12-30] MEDS: AZITHROMYCIN 500 MG in 0.9 % SODIUM CHLORIDE 250 ML 250 MG IV (21:37)
[2023-12-31] VITALS (13 sets, daily range): BP systolic 91–132; BP diastolic 56–79; PULSE 77–112; RESP 16–28; TEMP 36.1–37.2; O2SAT 93–97; BMI 14.8
[2023-12-31] MEDS: DEXTROSE 5 % IN WATER 1,000 ML 75 ML IV (01:33)
--- NOTE | 2023-12-31 05:11 | PC.NURSE ---
Patient has rested much much better this shift. Was restless early on but was medicated per mar and has settled down tremendously compared to last shift this RN was with her. RN did attempted for patient to take her pills, but the patient was unable to follow the command of drinking or of eating pudding to take her pills. Provider was called and notified of this and her PO abx was switched to IV. Family is awaiting to see Pulmonology today and is anxious for pulmonology thoughts on her case. Provider was also notified about patient sodium level. Maintenance fluids were started. The patient is incontinent and has voided per brief. has remained at bedside.
[2023-12-31] MEDS: METHYLPREDNISOLONE SOD SUCC 40MG VIAL 40 MG IV ×2 (05:26→10:46)
[2023-12-31 06:44] LABS: Basophils # 0.1 K/mm3 (0-0.2); Basophils % 0.7 % (0.1-2.0); Eosinophils % 0.2 % (0.1-12.0); Hematocrit 47.8 % (37.0-47.0); Hemoglobin 14.1 g/dL (12.2-16.2); Lymphocytes # 1.3 K/mm3 (0.7-4.5); Lymphocytes % 15.1 % (10-50); Mean Corpuscular HGB Conc 29.6 g/dL (31.8-35.4); Mean Corpuscular Hemoglobin 33.5 pg (27.0-31.2); Mean Corpuscular Volume 113.2 fl (81-99); Monocytes # 0.5 K/mm3 (0.1-1.0); Monocytes % 5.7 % (1.7-9.3); Neutrophils # 6.9 K/mm3 (1.8-7.8); Neutrophils % 78.3 % (37.0-80.0); Platelet Count 309 K/mm3 (142-424); Red Blood Count 4.22 M/mm3 (4.20-5.40); Red Cell Distribution Width 13.2 % (11.5-17.5); White Blood Count 8.8 K/mm3 (4.8-10.8)
[2023-12-31 06:57] LABS: Chloride 118 mmol/L (98-107); Potassium 3.9 mmoL/L (3.5-5.1)
[2023-12-31 07:00] LABS: Anion Gap 12.9 mEq/L (5-15); Blood Urea Nitrogen 42 mg/dl (7-17); Calcium 9.2 mg/dl (8.4-10.2); Carbon Dioxide 32 mmol/L (22.0-30.0); Creatinine Clearance Estimated 32 mL/min (50-200); Estimated Glomerular Filt Rate 100 ml/min (>60); GFR (African American) 121 ML/MIN (>60); Glucose 164 mg/dl (74-100)
--- NOTE | 2023-12-31 07:06 | EXP.EVENT.NO ---
Called about sodium level of high 150s. Reviewed notes and patient already on D5W. Will continue D5W and check sodium levels every 6 hours x 4.
[2023-12-31 07:07] LABS: Sodium 159 mmol/L (136-145)
[2023-12-31] MEDS: CEFTRIAXONE SODIUM 1 GM in 0.9 % SODIUM CHLORIDE 50 ML IV (09:10)
[2023-12-31] MEDS: ENOXAPARIN 30MG/0.3ML SYRINGE 30 MG SQ (09:10)
[2023-12-31] MEDS: MORPHINE 2MG/ML SYRINGE 0.5 MG IV (09:23)
--- NOTE | 2023-12-31 10:22 | EXP.PULM.PN ---
Subjective *Date: 12/31/23 *Time: 12:14 Interval history: Patient continued to complain of respiratory distress with no significant improvement Pulmonology Exam Inpatient Vital signs and Labs for Last 24 Hours: Temp Pulse Resp BP Pulse Ox O2 Del Method O2 Flow Rate 97.5 F L 97 H 24 116/76 97 BiPAP 4 12/31/23 08:00 12/31/23 08:00 12/31/23 08:00 12/31/23 08:00 12/31/23 08:00 12/31/23 08:21 12/29/23 18:49 FiO2 40 12/31/23 06:09 Laboratory Results - last 24 hr 12/30/23 11:03: Specimen Source Right radial, O2 % 40% bipap 14/6, ABG pH 7.38, ABG pCO2 67.7 H, ABG pO2 96.0, ABG HCO3 39.4 H, ABG Total CO2 41.5 H, ABG O2 Saturation 97, ABG Base Excess 14.3 H, Anshu Test Patient unable, Vent Rate 16 12/31/23 06:05: WBC 8.8, RBC 4.22, Hgb 14.1, Hct 47.8 H, MCV 113.2 H, MCH 33.5 H, MCHC 29.6 L, RDW 13.2, Plt Count 309, MPV 9.0, Neut % (Auto) 78.3, Lymph % (Auto) 15.1, [place] % (Auto) 5.7, Eos % (Auto) 0.2, Baso % (Auto) 0.7, Neut # (Auto) 6.9, Lymph # (Auto) 1.3, [place] # (Auto) 0.5, Eos # (Auto) 0.0, Baso # (Auto) 0.1, Sodium 159 H*, Potassium 3.9, Chloride 118 H, Carbon Dioxide 32 H, Anion Gap 12.9, BUN 42 H, Creatinine 0.60, Estimated Creat Clear 32, Estimated GFR 100, Est GFR ( Amer) 121, Glucose 164 H, Calcium 9.2 Temp Pulse Resp BP Pulse Ox O2 Del Method O2 Flow Rate 99.7 F H 104 H 24 100/65 L 98 Room Air 3 12/26/23 08:00 12/26/23 08:00 12/26/23 08:00 12/26/23 08:00 12/26/23 08:00 12/26/23 08:09 12/26/23 04:00 FiO2 40 12/26/23 06:22 Laboratory Results - last 24 hr 12/25/23 19:26: VBG pH 7.38, VBG pCO2 50.9, VBG pO2 46.5 H, VBG HCO3 29.3, VBG Total CO2 30.9 H, VBG O2 Saturation 84.3 H, VBG Base Excess 4.1 H, VBG Lactic Acid 1.6 12/25/23 19:30: WBC 9.7, RBC 4.42, Hgb 14.6, Hct 47.5 H, MCV 107.5 H, MCH 33.0 H, MCHC 30.7 L, RDW 13.1, Plt Count 298, MPV 8.0, Neut % (Auto) 81.8 H, Lymph % (Auto) 10.0, [place] % (Auto) 6.4, Eos % (Auto) 0.4, Baso % (Auto) 1.3, Neut # (Auto) 7.9 H, Lymph # (Auto) 1.0, [place] # (Auto) 0.6, Eos # (Auto) 0.0, Baso # (Auto) 0.1, D-Dimer 0.49, Sodium 140, Potassium 3.3 L, Chloride 102, Carbon Dioxide 31 H, Anion Gap 10.3, BUN 14, Creatinine 0.60, Estimated Creat Clear 33, Estimated GFR 100, Est GFR ( Amer) 121, Glucose 123 H, Lactate 1.2, Calcium 10.3 H, Magnesium 1.4 L, Total Bilirubin 0.3, AST 40 H, ALT 25, Alkaline Phosphatase 85, Troponin I < 0.01, C-Reactive Protein 85.7 H, NT-Pro-B Natriuret Pep 186 H 12/25/23 19:30: NT-Pro-B Natriuret Pep 189 H, Total Protein 7.4, Albumin 4.1, Globulin 3.3 H, Albumin/Globulin Ratio 1.2, Procalcitonin 0.158 12/25/23 19:30: Procalcitonin 0.178 12/25/23 21:15: VBG pH 7.12 L, VBG pCO2 90.2 H, VBG pO2 106.9 H, VBG HCO3 28.6, VBG Total CO2 31.4 H, VBG O2 Saturation 96.5 H, VBG Base Excess -0.8, VBG Lactic Acid 1.5 12/25/23 22:30: Troponin I < 0.01 12/25/23 23:00: Specimen Source L radial, O2 % 40, ABG pH 7.17 L*, ABG pCO2 75.5 H, ABG pO2 121.9 H, ABG HCO3 27.0 H, ABG Total CO2 29.3 H, ABG O2 Saturation 98, ABG Base Excess -1.5, Anshu Test Acceptable, Vent Rate 24, Tidal Volume 18/8 12/26/23 01:00: VBG pH 7.24 L, VBG pCO2 67.0 H, VBG pO2 46.8 H, VBG HCO3 27.9, VBG Total CO2 30.0 H, VBG O2 Saturation 82.0 H, VBG Base Excess 0.5, VBG Lactic Acid 1.4 12/26/23 06:27: Specimen Source L radial, O2 % 40%, ABG pH 7.28 L, ABG pCO2 62.6 H, ABG pO2 117.8 H, ABG HCO3 28.9 H, ABG Total CO2 30.8 H, ABG O2 Saturation 98, ABG Base Excess 2.2, Anshu Test Acceptable, Tidal Volume 18/8 I & O for Labs for Last 24 Hours: Intake & Output 12/28/23 12/29/23 12/30/23 12/31/23 23:59 23:59 23:59 23:59 Intake Total 425 / 795 470 / 520 100 / 350 250 / 250 Output Total 150 / 150 450 / 450 0 / 0 0 / 0 Balance 275 / 645 20 / 70 100 / 350 250 / 250 Weight 86 lb 14.394 oz 80 lb 79 lb 15.986 oz 78 lb 8 oz Intake & Output 12/23/23 12/24/23 12/25/23 12/26/23 23:59 23:59 23:59 23:59 Intake Total 3080 / 3080 Output Total 200 / 200 Balance 2880 / 2880 Weight 83 lb 82 lb 15.994 oz Microbiology Reports for the Last 24 Hours: Microbiology 12/25/23 19:35 Blood Blood Culture - Final NO GROWTH AFTER 5 DAYS 12/25/23 19:30 Blood Blood Culture - Final NO GROWTH AFTER 5 DAYS Constitutional: Present severe distress Head: Present normocephalic and atraumatic ENT: Present normal exam, normal oropharynx and mucous membranes moist Neck: Present normal inspection and full ROM Respiratory: Present prolonged expiratory phase, respiratory distress and diminished air movement; Absent wheezes or able to speak in complete sentences Cardiac: Present S1/S2, Tachycardia and radial pulses present GI: Present soft and distention; Absent tenderness or guarding Rectal (female): Present deferred (female): Present deferred Skin: Present intact; Absent cyanosis or jaundice Neuro: Present alert and awake; Absent oriented x 3 Extremities: Present normal inspection; Absent clubbing or cyanosis Psychiatric: Present anxious Assessment and Plan *Assessment and plan (1) Acute exacerbation of chronic obstructive pulmonary disease: Status: Acute Category: Medical Code(s): J44.1 - Chronic obstructive pulmonary disease with (acute) exacerbation (2) Sepsis: Status: Acute Category: Medical Code(s): A41.9 - Sepsis, unspecified organism (3) Acute on chronic respiratory failure with hypoxia and hypercapnia: Status: Acute Category: Medical Code(s): J96.21 - Acute and chronic respiratory failure with hypoxia; J96.22 - Acute and chronic respiratory failure with hypercapnia (4) Pneumonia: Status: Acute Category: Medical Code(s): J18.9 - Pneumonia, unspecified organism Plan Ms. Mccrary is a 63-year-old female current smoker greater than [id number] smoking history last seen in pulmonary clinic in October 2021, very severe COPD FEV1 at 26% predicted with significant reversibility, multiple pulmonary nodules presented to ER with worsening respiratory distress admitted for COPD exacerbation hypercarbic respiratory failure needing noninvasive ventilator therapy and pulmonary was called for further evaluation and management. Patient also due for 9-month follow-up CT chest on her last clinic visit, lost to follow-up. Labs on admission reviewed, no evidence of significant leukocytosis. Hypercarbic respiratory failure with a pH of 7.17 with a pCO2 of 75.5. Slightly improved from this morning at a pH of 7.27 with a pCO2 of 62.6. Chest x-ray from this morning no acute airspace disease/consolidation is noted. Hyperinflated lungs noted. No acute change compared to chest x-ray from admission. Currently receiving nebulization therapies azithromycin and methylprednisolone. cho normal EF at 55%. Diastolic dysfunction. RV moderately dilated. Along with mild to moderate hypokinesis noted. No intra or atrial shunt noted. Inadequate TR to measure RVSP. Small Pericardial effusion noted. On initial examination patient obtunded responding to painful stimuli. As per the family, patient continued to smoke. Using inhalers. Do not have access to nebulization therapies. Continued worsening respiratory status for the last 3 to 4 weeks progressively getting worse. Patient respiratory distress and hypercarbic respiratory failure gradually improving but however patient continued to have intermittent panic episodes were initially thought to be an ablation therapies however did not resolve despite changing her nebulization therapy to Xopenex/Trelegy inhaler. Patient family opted to discuss further plan of care with hospice at this point of time. Interval update: No acute respiratory events over the weekend. Continue intermittent panic episodes. Chest x-ray over the weekend no new airspace disease/consolidative changes noted. Stable from prior with new small bilateral pleural effusions. Blood cultures no growth 5 days. No sputum cultures available. Changed to Trelegy 100 inhaler along with DuoNebs as needed. Plan: Continue BiPAP therapy, 10/18 with a respiratory rate of 16 and FiO2 40% while asleep/nights for her chronic hypercarbic respiratory failure likely secondary to COPD Continue oxygen supplementation to maintain O2 saturation goal of 90 to 95% during the daytime and 3 to 4 L. Continue ceftriaxone azithromycin pending culture results to complete a total of 5-day course Continue Xopenex and ipratropium every 6 hours along with Pulmicort Q12 scheduled. Recommend to wean steroids prednisone 40 mg daily x 7 days followed by 20 mg daily x 7 days # Thank you for involving pulmonary in this patient care. Will continue to follow.
[2023-12-31] MEDS: LORazepam 2MG/ML VIAL 0.5 MG IV ×2 (11:37→13:54)
--- NOTE | 2023-12-31 11:39 | SW/DCPLANNER ---
Addendum entered by Luci Coels 12/31/23 14:05: Ella alfaro/ [facility] onsite speaking w/ patient and family. Family plans to take patient home tomorrow 12/31 and begin Hospice services. I have updated Dr Ash. Original Note: and myself had a discussion w/ patient and family regarding Hospice services. Patient voiced that she is agreeable to Hospice consult. Patient information has been faxed to Ella alfaro/ [facility]. I will follow up w/ Ella once information is reviewed.
--- NOTE | 2023-12-31 12:02 | DIET.NUTRFU ---
Patient continues to be NPO secondary to BiPap tx, since 12/26. Rounded with IDT time and does not want patient intubated and wants to meet with hospice. On 12/30 she had difficulty following commands to take/swallow pills. Will follow comfort care requests.
[2023-12-31] MEDS: MORPHINE 2MG/ML SYRINGE 2 MG IV ×4 (12:29→23:33)
--- NOTE | 2023-12-31 12:48 | P.PN_ITS ---
Subjective *Date: 12/31/23 *Time: 13:01 Medical Exam Vital signs and Labs for Last 24 Hours: Vital Signs Temp Pulse Pulse Resp BP Pulse Ox O2 Del Method 12/31/23 12:00 98.3 F 12/31/23 12:00 112 H 24 132/70 93 L Venturi Mask 12/31/23 11:00 Venturi Mask 12/31/23 10:00 82 18 109/71 L 93 L BiPAP 12/31/23 08:21 BiPAP 12/31/23 08:00 100 H 12/31/23 08:00 BiPAP 12/31/23 08:00 97.5 F L 12/31/23 08:00 97 H 24 116/76 97 BiPAP 12/31/23 08:00 BiPAP 12/31/23 07:00 BiPAP 12/31/23 06:09 12/31/23 06:00 96 H 28 H 113/79 95 BiPAP 12/31/23 05:00 BiPAP 12/31/23 04:00 93 H 12/31/23 04:00 99.0 F 12/31/23 04:00 92 H 26 H 96/73 L 96 BiPAP 12/31/23 04:00 BiPAP 12/31/23 03:06 12/31/23 02:58 BiPAP 12/31/23 02:00 98 H 26 H 102/69 L 95 BiPAP 12/31/23 01:00 Room Air 12/31/23 00:05 12/31/23 00:00 100 H 12/31/23 00:00 99 H 26 H 103/70 L 95 BiPAP 12/31/23 00:00 98.1 F 12/30/23 23:00 BiPAP 12/30/23 22:00 106 H 28 H 102/73 L 95 BiPAP 12/30/23 21:00 BiPAP 12/30/23 20:00 BiPAP 12/30/23 20:00 112 H 12/30/23 20:00 98.0 F 12/30/23 20:00 98.0 F 109 H 28 H 104/68 L 96 CPAP 12/30/23 18:54 12/30/23 18:51 BiPAP 12/30/23 18:00 119 H 28 H 112/81 96 BiPAP 12/30/23 17:05 BiPAP 12/30/23 16:10 BiPAP 12/30/23 16:00 97.5 F L 12/30/23 16:00 120 H 114/83 96 BiPAP 12/30/23 15:00 BiPAP 12/30/23 14:00 127 H 28 H 141/85 H BiPAP 12/30/23 13:11 12/30/23 13:00 BiPAP FiO2 12/31/23 12:00 12/31/23 12:00 12/31/23 11:00 12/31/23 10:00 12/31/23 08:21 12/31/23 08:00 12/31/23 08:00 12/31/23 08:00 12/31/23 08:00 12/31/23 08:00 12/31/23 07:00 12/31/23 06:09 40 12/31/23 06:00 12/31/23 05:00 12/31/23 04:00 12/31/23 04:00 12/31/23 04:00 12/31/23 04:00 12/31/23 03:06 40 12/31/23 02:58 12/31/23 02:00 12/31/23 01:00 12/31/23 00:05 40 12/31/23 00:00 12/31/23 00:00 12/31/23 00:00 12/30/23 23:00 12/30/23 22:00 12/30/23 21:00 12/30/23 20:00 12/30/23 20:00 12/30/23 20:00 12/30/23 20:00 12/30/23 18:54 40 12/30/23 18:51 12/30/23 18:00 12/30/23 17:05 12/30/23 16:10 12/30/23 16:00 12/30/23 16:00 12/30/23 15:00 12/30/23 14:00 12/30/23 13:11 40 12/30/23 13:00 Intake and Output 12/30/23 12/31/23 12/31/23 23:59 07:59 15:59 Intake Total 250 / 250 Output Total 0 / 0 0 / 0 Balance 0 / 350 250 / 250 Intake: Intake, Oral Amount 0 / 0 Intake, Total IV Amount 250 / 250 Azithromycin 500 mg In 0.9 % 250 / 250 Sodium Chloride 250 ml @ 250 mls/hr IV [facility] Rx#:[id number] Output: Output, Urine Amount 0 / 0 0 / 0 Other: Number of Unmeasured Voids 1 1 Weight 35.607 kg Patient Weight 12/31/23 23:59 Weight 35.607 kg Laboratory Results - last 24 hr 12/31/23 06:05: WBC 8.8, RBC 4.22, Hgb 14.1, Hct 47.8 H, MCV 113.2 H, MCH 33.5 H , MCHC 29.6 L, RDW 13.2, Plt Count 309, MPV 9.0, Neut % (Auto) 78.3, Lymph % (Auto) 15.1, [place] % (Auto) 5.7, Eos % (Auto) 0.2, Baso % (Auto) 0.7, Neut # (Auto) 6.9, Lymph # (Auto) 1.3, [place] # (Auto) 0.5, Eos # (Auto) 0.0, Baso # (Auto) 0.1, Sodium 159 H*, Potassium 3.9, Chloride 118 H, Carbon Dioxide 32 H, Anion Gap 12.9, BUN 42 H, Creatinine 0.60, Estimated Creat Clear 32, Estimated GFR 100, Est GFR ( Amer) 121, Glucose 164 H, Calcium 9.2 I & O for Labs for Last 24 Hours: Intake & Output 12/28/23 12/29/23 12/30/23 12/31/23 23:59 23:59 23:59 23:59 Intake Total 425 / 795 470 / 520 100 / 350 250 / 250 Output Total 150 / 150 450 / 450 0 / 0 0 / 0 Balance 275 / 645 20 / 70 100 / 350 250 / 250 Weight 39.417 kg 36.287 kg 36.287 kg 35.607 kg Microbiology Reports for the Last 24 Hours: Microbiology 12/25/23 19:35 Blood Blood Culture - Final NO GROWTH AFTER 5 DAYS 12/25/23 19:30 Blood Blood Culture - Final NO GROWTH AFTER 5 DAYS Radiology Reports for the Last 24 Hours: PROCEDURE INFORMATION: Exam: XR Chest Exam date and time: 12/30/2023 6:57 AM Age: 63 years old Clinical indication: Shortness of breath; Additional info: SOB TECHNIQUE: Imaging protocol: Radiologic exam of the chest. Views: 1 view. COMPARISON: CR XR CHEST PORTABLE 12/27/2023 10:32 AM FINDINGS: Lungs: Hyperinflated lungs. No infiltrate or pleural effusion Pleural spaces: See Lungs finding. Heart/Mediastinum: Unremarkable. No cardiomegaly. Bones/joints: Unremarkable. IMPRESSION: Hyperinflated lungs. No acute process 12/27/2023 echocardiogram Conclusion Normal LV systolic function. Moderate RV dilation with mild to moderate reduction in RV function. Mild biatrial dilation. No significant valvular stenosis or regurgitation. Small, anterior pericardial effusion. Largest pocket measures 0.5 cm in diastole. No echo indications of tamponade. 12/28/2023 portable chest x-ray: Done with radiology read pending Ordering Physician: Cruz Ash MD Date of Service: 12/26/23 Procedure(s): XR chest portable Accession Number(s): [id number] cc: Myke De La Cruz MD; Provider,Referral ~ PROCEDURE INFORMATION: Exam: XR Chest Exam date and time: 12/26/2023 4:18 AM Age: 63 years old Clinical indication: Shortness of breath; Additional info: Increased SOB TECHNIQUE: Imaging protocol: Radiologic exam of the chest. Views: 1 view. COMPARISON: No relevant prior studies available. FINDINGS: Lungs: Chronic interstitial changes and hyperinflation. No focal infiltrates identified. Pleural spaces: Unremarkable. No pleural effusion. No pneumothorax. Heart/Mediastinum: Unremarkable. No cardiomegaly. Bones/joints: Unremarkable. IMPRESSION: No acute process noted. Underlying COPD. ENT: Present normal exam and normal oropharynx Neck: Present normal inspection and full ROM Respiratory: Present distant breath sounds and diminished air movement Cardiac: Present Reg Rate and Rhythm and Regular Rate GI: Present soft and normal bowel sounds Extremities: Present normal inspection and normal capillary refill Skin: Present intact and dry Assessment and Plan *Assessment and plan (1) Sepsis: Status: Acute Category: Medical Code(s): A41.9 - Sepsis, unspecified organism (2) Acute respiratory distress: Status: Acute Category: Medical Code(s): R06.03 - Acute respiratory distress (3) Acute on chronic respiratory failure with hypoxia and hypercapnia: Status: Acute Category: Medical Code(s): J96.21 - Acute and chronic respiratory failure with hypoxia; J96.22 - Acute and chronic respiratory failure with hypercapnia (4) Tobacco abuse disorder: Status: Chronic Category: Medical Code(s): Z72.0 - Tobacco use (5) Multiple pulmonary nodules: Status: Chronic Category: Medical Code(s): R91.8 - Other nonspecific abnormal finding of lung field (6) Smoking greater than 30 pack years: Status: Chronic Category: Social Hx Code(s): F17.210 - Nicotine dependence, cigarettes, uncomplicated (7) Acute exacerbation of chronic obstructive pulmonary disease: Status: Acute Category: Medical Code(s): J44.1 - Chronic obstructive pulmonary disease with (acute) exacerbation Plan 63-year-old COPD patient who still smokes who presented with respiratory failur e. Patient currently being treated for respiratory distress secondary to sepsis causing COPD exacerbation. Patient also suffers from chronic weight loss secondary to severe protein caloric malnutrition. 12/29 Goals of care discussion occurred at bedside between patient, patient's , and Dr. Ash. Patient and have agreed to DNR/DNI status and comfort care. Hospice consultation placed 12/29. # COPD exacerbation secondary to parainfluenza and possibly bacterial sepsis: ?12/29 goals of care discussion occurred today at bedside and patient now DNR/DNI. Hospice consultation in progress. Will discontinue heroic medications, and initiate comfort care measures including IV morphine/Ativan. ?12/27 patient had renewed respiratory distress and placed back on BiPAP today. Patient will likely require BiPAP nightly after hospital discharge. Appreciate pulmonology assistance! continue current care. ?12/26 increase Solu-Medrol to 40 IV every 6. Patient weaned from BiPAP overnight. Continue nebulization treatments, supplemental oxygen and wean as tolerated. Patient has agreed to stop smoking. ?12/26 continue current management. Patient improving on antibiotic therapy. Procalcitonin trending upwards while CRP trending downwards. Patient currently without leukocytosis or fever. - 12/25 Continue broad spectrum abx with azithromycin and Rocephin. Patient initially was given vancomycin and cefepime, will scale back to Rocephin and azithromycin. Monitor inflammatory markers elevated #Acute respiratory failure with hypoxia and hypercapnia -12/25 resp panel positive for parainfluenza. ?12/25 continue nebulization treatments, glucocorticoids, wean from BiPAP as tolerated, appreciate pulmonology assistance! Continue antibiotics. Spent over 15 minutes at bedside explaining to both patient and patient's that patient should stop smoking. ?Lactic acid negative but fluid sepsis bolus given in emergency room. Hyponatremia due to dehydration: ? Patient's sodium level 159 this a.m. Recheck sodium levels, and patient on D5W at 75 cc/h since early this a.m. #Tobacco use disorder ?12/26 patient has agreed to quit smoking. Continue nicotine patches. Complicating respiratory system at this time #Cachexia #Severe protein calorie malnutrition ?12/25 would recommend GI outpatient follow-up for chronic weight loss issue. Has been reports approximately 60 pound weight loss over the last couple years Initiate high-protein diet with boost supplementation DVT PPx Lovenox, reduced dose given cachexia FEN: 12/25 on clears, advance to regular diet 12/26 once patient weaned off BiPAP CODE STATUS: Full Disposition: ?12/29 patient now on hospice comfort care DNR/DNI per goals of care discussion occurring today. Will withdrawal heroic measures per hospice/family advised. Without rapid clinical improvement, expect patient will within next 96 hours. ?12/27 patient replaced on BiPAP this a.m. due to respiratory distress. Will maintain patient in stepdown status for now. ?12/26 keep patient in stepdown since patient just weaned from BiPAP yesterday. Will likely downgrade patient from stepdown to MedSurg within next 24 hours if patient continues clinical improvement.
--- NOTE | 2023-12-31 14:12 | PC.NURSE ---
THIS MORNING PT WAS ON THE BIPAP AND VERY UNCOMFORTABLE IN THE BED. FAMILY STATED THIS MORNING THEY DID NOT WANT PT TO BE MISERABLE AND THEY DO NOT THINK IT WOULD GIVE PT ANY KIND OF COMFORT BEING ON THE VENTILATOR. PT WAS ABLE TO TOLERATE COMING OFF BIPAP AND SWITCHED OVER TO 4 L NC FOR 15 MIN. WHICH WAS DURING MORNING ROUNDS WITH THE PHYSICIAN AND CARE TEAM TO DISCUSS GOALS OF CARE. PT AND PT'S FAMILY WERE ALL AGREEABLE TO DNR/DNI STATUS AND WANTED HOSPICE CONSULTED. AFTER 15 MIN PT BECAME INCREASINGLY ANXIOUS AND STATED SHE WAS NOT GETTING ENOUGH AIR AND REQUESTED TO GO BACK ON BIPAP. AT BEDSIDE AND ORDERED FOR PT TO BE PUT ON THE VENTI MASK 40%. PT HAS TOLERATED VENTI MASK WITH O2 SATURATION MAINTAINING 90-93%. MEDICATED PER MAR FOR DISCOMFORT AND ANXIETY. TURNED AND REPOSITIONED IN BED. ORAL CARE PROVIDED. HOSPICE CONSULTED AND THE DECISION WAS MADE FOR PT TO GO HOME WITH HOSPICE TOMORROW.
[2023-12-31 14:14] LABS: Chloride 114 mmol/L (98-107); Potassium 3.1 mmoL/L (3.5-5.1)
[2023-12-31 14:17] LABS: Blood Urea Nitrogen 40 mg/dl (7-17); Calcium 8.7 mg/dl (8.4-10.2); Creatinine Clearance Estimated 32 mL/min (50-200); Estimated Glomerular Filt Rate 100 ml/min (>60); GFR (African American) 121 ML/MIN (>60); Glucose 183 mg/dl (74-100)
[2023-12-31 14:24] LABS: Anion Gap 9.1 mEq/L (5-15); Carbon Dioxide 39 mmol/L (22.0-30.0)
[2023-12-31 14:27] LABS: Sodium 159 mmol/L (136-145)
[2024-01-01] VITALS: BP 82/51; PULSE 77; PULSE 80; RESP 20; TEMP 36.7; O2SAT 95
[2024-01-01] MEDS: DEXTROSE 5 % IN WATER 1,000 ML 50 ML IV (02:14)
[2024-01-01] MEDS: MORPHINE 2MG/ML SYRINGE 2 MG IV (02:15)
[2024-01-01 04:00] VITALS: PULSE 80; BMI 14.7
[2024-01-01] MEDS: ONDANSETRON 4MG/2ML VIAL 4 MG IV (04:32)
--- NOTE | 2024-01-01 04:38 | PC.NURSE ---
63 yo female pt has remained on venti mask throughout shift. She has been medicated with morphine throughout the night for reports of abdominal pain and for noted air hunger. She was also given zofran this am after complaining of nausea. D5 infusing at 50 ml per hour at family request. Oral care provided. Family has remained at bedside through the night. Plan in place for pt to discharge home with hospice today.
--- NOTE | 2024-01-01 07:46 | PC.NURSE ---
pt tolerating po thin liquids well this morning.
[2024-01-01 08:00] VITALS: BP 86/53; PULSE 80; PULSE 83; RESP 14; TEMP 36; O2SAT 93
--- NOTE | 2024-01-01 09:40 | EXP.PULM.PN ---
Subjective *Date: 01/01/24 *Time: 09:40 Pulmonology Exam Inpatient Vital signs and Labs for Last 24 Hours: Temp Pulse Resp BP Pulse Ox O2 Del Method O2 Flow Rate 96.8 F L 83 14 86/53 L 93 L Venturi Mask 12 01/01/24 08:00 01/01/24 08:00 01/01/24 08:00 01/01/24 08:00 01/01/24 08:00 01/01/24 08:54 01/01/24 08:54 FiO2 40 12/31/23 16:00 Laboratory Results - last 24 hr 12/31/23 13:40: Sodium 159 H*, Potassium 3.1 L D, Chloride 114 H, Carbon Dioxide 39 H, Anion Gap 9.1, BUN 40 H, Creatinine 0.60, Estimated Creat Clear 32, Estimated GFR 100, Est GFR ( Amer) 121, Glucose 183 H, Calcium 8.7 I & O for Labs for Last 24 Hours: Intake & Output 12/29/23 12/30/23 12/31/23 01/01/24 23:59 23:59 23:59 23:59 Intake Total 470 / 520 100 / 350 1008 / 1258 280 / 280 Output Total 450 / 450 0 / 0 0 / 0 Balance 20 / 70 100 / 350 1008 / 1258 280 / 280 Weight 80 lb 79 lb 15.986 oz 78 lb 8 oz 78 lb 0.698 oz Assessment and Plan *Assessment and plan (1) Acute exacerbation of chronic obstructive pulmonary disease: Status: Acute Category: Medical Code(s): J44.1 - Chronic obstructive pulmonary disease with (acute) exacerbation (2) Sepsis: Status: Acute Category: Medical Code(s): A41.9 - Sepsis, unspecified organism (3) Acute on chronic respiratory failure with hypoxia and hypercapnia: Status: Acute Category: Medical Code(s): J96.21 - Acute and chronic respiratory failure with hypoxia; J96.22 - Acute and chronic respiratory failure with hypercapnia (4) Pneumonia: Status: Acute Category: Medical Code(s): J18.9 - Pneumonia, unspecified organism Plan Ms. Mccrary is a 63-year-old female current smoker greater than 17-stot-sddt smoking history last seen in pulmonary clinic in October 2021, very severe COPD FEV1 at 26% predicted with significant reversibility, multiple pulmonary nodules presented to ER with worsening respiratory distress admitted for COPD exacerbation hypercarbic respiratory failure needing noninvasive ventilator therapy and pulmonary was called for further evaluation and management. Patient also due for 9-month follow-up CT chest on her last clinic visit, lost to follow-up. Labs on admission reviewed, no evidence of significant leukocytosis. Hypercarbic respiratory failure with a pH of 7.17 with a pCO2 of 75.5. Slightly improved from this morning at a pH of 7.27 with a pCO2 of 62.6. Chest x-ray from this morning no acute airspace disease/consolidation is noted. Hyperinflated lungs noted. No acute change compared to chest x-ray from admission. Currently receiving nebulization therapies azithromycin and methylprednisolone. cho normal EF at 55%. Diastolic dysfunction. RV moderately dilated. Along with mild to moderate hypokinesis noted. No intra or atrial shunt noted. Inadequate TR to measure RVSP. Small Pericardial effusion noted. On initial examination patient obtunded responding to painful stimuli. As per the family, patient continued to smoke. Using inhalers. Do not have access to nebulization therapies. Continued worsening respiratory status for the last 3 to 4 weeks progressively getting worse. Patient respiratory distress and hypercarbic respiratory failure gradually improving but however patient continued to have intermittent panic episodes were initially thought to be an ablation therapies however did not resolve despite changing her nebulization therapy to Xopenex/Trelegy inhaler. Patient family opted to discuss further plan of care with hospice at this point of time. Interval update: No acute respiratory events over the weekend. Continue intermittent panic episodes. Chest x-ray over the weekend no new airspace disease/consolidative changes noted. Stable from prior with new small bilateral pleural effusions. Blood cultures no growth 5 days. No sputum cultures available. Changed to Trelegy 100 inhaler along with DuoNebs as needed. Plan: Continue BiPAP therapy, 10/18 with a respiratory rate of 16 and FiO2 40% while asleep/nights for her chronic hypercarbic respiratory failure likely secondary to COPD Continue oxygen supplementation to maintain O2 saturation goal of 90 to 95% during the daytime and 3 to 4 L. Continue ceftriaxone azithromycin pending culture results to complete a total of 5-day course Continue Xopenex and ipratropium every 6 hours along with Pulmicort Q12 scheduled. Recommend to wean steroids prednisone 40 mg daily x 7 days followed by 20 mg daily x 7 days # Thank you for involving pulmonary in this patient care. Will continue to follow.
--- NOTE | 2024-01-01 11:15 | EXP.DC.SUM ---
General Admission date:: 12/25/23 Discharge date: 01/01/24 HPI HPI HPI: This is a 63-year-old very frail female with a past medical history of tobacco abuse, COPD, chronic respiratory failure on 3 L nasal cannula who presents to the emergency department in respiratory distress. Per ER providers report, she was very ill on arrival. States that she was not moving much air. She did undergo hour-long breathing treatment with improvement in air moving but did end up with hypoxia with oxygen saturations of 80% on 4 L requiring BiPAP. is at the bedside but is unable to provide much detailed history as he is hard of hearing and states that he does not deal with her day-to-day medical care. States that she is very stubborn and takes care of herself. He does state that she has had a rattly cough for several days. States that one of their grandkids had a viral illness this week. Further review of systems unable to be obtained. Patient is awake on BiPAP but appears somewhat tired. Will respond to questions but only endorses shortness of breath and cough Emergency department workup notable for compensated respiratory failure with a page of 7.38 and a pCO2 of 50. Elevated inflammatory markers with a CRP of 85. BNP of 186. Mag of 1.4. She is requiring BiPAP for maintenance of her respiratory drive. Per ED provider, she is now much improved than she was at baseline. Chest x-ray with groundglass opacities consistent with atypical pneumonia. She was covered with vancomycin, cefepime, azithromycin. Received hour-long DuoNeb, mag and Solu-Medrol and admitted to the hospitalist service. Hospital Course Hospital Course Hospital Course: 63-year-old COPD patient who still smokes who presented with respiratory failure. Patient currently being treated for respiratory distress secondary to sepsis causing COPD exacerbation. Patient also suffers from chronic weight loss secondary to severe protein caloric malnutrition. 12/29 Goals of care discussion occurred at bedside between patient, patient's , and Dr. Ash. Patient and have agreed to DNR/DNI status and comfort care. Hospice consultation placed 12/29. Patient and elected to transfer to hospice care. Discharged on 12/31 with plans for hospice admission at home. Patient is condition declining. Problems addressed as follows: # COPD exacerbation secondary to parainfluenza and possibly bacterial sepsis: ?12/29 goals of care discussion occurred today at bedside and patient now DNR/DNI. Hospice consultation in progress. Will discontinue heroic medications, and initiate comfort care measures including IV morphine/Ativan. ?12/27 patient had renewed respiratory distress and placed back on BiPAP today. Patient will likely require BiPAP nightly after hospital discharge. Appreciate pulmonology assistance! continue current care. ?12/26 increase Solu-Medrol to 40 IV every 6. Patient weaned from BiPAP overnight. Continue nebulization treatments, supplemental oxygen and wean as tolerated. Patient has agreed to stop smoking. ?12/26 continue current management. Patient improving on antibiotic therapy. Procalcitonin trending upwards while CRP trending downwards. Patient currently without leukocytosis or fever. - 12/25 Continue broad spectrum abx with azithromycin and Rocephin. Patient initially was given vancomycin and cefepime, will scale back to Rocephin and azithromycin. Monitor inflammatory markers elevated #Acute respiratory failure with hypoxia and hypercapnia -12/25 resp panel positive for parainfluenza. ?12/25 continue nebulization treatments, glucocorticoids, wean from BiPAP as tolerated, appreciate pulmonology assistance! Continue antibiotics. Spent over 15 minutes at bedside explaining to both patient and patient's that patient should stop smoking. ?Lactic acid negative but fluid sepsis bolus given in emergency room. Hyponatremia due to dehydration: ?Patient sodium level gradually crept up during admission. As high as 159 evening prior to discharge. Initiated on D5W in an attempt to improve this level. Due to change in goals of care, encourage p.o. free water. No further levels checked. #Tobacco use disorder ?Nicotine patches during admission. #Cachexia #Severe protein calorie malnutrition ?12/25 would recommend GI outpatient follow-up for chronic weight loss issue. Has been reports approximately 60 pound weight loss over the last couple years. Initiated on high-protein diet with boost during admission. Given goals of care, no GI referral made. Discharged to hospice care. Total time spent on discharge 32 minutes in counseling, documentation, chart review, and direct care with patient. Exam Data for Last 24 hours Vital signs and Labs for Last 24 Hours: Temp Pulse Resp BP Pulse Ox O2 Del Method O2 Flow Rate 96.8 F L 83 14 86/53 L 93 L Venturi Mask 12 01/01/24 08:00 01/01/24 08:00 01/01/24 08:00 01/01/24 08:00 01/01/24 08:00 01/01/24 08:54 01/01/24 08:54 FiO2 40 12/31/23 16:00 Laboratory Results - last 24 hr 12/31/23 13:40: Sodium 159 H*, Potassium 3.1 L D, Chloride 114 H, Carbon Dioxide 39 H, Anion Gap 9.1, BUN 40 H, Creatinine 0.60, Estimated Creat Clear 32, Estimated GFR 100, Est GFR ( Amer) 121, Glucose 183 H, Calcium 8.7 I & O for Last 24 hours: Intake & Output 12/29/23 12/30/23 12/31/23 01/01/24 23:59 23:59 23:59 23:59 Intake Total 470 / 520 100 / 350 1008 / 1258 280 / 280 Output Total 450 / 450 0 / 0 0 / 0 Balance 20 / 70 100 / 350 1008 / 1258 280 / 280 Weight 36.287 kg 36.287 kg 35.607 kg 35.4 kg Constitutional Constitutional: moderate distress, cachectic, chronically ill appearing and somnolent *Routine HEENT Exam Head: Present normocephalic Eye: Present EOMI and PERRL ENT: Present mucous membranes moist *Routine Neck Exam Neck: Present supple; Absent lymphadenopathy *Routine Respiratory Exam Respiratory: Present prolonged expiratory phase; Absent rhonchi, wheezes or crackles *Routine Cardiovascular Exam Cardiovascular: Present RRR *Routine Abdominal Exam Abdominal: Present soft and normoactive bowel sounds; Absent tenderness *Routine Extremities Exam Extremities: Absent cyanosis, clubbing or edema *Routine Skin Exam Skin: Present warm; Absent rash *Routine Neurological Exam Neurological: Present alert and oriented X3 Results Data Completed and Pending Labs on day of discharge: Labs from last 24 hours 12/31/23 13:40 Sodium 159 H* Potassium 3.1 L D Chloride 114 H Carbon Dioxide 39 H Anion Gap 9.1 BUN 40 H Creatinine 0.60 Estimated Creat Clear 32 Estimated GFR 100 Est GFR ( Amer) 121 Glucose 183 H Calcium 8.7 DS: Diagnosis Discharge Diagnosis (1) Acute exacerbation of chronic obstructive pulmonary disease: Status: Acute Code(s): J44.1 - Chronic obstructive pulmonary disease with (acute) exacerbation (2) Sepsis: Status: Acute Code(s): A41.9 - Sepsis, unspecified organism (3) Acute on chronic respiratory failure with hypoxia and hypercapnia: Status: Acute Code(s): J96.21 - Acute and chronic respiratory failure with hypoxia; J96.22 - Acute and chronic respiratory failure with hypercapnia (4) Pneumonia: Status: Acute Code(s): J18.9 - Pneumonia, unspecified organism Meds Home Medications and Allergies Home Medications ?Medication ?Instructions ?Recorded ?Confirmed ?Type furosemide 40 mg tablet 40 mg PO BID 03/09/21 12/26/23 History lamotrigine 300 mg tablet,extended 300 mg PO DAILY 03/09/21 12/26/23 History release 24 hr mirtazapine 30 mg tablet 30 mg PO HS 03/09/21 12/26/23 History oxycodone-acetaminophen 7.5 mg-325 1 tab PO BID 03/09/21 12/26/23 History mg tablet potassium chloride 20 mEq 20 meq PO DAILY 03/09/21 12/26/23 History tablet,extended release(part/cryst) sertraline 100 mg tablet 200 mg PO DAILY 03/09/21 12/26/23 History trazodone 150 mg tablet 150 mg PO HS 03/09/21 12/26/23 History aspirin 81 mg tablet,delayed 81 mg PO DAILY 12/26/23 12/26/23 History release glycopyrrolate 9 mcg-formoterol 2 puff inhalation BID 12/26/23 12/26/23 History 4.8 mcg HFA aerosol inhaler (Bevespi Aerosphere) albuterol sulfate 90 mcg/actuation 2 inh inhalation Q4HP PRN 01/01/24 12/26/23 Rx aerosol inhaler shortness of breath or wheezing 30 days #8.5 grams hyoscyamine sulfate 0.125 mg 0.125 mg PO QID #30 tabs 01/01/24 Rx tablet (Levsin) lorazepam 0.5 mg tablet 0.5 mg PO Q6H PRN anxiety 5 days 01/01/24 Rx #20 tabs morphine concentrate 100 mg/5 mL 5 mg (0.25 mL) PO Q6H PRN pain #30 01/01/24 Rx (20 mg/mL) oral solution mL New Prescriptions to Start Prescriptions: hyoscyamine sulfate [Levsin] Myke Luther lorazepam Myke Luther morphine concentrate Myke Luther Allergies Allergy/AdvReac Type Severity Reaction Status Date / Time No Known Allergies Allergy Verified 10/05/21 10:03 Discharge Plan Disposition Patient Disposition: Hospice - Home Condition: Serious Discharge Order Discharge Orders: Discharge Order (Routine); Ordered 01/01/24 Ordered By: Myke Luther Follow up Plan Prescriptions/Medication Reconciliation: New lorazepam 0.5 mg tablet 0.5 mg PO Q6H PRN (Reason: anxiety) 5 Days Qty: 20 0RF morphine concentrate 100 mg/5 mL (20 mg/mL) solution 5 mg PO Q6H PRN (Reason: pain) Qty: 30 0RF hyoscyamine sulfate [Levsin] 0.125 mg tablet 0.125 mg PO QID Qty: 30 0RF Continued lamotrigine 300 mg tablet extended release 24hr 300 mg PO DAILY oxycodone-acetaminophen 7.5-325 mg tablet 1 tab PO BID sertraline 100 mg tablet 200 mg PO DAILY potassium chloride 20 mEq tablet,ER particles/crystals 20 meq PO DAILY trazodone 150 mg tablet 150 mg PO HS furosemide 40 mg tablet 40 mg PO BID mirtazapine 30 mg tablet 30 mg PO HS aspirin 81 mg tablet,delayed release (DR/EC) 81 mg PO DAILY Patient Comments: TAKE ONE TABLET BY MOUTH EVERY DAY Bevespi Aerosphere 9-4.8 mcg HFA aerosol inhaler 2 puff inhalation BID Rx Instructions: INHALE TWO PUFFS BY MOUTH TWICE DAILY Changed albuterol sulfate 90 mcg/actuation HFA aerosol inhaler 2 inh INHALATION Q4HP PRN (Reason: shortness of breath or wheezing) 30 Days Qty: 8.5 0RF Discontinued spironolactone 50 mg tablet 50 mg PO BID atorvastatin 40 mg tablet 40 mg PO HS alendronate 70 mg tablet 70 mg PO WEEKLY Patient Comments: TAKE ONE TABLET BY MOUTH ONCE a WEEK Problem Reconciliation Problems Reviewed?: Yes Patient Discharge Instructions ACTIVITY: Continue current activity DIET: continue same diet Patient Instructions: DI for Chronic Obstructive Pulmonary Disease, DI for Pneumonia -- Adult, DI for Sepsis -- Adult, DI for Respiratory Failure Print Language: Italian Providers Primary Care Provider: Provider,Referral Admit Provider: Cruz Ash Attending Provider: Cruz Ash
[2024-01-01 12:00] VITALS: PULSE 80
== END 2024-01-01 13:43 | disposition hospice, home (50) | DRG 193 ==
LOC: ER 21:11 → 2ND 21:23
PROVIDERS: Internal Medicine; Internal Medicine Pulmonary Disease; Nurse Practitioner Acute Care; Nurse Practitioner Family; Admitting Provider Internal Medicine; Emergency Provider Emergency Medicine; Visit Provider Internal Medicine
DX: J18.9 Pneumonia, unspecified organism (principal); E43 Unspecified severe protein-calorie malnutrition; J96.21 Acute and chronic respiratory failure with hypoxia; J96.22 Acute and chronic respiratory failure with hypercapnia; J44.1 Chronic obstructive pulmonary disease with (acute) exacerbation; Z68.1 Body mass index [BMI] 19.9 or less, adult; R64 Cachexia; Z99.81 Dependence on supplemental oxygen; F17.210 Nicotine dependence, cigarettes, uncomplicated; E86.0 Dehydration; Z66 Do not resuscitate
CPT/HCPCS: 36415; 71045; 80048; 80053; 82803; 83605; 83735; 83880; 84145; 84484; 85007; 85025; 85027; 85378; 86140; 87040; 87581; 87632; 87635; 87798; 93005; 93306; 94640; 94660; 94761; 99285; J0456; J0696; J1650; J1940; J2060; J2270; J2405; J2919; J3370; J3475; J7050; J7060; J7120; J7613; J7620; J7644